=== PATIENT | male | born 1940 | race Caucasian/White ===

== ENCOUNTER 2017-11-11 13:42 | Outpatient (CLI) | payer MEDICARE ==
--- NOTE | 2017-11-11 15:25 | RAD ---
TWO VIEWS CHEST: COMPARISON: 11/20/14. HISTORY: Shortness of breath. FINDINGS: Atherosclerosis of the aorta. Enlarged cardiac silhouette. The pulmonary vessels are within normal limits. Costophrenic angles are clear. Chronic change in the lung bases. Possible focal mass versu s calcified granulomas are in the left suprahilar region measuring 0.7 cm. No pneumothorax or osseou s abnormalities. IMPRESSION: Calcified granuloma versus focal left suprahilar mass. Better interrogation with chest CT. CODE T POS: ERASMO
== END 2017-11-11 13:43 | disposition home or self-care (01) ==
LOC: RAD-FRANK 13:42
PROVIDERS: ATTEND Nurse Practitioner Family
DX: R06.02 Shortness of breath (principal)
CPT/HCPCS: 71046

== ENCOUNTER 2017-11-12 14:30 | Inpatient (IN) | payer MEDICARE ==
--- NOTE | 2017-11-12 15:28 | RAD ---
PORTABLE CHEST 1 VIEW: Date: 11/12/17 Time: 1515 hours HISTORY: Dyspnea. FINDINGS/IMPRESSION: Comparison made with exam of previous day. The heart size is normal. There are bilateral interstitial infiltrates. No lobar consolidation, pneum othoraces, or pleural effusions are seen. Degenerative changes are present in the spine. POS: CHRIS
[2017-11-12 15:52] LABS: #Basophils 0.2 thou/uL (0.0-0.2); #Lymphocytes 0.3 thou/uL (1.20-3.40); #Monocytes 0.1 thou/uL (0.11-0.59); #Neutrophils 10.4 thou/uL (1.40-6.50); %Basophils 1.6 % (0.0-1.0); %Eosinophils 0.2 % (0.0-10.0); %Lymphocytes 2.3 % (21.0-51.0); %Monocytes 0.6 % (0.0-10.0); %Neutrophils 95.3 % (42.0-75.0); Hemoglobin 16.4 g/dL (14.0-18.0); Mean Corpuscular HGB CONC 33.7 g/dL (32.0-36.0); Mean Corpuscular Volume 95.2 fl (80.0-94.0); Mean Platelet Volume 7.8 fL (7.4-10.4); Platelet Count 261 thou/uL (130-400); Red Blood Cell (RBC) Count 5.12 mill/uL (4.70-6.10); White Blood Cell (WBC) Count 10.9 thou/uL (4.8-10.8)
[2017-11-12 16:20] LABS: ALT (SGPT) 35 U/L (8-55); AST (SGOT) 21 U/L (5-34); Albumin 3.9 g/dL (3.4-4.8); Alkaline Phosphatase 127 U/L (40-150); Anion Gap 19 mmol/L (10-20); BUN (Urea Nitrogen) 15 mg/dL (8.4-25.7); Bilirubin, Total 1.2 mg/dL (0.2-1.2); CK (CPK) 115 U/L (30-200); Calc. Creatinine Clearance 0 mL/min (70-130); Calcium 9.5 mg/dL (7.8-10.44); Carbon Dioxide 23 mmol/L (23-31); Chloride 99 mmol/L (98-107); Estimated GFR-MDRD 61; Globulin 3.4 g/dL (2.4-3.5); Glucose 362 mg/dL (83-110); Potassium 4.4 mmol/L (3.5-5.1); Protein, Total 7.3 g/dL (5.8-8.1); Sodium 137 mmol/L (136-145)
[2017-11-12 16:24] LABS: CKMB 4.2 ng/mL (0-6.6); Troponin I 0.067 ng/mL (< 0.028)
[2017-11-12] MEDS ORDERED: Nitroglycerin 0.4 MG TAB (25 Tab Bottle) ONE (17:26)
[2017-11-12] MEDS ORDERED: Furosemide 20 MG/2 ML VIAL ONE (19:45)
[2017-11-12] MEDS ORDERED: Norepinephrine 4 MG/4 ML VIAL ONE (20:22)
[2017-11-12] MEDS ORDERED: Acetaminophen 325 MG TAB PO PRN ×2 (22:26→22:34)
[2017-11-12] MEDS ORDERED: Ondansetron HCl/PF 4 MG/2 ML Vial IVP PRN (22:34)
[2017-11-12] MEDS ORDERED: traMADol HCl 50 MG TAB PO PRN (22:34)
[2017-11-12] MEDS ORDERED: cloNIDine 0.1 MG TAB PO PRN (22:34)
[2017-11-12] MEDS ORDERED: hydrALAZINE 20 MG/ML VIAL SLOW IVP PRN (22:34)
[2017-11-12] MEDS ORDERED: Nitroglycerin 0.4 MG TAB (25 Tab Bottle) SL PRN (22:34)
[2017-11-12] MEDS ORDERED: Loratadine 10 MG TAB PO PRN (22:34)
[2017-11-12] MEDS ORDERED: Calcium Carbonate 500 MG ChewTAB PO PRN (22:34)
[2017-11-12] MEDS ORDERED: Guaifenesin DM 100-10/5 ML UDCUP PO PRN (22:34)
[2017-11-12] MEDS ORDERED: Benzonatate 100 MG CAP PO PRN (22:34)
[2017-11-12] MEDS ORDERED: Dextrose 50% Abboject 50 ML SYRINGE SLOW IVP PRN (22:34)
[2017-11-12] MEDS ORDERED: Bisacodyl 5 MG TAB PO PRN ×2 (22:34)
[2017-11-12] MEDS ORDERED: Dextrose 5% in Water 1,000 ML IV PRN (22:34)
[2017-11-12] MEDS ORDERED: Mag-Al 1200 mg/1200 mg/30 ML UDCUP PO PRN (22:34)
[2017-11-12] MEDS ORDERED: Senokot 8.6 MG TAB PO PRN ×2 (22:34)
[2017-11-12] MEDS ORDERED: HumaLOG 300 UNITS/3 ML VIAL SC PRN (22:34)
[2017-11-12 22:46] VITALS: BMI 28.3
--- NOTE | 2017-11-13 04:37 | HP ---
PRIMARY CARE PHYSICIAN: ADIA Das DATE OF ADMISSION: 11/12/2017 Please note that the patient was seen prior to midnight. CHIEF COMPLAINT: Worsening shortness of breath. HISTORY OF PRESENT ILLNESS: Mr. Clinton is a very pleasant 77-year-old male with past medical history of diabetes mellitus who presented to the emergency room with the above-mentioned complaints. Histor y is mainly obtained by the patient himself and electronic medical records have been reviewed. The p atient reports that he has been healthy most of his life up until now. He started to have some diffi culty walking to his mailbox about 2 weeks ago. He started to experience dry hacking cough. He repo rts that his was admitted to the hospital recently and he has been in and out of the hospital an d seems like he "caught something from the hospital." Nevertheless, his breathing got worse and he p resented to the emergency room. He keeps emphasizing that he has been otherwise very healthy all of his life and never needed physician. He uses Radha Alfredo, nurse practitioner for his diabetic prescr iption, but otherwise does not necessarily have any specific medical care. Upon presentation to the emergency room, his pulse was 101 and he was quite hypertensive with blood p ressure of 191/109. He was saturating 100% on room air and was afebrile. His physical examination was consistent with bilateral pitting edema in lower extremities. He underw ent EKG, which showed left ventricular hypertrophy without any acute ST or T-wave changes. His chest x-ray was concerning for bilateral interstitial infiltrates versus edema. He received aspirin, levo floxacin, and Lasix in the emergency room. His BNP was elevated to 1500. The patient denies any history of any heart disease. He denies any chest pain recently. He denies a ny fever or chills. Except for dry hacking cough and worsening shortness of breath for the last 2 we eks, he says he has been very healthy most of his life. PAST MEDICAL HISTORY: Diabetes mellitus, type 2, non-insulin dependent. PAST SURGICAL HISTORY: Carotid artery stenting. PAST PSYCHIATRIC HISTORY: No anxiety, depression. SOCIAL HISTORY: He is and lives with his and is very independent with his ADLs and IADL s. He used to chew tobacco, but has quit several years ago. No history of drug or alcohol abuse. FAMILY HISTORY: He denies any family members ever having any heart attack or stroke. He said most o f his family members lived to rather ripe old age, very healthy. ALLERGIES: No known medication allergies. CURRENT MEDICATIONS: Cozaar 50 mg at bedtime and Tenormin 50 mg daily. REVIEW OF SYSTEMS: The following complete review of systems was negative, unless otherwise mentioned in the HPI or below: Constitutional: Weight loss or gain, ability to conduct usual activities. Sk in: Rash, itching. Eyes: Double vision, pain. ENT/Mouth: Nose bleeding, neck stiffness, pain, te nderness. Cardiovascular: Palpitations, dyspnea on exertion, orthopnea. Respiratory: Shortness of breath, wheezing, cough, hemoptysis, fever or night sweats. Gastrointestinal: Poor appetite, abdom inal pain, heartburn, nausea, vomiting, constipation, or diarrhea. Genitourinary: Urgency, frequenc y, dysuria, nocturia. Musculoskeletal: Pain, swelling. Neurologic/Psychiatric: Anxiety, depressio n. Allergy/Immunologic: Skin rash, bleeding tendency. LABORATORY AND DIAGNOSTIC DATA: His CBC shows WBCs at 10.9 with 95% neutrophils. Serum chemistries show blood sugar of 362, troponin 0.067, and BNP 1594, otherwise unremarkable. His influenza rapid s wab is negative. His 12-lead EKG shows left ventricular hypertrophy by my review and normal sinus rh ythm, otherwise unremarkable. Chest x-ray by my review shows bilateral pulmonary vascular congestion and interstitial edema, but infiltrates can also not be ruled out. PHYSICAL EXAMINATION: VITAL SIGNS: His most recent vital signs include temperature 98.4, pulse of 95, respirations 20, sat urating 97% on room air, blood pressure 133/84. GENERAL: No acute distress, awake, alert, oriented x3. HEENT: Mucous membrane is moist and pink. No oropharyngeal exudate or erythema. Head is normocepha lic, atraumatic. Pupils are equal, reactive to light and accommodation. Extraocular movements are i ntact. NECK: Supple without any lymphadenopathy, JVD, or bruit. CHEST: Clear to auscultation, surprisingly without any wheezing, rales, or rhonchi. Equal air entry heart bilaterally. CARDIOVASCULAR: Rate and rhythm is regular without any significant murmur. ABDOMEN: Obese, soft, nontender, nondistended with positive bowel sounds. EXTREMITIES: Showed pitting edema bilaterally extending from toes almost up to his knees. NEUROLOGIC: Nonfocal. PSYCHIATRIC: Normal affect. SKIN: Free of any rashes or bruises. Feels warm and dry to touch. IMPRESSION AND PLAN: 1. New diagnosis of acute onset of congestive heart failure. It is unclear what is the etiology for this. Given his history of hypertension, diabetes, and tobacco abuse, coronary artery disease is mo st likely suspected. He can also have viral myocarditis given his prodromal symptoms of flu-like ill ness with last 2 weeks. Nevertheless, he will be admitted and continued on IV diuresis and we will o btain a transthoracic echocardiogram. Continue to trend serial cardiac enzymes and provide tighter b lood pressure control. We will also request consultation with Cardiology in the morning as well as c ardiac rehabilitation in the [facility] Failure [facility]. We will monitor strict I's and O's and provide hi m with fluid restriction of 1800 mL per day. 2. Hypertensive urgency. The patient's blood pressure is under better control. At this time, he wi ll be restarted on his home medication and we will add p.r.n. antihypertensives. 3. History of hypertension. Resume his losartan and Tenormin at this point. 4. Elevated cardiac enzymes, most likely due to hypertensive urgency and acute congestive heart fail ure. We will put him on aspirin and check lipid panel as well. Continue beta esther. 5. Diabetes mellitus, type 2. I am not sure what kind of medications the patient takes at home. We will put him on insulin sliding scale and do frequent Accu-Cheks. 6. Perform a respiratory viral panel to rule out influenza. 7. Deep venous thrombosis and gastrointestinal prophylaxis. CODE STATUS: FULL CODE. DISPOSITION: Mr. Clinton is currently being admitted to the hospital for acute new onset congestive he art failure and hypertensive urgency. Estimated length of stay is at least 2-3 midnight. Further management will depend upon his clinical course.
[2017-11-13] MEDS: Furosemide 40 MG/4 ML VIAL SLOW IVP SCH ×2 (05:24→14:27)
[2017-11-13 06:14] LABS: #Eosinphils 0.1 thou/uL (0.0-0.7); #Lymphocytes 0.8 thou/uL (1.20-3.40); #Monocytes 0.8 thou/uL (0.11-0.59); #Neutrophils 7.9 thou/uL (1.40-6.50); %Basophils 0.1 % (0.0-1.0); %Eosinophils 0.8 % (0.0-10.0); %Lymphocytes 8.5 % (21.0-51.0); %Monocytes 8.6 % (0.0-10.0); %Neutrophils 82.1 % (42.0-75.0); Hemoglobin 14.6 g/dL (14.0-18.0); Mean Corpuscular HGB CONC 33.5 g/dL (32.0-36.0); Mean Corpuscular Hemoglobin 31.9 pg (27.0-31.0); Mean Corpuscular Volume 95.2 fl (80.0-94.0); Mean Platelet Volume 7.6 fL (7.4-10.4); Platelet Count 248 thou/uL (130-400); RBC Distribution Width 12.9 % (11.5-14.5); Red Blood Cell (RBC) Count 4.56 mill/uL (4.70-6.10); White Blood Cell (WBC) Count 9.7 thou/uL (4.8-10.8)
[2017-11-13 06:34] LABS: Anion Gap 12 mmol/L (10-20); BUN (Urea Nitrogen) 18 mg/dL (8.4-25.7); Calc. Creatinine Clearance 69 mL/min (70-130); Calcium 9.3 mg/dL (7.8-10.44); Carbon Dioxide 26 mmol/L (23-31); Chloride 102 mmol/L (98-107); Estimated GFR-MDRD 71; Glucose 230 mg/dL (83-110); Potassium 3.8 mmol/L (3.5-5.1); Sodium 136 mmol/L (136-145)
[2017-11-13 06:36] LABS: Troponin I 0.081 ng/mL (< 0.028)
[2017-11-13] MEDS ORDERED: Sodium Chloride 0.9% 10 ML ONE (07:35)
[2017-11-13] MEDS: Atenolol 50 MG TAB PO SCH (07:55)
[2017-11-13] MEDS: Aspirin 325 mg Enteric Coated Tablet PO SCH (07:56)
[2017-11-13] MEDS: Famotidine 20 MG TAB PO SCH ×2 (07:56→21:17)
[2017-11-13] MEDS: Enoxaparin Sodium 40 MG/0.4 ML SYRINGE SC SCH (07:57)
[2017-11-13] MEDS: HumaLOG 300 UNITS/3 ML VIAL SC PRN (08:06)
[2017-11-13 09:28] LABS: Troponin I 0.094 ng/mL (< 0.028)
[2017-11-13 11:50] LABS: Hemoglobin A1c 4.5 % (4.0-6.0)
--- NOTE | 2017-11-13 12:51 | PDOC.PN ---
- Subjective Encounter Start Date: 11/13/17 Encounter Start Time: 10:15 Subjective: breathing better, no chest pain - Objective MAR Reviewed: Yes Vital Signs & Weight: Vital Signs (12 hours) Temp Pulse Pulse Pulse Resp BP BP 11/13/17 12:22 69 70 138/77 11/13/17 11:08 97.6 F 68 17 11/13/17 07:55 77 173/86 H 11/13/17 07:10 98.1 F 77 17 11/13/17 03:42 98.4 F 95 20 11/13/17 02:39 BP BP Pulse Ox Pulse Ox Pulse Ox 11/13/17 12:22 138/84 98 96 11/13/17 11:08 138/83 97 11/13/17 07:55 11/13/17 07:10 173/86 H 98 11/13/17 03:42 133/84 97 11/13/17 02:39 96 Weight Weight 179 lb 8 oz I&O: 11/12/17 11/13/17 11/14/17 06:59 06:59 06:59 Intake Total 250 Output Total 600 Balance -350 Result Diagrams: 11/13/17 05:47 11/13/17 05:47 Additional Labs: Accuchecks 11/13/17 11/13/17 11:21 06:38 POC Glucose 154 H 216 H Phys Exam - Physical Examination HEENT: PERRLA, moist MMs Neck: no JVD, supple Respiratory: no wheezing, no rales Cardiovascular: RRR murmur++ Gastrointestinal: soft, non-tender, positive bowel sounds Musculoskeletal: pulses present Neurological: non-focal, moves all 4 limbs Psychiatric: A&O x 3 Dx/Plan (1) Acute exacerbation of CHF (congestive heart failure) Code(s): I50.9 - HEART FAILURE, UNSPECIFIED Status: Acute Qualifiers: Congestive heart failure type: unspecified congestive heart failure type Qualified Code(s): I50.9 - Heart failure, unspecified (2) DM type 2 (diabetes mellitus, type 2) Status: Chronic Qualifiers: Diabetes mellitus complication status: with unspecified complications Diabetes mellitus residential insulin use: without extermination supervisor use Qualified Code( s): E11.8 - Type 2 diabetes mellitus with unspecified complications (3) Carotid arterial disease Code(s): I77.9 - DISORDER OF ARTERIES AND ARTERIOLES, UNSPECIFIED Status: Chronic Qualifiers: Laterality: bilateral Qualified Code(s): I77.9 - Disorder of arteries and arterioles, unspecified Comment: prior h/o stents b/l by ? (4) HTN (hypertension) Code(s): I10 - ESSENTIAL (PRIMARY) HYPERTENSION Status: Chronic Qualifiers: Hypertension type: essential hypertension Qualified Code(s): I10 - Essential (primary) hypertension - Plan has significant murmur, await echo results -: diuresing well -: is on lasix iv q12h, atenolol and cozaar -: mobilize as tolerated * . Review of Systems - Medications/Allergies Allergies/Adverse Reactions: Allergies Allergy/AdvReac Type Severity Reaction Status Date / Time No Known Drug Allergies Allergy Verified 11/12/17 22:29 Medications: Current Medications Acetaminophen (Tylenol) 650 mg PO Q4H PRN PRN Reason: Headache/Fever or Pain Al Hydroxide/Mg Hydroxide (Maalox) 30 ml PO Q6H PRN PRN Reason: Heartburn or Indigestion Aspirin (Ecotrin) 325 mg PO DAILY [facility] Last Admin: 11/13/17 07:56 Dose: 325 mg Atenolol (Tenormin) 50 mg PO DAILY [facility] Last Admin: 11/13/17 07:55 Dose: 50 mg Benzonatate (Tessalon) 100 mg PO Q4H PRN PRN Reason: Cough Bisacodyl (Dulcolax) 10 mg PO DAILYPRN PRN PRN Reason: Constipation Bisacodyl (Dulcolax) 10 mg PO DAILYPRN PRN PRN Reason: Constipation Calcium Carbonate (Tums) 1,000 mg PO Q4H PRN PRN Reason: Heartburn or Indigestion Clonidine (Catapres) 0.1 mg PO Q4H PRN PRN Reason: Systolic BP > 160 Dextrose/Water (Dextrose 50%) 25 gm SLOW IVP PRN PRN PRN Reason: Hypoglycemia Enoxaparin Sodium (Lovenox) 40 mg SC 0900 [facility] Last Admin: 11/13/17 07:57 Dose: 40 mg Famotidine (Pepcid) 20 mg PO BID [facility] Last Admin: 11/13/17 07:56 Dose: 20 mg Furosemide (Lasix) 40 mg SLOW IVP 0600,1400 [facility] Last Admin: 11/13/17 05:24 Dose: 40 mg Glucagon (Glucagon) 1 mg IM PRN PRN PRN Reason: Hypoglycemia Guaifenesin/Dextromethorphan (Robitussin Dm) 15 ml PO Q4H PRN PRN Reason: Cough Hydralazine HCl (Apresoline) 10 mg SLOW IVP Q4H PRN PRN Reason: Systolic BP > 180 Dextrose/Water (D5w) 1,000 mls @ 0 mls/hr IV .Q0M PRN; As Directed PRN Reason: Hypoglycemia Levofloxacin 500 mg/ Device 100 mls @ 100 mls/hr IVPB Q24HR [facility] Influenza Virus Vaccine (Fluzone High-Dose Syr) 0.5 ml IM .ONCE ONE Stop: 11/13/17 21:01 Insulin Human Lispro (Humalog) 0 units SC .MODERATE SLIDING SC PRN PRN Reason: Moderate Correctional Scale Last Admin: 11/13/17 08:06 Dose: 4 unit Insulin Human Lispro (Humalog) 0 units SC .BEDTIME SLIDING SC PRN PRN Reason: Bedtime Correctional Scale Loratadine (Claritin) 10 mg PO DAILYPRN PRN PRN Reason: Sinus Symptoms Losartan Potassium (Cozaar) 50 mg PO HS [facility] Nitroglycerin (Nitrostat) 0.4 mg SL Q5MIN PRN PRN Reason: Chest Pain Ondansetron HCl (Zofran) 4 mg IVP Q6H PRN PRN Reason: Nausea/Vomiting Pneumococcal 13-Valent Conj Vacc (Prevnar) 0.5 ml IM .ONCE ONE Stop: 11/13/17 21:01 Senna (Senokot) 2 tab PO HSPRN PRN PRN Reason: Constipation Senna (Senokot) 2 tab PO HSPRN PRN PRN Reason: Constipation Tramadol HCl (Ultram) 50 mg PO Q4H PRN PRN Reason: Moderate Pain (4-6)
--- NOTE | 2017-11-13 13:50 | CON ---
DATE OF CONSULTATION: 11/13/2017 CARDIOLOGY CONSULTATION REASON FOR CONSULTATION: Heart failure. PRIMARY BLINDSTITCH LINING FELLER: Alexandru Patterson M.D. HISTORY OF PRESENT ILLNESS: Mr. Clinton is a very pleasant 77-year-old white gentleman who comes to [facility] for shortness of breath. He has been noticing increasingly worsening shortness of breath for the last 2 weeks to the point where he could not lay flat without coughing. He came in for this and was found to be in pulmonary edema with elevated BNP. He was started on IV diuresis yesterday an d is doing much better today. He states he already feels better. He has a significant history of co ronary artery disease. In 2007, he had an acute WI and ended up having a stent to the LAD as well as the RCA. He followed up with Dr. Patterson for a few months after that. He had an echo done in 2007 at which point his EF was about 45%-50% and he had an aortic valve sclerosis, but no stenosis. He never really followed up after the end of 2007 and he is not aware of having had any issues with h is heart since then. Currently, he denies any chest pain, tightness or pressure. Only his shortness of breath. PAST MEDICAL HISTORY: 1. Type 2 diabetes. 2. Coronary artery disease as above. PAST SURGICAL HISTORY: He gives a history of carotid stenting; however, he states Dr. Patterson put in these stents. I do not believe that Dr. Patterson puts carotid stents and he is most likely talki ng about the coronary stents that he received during his episode of an WI in 2007. SOCIAL HISTORY: Chews tobacco, but quit several years ago. No drug or alcohol use. FAMILY HISTORY: Noncontributory. ALLERGIES: No known drug allergies. OUTPATIENT MEDICATIONS: Include, 1. Cozaar 50 mg at bedtime. 2. Tenormin 50 mg a day. REVIEW OF SYSTEMS: A 12-point review of systems was done and is all negative unless stated in the hi story of present illness. PHYSICAL EXAMINATION: VITAL SIGNS: Temperature 97.6, pulse 68, respiration rate 17, satting 97% on room air, blood pressur e 138/83. GENERAL: Awake, alert, oriented x3, in no distress. HEENT: Normocephalic, atraumatic. NECK: Supple. LUNGS: Mild crackles at the bases. CARDIOVASCULAR: S1, S2. There is a grade 3/6 systolic murmur in the right upper sternal border, mid to late peaking. It radiates to the rest of the precordium. ABDOMEN: Soft, positive bowel sounds. EXTREMITIES: 1+ edema. SKIN: Warm and dry. LABORATORY WORK: Reviewed. White count of 10, hemoglobin of 16, platelet count of 261. Chemistry w as unremarkable except for a glucose of 230. His GFR is 71. His troponins were 0.06, 0.08, 0.09. H is BNP was 2047. Albumin of 3.9. EKG was reviewed. Chest x-ray was reviewed, bilateral interstitial infiltrates, most likely edema. ASSESSMENT AND PLAN: 1. Ischemic cardiomyopathy, most likely: He has not had an evaluation of his LV function for many y ears. 2. Coronary artery disease, status post percutaneous coronary intervention of the LAD and left circu mflex about 10 years ago with no followup. 3. Noncompliance with followup. 4. Most likely new onset cardiomyopathy. 5. Acute most likely systolic heart failure. PLAN: 1. Continue IV diuresis. 2. Echocardiogram to be done to assess LV function and valvular structures. 3. I suspect aortic valve stenosis as well. He had aortic valve sclerosis 10 years ago, but this mo st likely has progressed since. Thank you for letting us participate in the care of your patient. We will continue to follow.
[2017-11-13] MEDS ORDERED: Prevnar 13-Val Conj/PF 0.5 ML SYRINGE IM ONE (21:00)
[2017-11-13] MEDS ORDERED: Losartan 25 MG TAB PO SCH (21:00)
[2017-11-13] MEDS ORDERED: FLU VACC TS2017-18 (>65YR) 0.5 ML SYRINGE IM ONE (21:00)
[2017-11-14] MEDS: Furosemide 40 MG/4 ML VIAL SLOW IVP SCH ×2 (05:54→14:09)
[2017-11-14] MEDS ORDERED: Sodium Chloride 0.9% 10 ML ONE (07:12)
[2017-11-14] MEDS: Aspirin 325 mg Enteric Coated Tablet PO SCH (09:05)
[2017-11-14] MEDS: Enoxaparin Sodium 40 MG/0.4 ML SYRINGE SC SCH (09:06)
[2017-11-14] MEDS: Atenolol 50 MG TAB PO SCH (09:06)
[2017-11-14] MEDS: Famotidine 20 MG TAB PO SCH ×2 (09:07→20:25)
--- NOTE | 2017-11-14 11:15 | PDOC.PN ---
- Subjective Encounter Start Date: 11/14/17 Encounter Start Time: 10:15 Subjective: breathing better -: no chest pain or palp - Objective MAR Reviewed: Yes Vital Signs & Weight: Vital Signs (12 hours) Temp Pulse Resp BP BP Pulse Ox 11/14/17 09:06 64 174/81 H 11/14/17 07:58 97.7 F 64 18 98 11/14/17 07:55 97.7 F 64 18 174/81 H 98 11/14/17 03:58 97.9 F 62 16 176/89 H 98 Weight Weight 178 lb 1.6 oz I&O: 11/13/17 11/14/17 11/15/17 06:59 06:59 06:59 Intake Total 1510 Output Total 2650 Balance -1140 Result Diagrams: 11/13/17 05:47 11/13/17 05:47 Additional Labs: Accuchecks 11/14/17 11/13/17 11/13/17 05:40 21:35 17:19 POC Glucose 166 H 260 H 235 H 11/13/17 11:21 POC Glucose 154 H Phys Exam - Physical Examination HEENT: PERRLA, moist MMs Neck: no JVD, supple Respiratory: no wheezing, no rales Cardiovascular: RRR murmur++ Gastrointestinal: soft, no distention, positive bowel sounds Musculoskeletal: no edema, pulses present Neurological: non-focal, moves all 4 limbs Psychiatric: A&O x 3 Dx/Plan (1) Acute exacerbation of CHF (congestive heart failure) Code(s): I50.9 - HEART FAILURE, UNSPECIFIED Status: Acute Qualifiers: Congestive heart failure type: systolic Qualified Code(s): I50.23 - Acute on chronic systolic (congestive) heart failure Comment: ef of 20% (2) DM type 2 (diabetes mellitus, type 2) Status: Chronic Qualifiers: Diabetes mellitus complication status: with unspecified complications Diabetes mellitus penitentiary insulin use: without terminal superintendent use Qualified Code( s): E11.8 - Type 2 diabetes mellitus with unspecified complications (3) Carotid arterial disease Code(s): I77.9 - DISORDER OF ARTERIES AND ARTERIOLES, UNSPECIFIED Status: Chronic Qualifiers: Laterality: bilateral Qualified Code(s): I77.9 - Disorder of arteries and arterioles, unspecified Comment: prior h/o stents b/l? (4) HTN (hypertension) Code(s): I10 - ESSENTIAL (PRIMARY) HYPERTENSION Status: Chronic Qualifiers: Hypertension type: essential hypertension Qualified Code(s): I10 - Essential (primary) hypertension (5) Aortic stenosis, severe Code(s): I35.0 - NONRHEUMATIC AORTIC (VALVE) STENOSIS Status: Acute - Plan ef of 15-20%, aortic valve area of 0.5cm square -: gentle diuresis -: will need cath? likely, possible tavr as outpt -: on asp, atenolol, cozaar, iv lasix -: viral pcr is -ve, levaquin for 3 days, no fever after admission * . Review of Systems - Medications/Allergies Allergies/Adverse Reactions: Allergies Allergy/AdvReac Type Severity Reaction Status Date / Time No Known Drug Allergies Allergy Verified 11/12/17 22:29 Medications: Current Medications Acetaminophen (Tylenol) 650 mg PO Q4H PRN PRN Reason: Headache/Fever or Pain Al Hydroxide/Mg Hydroxide (Maalox) 30 ml PO Q6H PRN PRN Reason: Heartburn or Indigestion Aspirin (Ecotrin) 325 mg PO DAILY [facility] Last Admin: 11/14/17 09:05 Dose: 325 mg Atenolol (Tenormin) 50 mg PO DAILY [facility] Last Admin: 11/14/17 09:06 Dose: 50 mg Benzonatate (Tessalon) 100 mg PO Q4H PRN PRN Reason: Cough Bisacodyl (Dulcolax) 10 mg PO DAILYPRN PRN PRN Reason: Constipation Bisacodyl (Dulcolax) 10 mg PO DAILYPRN PRN PRN Reason: Constipation Calcium Carbonate (Tums) 1,000 mg PO Q4H PRN PRN Reason: Heartburn or Indigestion Clonidine (Catapres) 0.1 mg PO Q4H PRN PRN Reason: Systolic BP > 160 Dextrose/Water (Dextrose 50%) 25 gm SLOW IVP PRN PRN PRN Reason: Hypoglycemia Enoxaparin Sodium (Lovenox) 40 mg SC 0900 [facility] Last Admin: 11/14/17 09:06 Dose: 40 mg Famotidine (Pepcid) 20 mg PO BID [facility] Last Admin: 11/14/17 09:07 Dose: 20 mg Furosemide (Lasix) 40 mg SLOW IVP 0600,1400 [facility] Last Admin: 11/14/17 05:54 Dose: 40 mg Glucagon (Glucagon) 1 mg IM PRN PRN PRN Reason: Hypoglycemia Guaifenesin/Dextromethorphan (Robitussin Dm) 15 ml PO Q4H PRN PRN Reason: Cough Hydralazine HCl (Apresoline) 10 mg SLOW IVP Q4H PRN PRN Reason: Systolic BP > 180 Dextrose/Water (D5w) 1,000 mls @ 0 mls/hr IV .Q0M PRN; As Directed PRN Reason: Hypoglycemia Levofloxacin 500 mg/ Device 100 mls @ 100 mls/hr IVPB Q24HR [facility] Last Admin: 11/13/17 21:17 Dose: 100 mls Insulin Human Lispro (Humalog) 0 units SC .MODERATE SLIDING SC PRN PRN Reason: Moderate Correctional Scale Last Admin: 11/13/17 08:06 Dose: 4 unit Insulin Human Lispro (Humalog) 0 units SC .BEDTIME SLIDING SC PRN PRN Reason: Bedtime Correctional Scale Loratadine (Claritin) 10 mg PO DAILYPRN PRN PRN Reason: Sinus Symptoms Losartan Potassium (Cozaar) 50 mg PO HS [facility] Last Admin: 11/13/17 21:17 Dose: 50 mg Nitroglycerin (Nitrostat) 0.4 mg SL Q5MIN PRN PRN Reason: Chest Pain Ondansetron HCl (Zofran) 4 mg IVP Q6H PRN PRN Reason: Nausea/Vomiting Senna (Senokot) 2 tab PO HSPRN PRN PRN Reason: Constipation Senna (Senokot) 2 tab PO HSPRN PRN PRN Reason: Constipation Tramadol HCl (Ultram) 50 mg PO Q4H PRN PRN Reason: Moderate Pain (4-6)
[2017-11-14] MEDS: HumaLOG 300 UNITS/3 ML VIAL SC PRN (11:41)
--- NOTE | 2017-11-14 16:35 | PDOC.CTH ---
Cardiology Progress Note - Subjective he is doing well. he has diuresed and his breathing is much better. on room air now. - Objective Vital Signs Temp Pulse Pulse Pulse Resp BP BP 11/14/17 16:05 98.1 F 60 18 11/14/17 12:38 79 78 170/81 H 11/14/17 11:40 98.2 F 58 L 18 11/14/17 09:06 64 174/81 H 11/14/17 07:58 97.7 F 64 18 11/14/17 07:55 97.7 F 64 18 BP BP Pulse Ox Pulse Ox Pulse Ox 11/14/17 16:05 147/78 H 96 11/14/17 12:38 157/82 H 99 95 11/14/17 11:40 154/72 H 98 11/14/17 09:06 11/14/17 07:58 98 11/14/17 07:55 174/81 H 98 Weight 178 lb 1.6 oz 11/13/17 11/14/17 11/15/17 06:59 06:59 06:59 Intake Total 1510 Output Total 2650 Balance -1140 - Physical Examination General/Neuro: alert & oriented x3, NAD Neck: no JVD present Lungs: unlabored respirations Heart: RRR Abdomen: NT/ND Extremities: other: (no edema.) - Telemetry Telemetry Rhythm: NSR - Labs Result Diagrams: 11/13/17 05:47 11/13/17 05:47 Troponin/CKMB CK-MB (CK-2) 4.2 ng/mL (0-6.6) 11/12/17 15:41 Troponin I 0.094 ng/mL (< 0.028) H 11/13/17 08:34 - Assessment/Plan 1. Acute on chronic systolic heart failure. 2. CAD s/p stent to LAD and LCX 10 yrs ago no follow up. 3. Non compliance. 4. HTN no t well controlled. PLAN: - [facility] for risk stratification per Dr. Patterson tomorrow. - Continue other meds. - Will increase Losartan to 100 mg daily. Continue atenolol.
[2017-11-14] MEDS ORDERED: Communication Order-Pharmacy FS SCH (16:45)
[2017-11-14] MEDS ORDERED: Sodium Chloride 0.9% 1,000 ML IV SCH (16:45)
[2017-11-14] MEDS: Losartan 25 MG TAB PO SCH (20:25)
[2017-11-15 05:39] LABS: Anion Gap 10 mmol/L (10-20); BUN (Urea Nitrogen) 20 mg/dL (8.4-25.7); Calc. Creatinine Clearance 64 mL/min (70-130); Calcium 9.3 mg/dL (7.8-10.44); Carbon Dioxide 32 mmol/L (23-31); Chloride 99 mmol/L (98-107); Estimated GFR-MDRD 66; Glucose 133 mg/dL (83-110); Potassium 3.4 mmol/L (3.5-5.1); Sodium 138 mmol/L (136-145)
[2017-11-15] MEDS: Sodium Chloride 0.9% 1,000 ML IV SCH (05:43)
[2017-11-15] MEDS: Famotidine 20 MG TAB PO SCH ×2 (05:44→20:57)
[2017-11-15] MEDS: Aspirin 325 mg Enteric Coated Tablet PO SCH (05:46)
[2017-11-15] MEDS: Atenolol 50 MG TAB PO SCH (07:33)
[2017-11-15] MEDS ORDERED: Iopamidol 370 76% 100 ML VIAL ONE (11:03)
[2017-11-15] MEDS ORDERED: Lidocaine 1% (PF) 30 ML VIAL ONE (12:00)
[2017-11-15] MEDS ORDERED: Fentanyl 100 MCG/2 ML VIAL ONE (12:28)
[2017-11-15] MEDS ORDERED: Midazolam HCl 2 mg/2 ml Vial ONE (12:28)
--- NOTE | 2017-11-15 12:46 | PRG ---
DATE OF SERVICE: 11/15/2017 HISTORY OF PRESENT ILLNESS: Mr. Clinton today is doing well. No chest pain or pressure noted. I did review his echo. He appeared to have moderate to severe aortic stenosis. It was heavily calci fied. His calculated valve area was 0.5, although his LVEF was markedly diminished making the gradie nts underestimated. RECOMMENDATIONS: At this point, I would recommend a left and right heart catheterization to assess a ortic stenosis. I discussed the procedure in full detail with Mr. Clinton. The risks included, but no t limited to the following: , stroke, TX, need for emergency surgery, loss of limb, bleeding, a nd infection, as well as a reaction to the dye causing kidney failure and needing long-term dialysis. I also discussed the risks of PCI to include all of the above including coronary dissection and per foration in addition to acute stent thrombosis and restenosis. All questions about the procedure wer e answered. Given the above, the patient agreed to proceed with coronary angiography and possible PC I. I also discussed this with his son. Further recommendations will be based on the findings.
--- NOTE | 2017-11-15 12:51 | PDOC.PN ---
- Subjective Encounter Start Date: 11/15/17 Encounter Start Time: 08:00 Subjective: no sob or chest pain -: is npo for cath today - Objective MAR Reviewed: Yes Vital Signs & Weight: Vital Signs (12 hours) Temp Pulse Resp BP BP Pulse Ox 11/15/17 12:02 97.6 F 59 L 18 176/90 H 99 11/15/17 07:34 98.0 F 61 18 98 11/15/17 07:33 61 178/87 H 11/15/17 07:29 98.0 F 61 18 178/87 H 98 11/15/17 04:00 97.7 F 59 L 18 155/70 H 98 Weight Weight 178 lb I&O: 11/14/17 11/15/17 11/16/17 06:59 06:59 06:59 Intake Total 1510 900 Output Total 2650 1750 Balance -1140 -850 Result Diagrams: 11/13/17 05:47 11/15/17 04:23 Additional Labs: Accuchecks 11/15/17 11/15/17 11/14/17 11:15 05:40 20:04 POC Glucose 158 H 142 H 307 H 11/14/17 16:12 POC Glucose 200 H Phys Exam - Physical Examination HEENT: PERRLA, moist MMs Neck: no JVD, supple Respiratory: no wheezing, no rales Cardiovascular: RRR murmur++ Gastrointestinal: soft, non-tender, positive bowel sounds Musculoskeletal: no edema, pulses present Neurological: non-focal, moves all 4 limbs Psychiatric: A&O x 3 Dx/Plan (1) Acute exacerbation of CHF (congestive heart failure) Code(s): I50.9 - HEART FAILURE, UNSPECIFIED Status: Acute Qualifiers: Congestive heart failure type: systolic Qualified Code(s): I50.23 - Acute on chronic systolic (congestive) heart failure Comment: ef of 20% (2) DM type 2 (diabetes mellitus, type 2) Status: Chronic Qualifiers: Diabetes mellitus complication status: with unspecified complications Diabetes mellitus executive housekeeper insulin use: without retirement use Qualified Code( s): E11.8 - Type 2 diabetes mellitus with unspecified complications (3) Carotid arterial disease Code(s): I77.9 - DISORDER OF ARTERIES AND ARTERIOLES, UNSPECIFIED Status: Chronic Qualifiers: Laterality: bilateral Qualified Code(s): I77.9 - Disorder of arteries and arterioles, unspecified Comment: prior h/o stents b/l? (4) HTN (hypertension) Code(s): I10 - ESSENTIAL (PRIMARY) HYPERTENSION Status: Chronic Qualifiers: Hypertension type: essential hypertension Qualified Code(s): I10 - Essential (primary) hypertension (5) Aortic stenosis, severe Code(s): I35.0 - NONRHEUMATIC AORTIC (VALVE) STENOSIS Status: Acute - Plan for cath today -: off lasix for now -: is on asp, tenormin and cozaar -: will dc levaquin in am -: add glipizide (fingersticks around [phone]) * . Review of Systems - Medications/Allergies Allergies/Adverse Reactions: Allergies Allergy/AdvReac Type Severity Reaction Status Date / Time No Known Drug Allergies Allergy Verified 11/12/17 22:29 Medications: Current Medications Acetaminophen (Tylenol) 650 mg PO Q4H PRN PRN Reason: Headache/Fever or Pain Al Hydroxide/Mg Hydroxide (Maalox) 30 ml PO Q6H PRN PRN Reason: Heartburn or Indigestion Aspirin (Ecotrin) 325 mg PO DAILY [facility] Last Admin: 11/15/17 05:46 Dose: 325 mg Atenolol (Tenormin) 50 mg PO DAILY [facility] Last Admin: 11/15/17 07:33 Dose: 50 mg Benzonatate (Tessalon) 100 mg PO Q4H PRN PRN Reason: Cough Bisacodyl (Dulcolax) 10 mg PO DAILYPRN PRN PRN Reason: Constipation Bisacodyl (Dulcolax) 10 mg PO DAILYPRN PRN PRN Reason: Constipation Calcium Carbonate (Tums) 1,000 mg PO Q4H PRN PRN Reason: Heartburn or Indigestion Clonidine (Catapres) 0.1 mg PO Q4H PRN PRN Reason: Systolic BP > 160 Dextrose/Water (Dextrose 50%) 25 gm SLOW IVP PRN PRN PRN Reason: Hypoglycemia Famotidine (Pepcid) 20 mg PO BID [facility] Last Admin: 11/15/17 05:44 Dose: 20 mg Glipizide (Glucotrol) 5 mg PO DAILY-[facility] Glipizide (Glucotrol) 5 mg PO ONE [facility] Stop: 11/15/17 16:00 Glucagon (Glucagon) 1 mg IM PRN PRN PRN Reason: Hypoglycemia Guaifenesin/Dextromethorphan (Robitussin Dm) 15 ml PO Q4H PRN PRN Reason: Cough Hydralazine HCl (Apresoline) 10 mg SLOW IVP Q4H PRN PRN Reason: Systolic BP > 180 Dextrose/Water (D5w) 1,000 mls @ 0 mls/hr IV .Q0M PRN; As Directed PRN Reason: Hypoglycemia Levofloxacin 500 mg/ Device 100 mls @ 100 mls/hr IVPB Q24HR [facility] Last Admin: 11/14/17 20:24 Dose: 100 mls Sodium Chloride (Normal Saline 0.9%) 1,000 mls @ 75 mls/hr IV .[id number] [facility] Last Admin: 11/15/17 05:43 Dose: 1,000 mls Insulin Human Lispro (Humalog) 0 units SC .MODERATE SLIDING SC PRN PRN Reason: Moderate Correctional Scale Last Admin: 11/14/17 11:41 Dose: 10 unit Insulin Human Lispro (Humalog) 0 units SC .BEDTIME SLIDING SC PRN PRN Reason: Bedtime Correctional Scale Last Admin: 11/14/17 21:58 Dose: 4 unit Loratadine (Claritin) 10 mg PO DAILYPRN PRN PRN Reason: Sinus Symptoms Losartan Potassium (Cozaar) 100 mg PO HS [facility] Last Admin: 11/14/17 20:25 Dose: 100 mg Nitroglycerin (Nitrostat) 0.4 mg SL Q5MIN PRN PRN Reason: Chest Pain Ondansetron HCl (Zofran) 4 mg IVP Q6H PRN PRN Reason: Nausea/Vomiting Senna (Senokot) 2 tab PO HSPRN PRN PRN Reason: Constipation Senna (Senokot) 2 tab PO HSPRN PRN PRN Reason: Constipation Sodium Chloride (Flush - Normal Saline) 10 ml IVF Q12HR [facility] Last Admin: 11/15/17 08:01 Dose: Not Given Sodium Chloride (Flush - Normal Saline) 10 ml IVF PRN PRN PRN Reason: Saline Flush Tramadol HCl (Ultram) 50 mg PO Q4H PRN PRN Reason: Moderate Pain (4-6)
[2017-11-15] MEDS ORDERED: hydrALAZINE 20 MG/ML VIAL ONE (13:16)
[2017-11-15] MEDS ORDERED: Acetaminophen/Codeine 30-300mg Tablet PO PRN ×2 (14:56)
[2017-11-15] MEDS ORDERED: Nitroglycerin 0.4 MG TAB (25 Tab Bottle) SL PRN (14:56)
[2017-11-15] MEDS ORDERED: traMADol HCl 50 MG TAB PO PRN (14:56)
[2017-11-15] MEDS ORDERED: Sodium Chloride 0.9% 200 ML IV SCH (15:00)
[2017-11-15] MEDS ORDERED: Sodium Chloride 0.9% 1,000 ML IV SCH (15:00)
[2017-11-15] MEDS ORDERED: glipiZIDE 5 MG TAB PO SCH (15:00)
--- NOTE | 2017-11-15 18:00 | CON ---
DATE OF CONSULTATION: 11/15/2017 HISTORY OF PRESENT ILLNESS: This is a 77-year-old gentleman with poor grasp of his medical problems. In 2007, he underwent emergent stenting of a proximal LAD as well as distal circumflex. He followe d up with his local doctor in [place] and was lost to followup here with the patient stating that he did not follow up with Dr. Patterson because he was feeling fine. He has been on Tenormin and losar [place] since that time; however, in the last 2 to 3 weeks, he has become dyspneic with minimal exertion and developed lower extremity edema. He required hospitalization at this time and his cardiac echo s howed a 15% ejection fraction, mild MR and probably severe with a valve area of 0.5, although maxi mum velocity was only 2.5 meters per second and gradient was only 17, probably reflecting his poor ej ection fraction. Cardiac catheterization today showed triple vessel coronary artery disease with an occluded right. When comparing his films from 2007, the patient had distal right coronary artery dis ease with small targets. Currently, he has left to right collaterals. His distal circumflex has a s tenosis prior to the stent. His LAD is diffusely diseased distally and he has a stenosis in a diagona l and a ramus branch. Mitral annulus is heavily calcified. PAST MEDICAL HISTORY: Difficult to obtain. The patient states he thinks he has diabetes for which h araceli takes atenolol. His hemoglobin A1c is 4.5 suggesting that he does not have this diagnosis. SOCIAL HISTORY: The patient is and lives with his . 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 PAST SURGICAL HISTORY: Coronary artery stenting. MEDICATIONS: As mentioned Cozaar and Tenormin. ALLERGIES: None known. SOCIAL HISTORY: The patient has never smoked. PHYSICAL EXAMINATION: GENERAL: He is alert and cooperative gentleman, 5 feet 7 inches, 178 pounds. NECK: I do not appreciate any carotid bruits. CARDIAC: Reveals a high pitched soft systolic murmur at the right upper sternal border and a harsh 3 /6 systolic murmur at the left lower sternal border. LUNGS: Clear to auscultation anteriorly. ABDOMEN: Scaphoid with no aneurysm and nontender. No organomegaly. EXTREMITIES: He has palpable femoral and popliteal pulses as well as a weak right dorsalis pedis pul se. I feel no pedal pulses in the left foot. He has no edema at this time, although did on admissio n. ASSESSMENT AND PLAN: The patient presents with probable severe aortic valve stenosis, severe coronar y artery disease and severe impairment of his ejection fraction. He probably presents prohibitive surgical risk on this admission, but perhaps a short 2 to 3 week. A medical management perhaps with consideration for balloon valvuloplasty, he may be a better candidat e.
[2017-11-15] MEDS: Losartan 25 MG TAB PO SCH (20:57)
[2017-11-16] MEDS: Sodium Chloride 0.9% 1,000 ML IV SCH (04:10)
[2017-11-16 05:31] LABS: Anion Gap 10 mmol/L (10-20); BUN (Urea Nitrogen) 21 mg/dL (8.4-25.7); Calc. Creatinine Clearance 72 mL/min (70-130); Calcium 8.9 mg/dL (7.8-10.44); Carbon Dioxide 25 mmol/L (23-31); Chloride 103 mmol/L (98-107); Estimated GFR-MDRD 79; Glucose 188 mg/dL (83-110); Potassium 3.4 mmol/L (3.5-5.1); Sodium 135 mmol/L (136-145)
[2017-11-16] MEDS ORDERED: glipiZIDE 5 MG TAB PO SCH (07:30)
[2017-11-16] MEDS ORDERED: Carvedilol 3.125 MG TAB PO SCH (09:00)
[2017-11-16] MEDS: Famotidine 20 MG TAB PO SCH (09:05)
[2017-11-16] MEDS: Aspirin 325 mg Enteric Coated Tablet PO SCH (09:05)
--- NOTE | 2017-11-16 09:14 | PRG ---
DATE OF SERVICE: 11/16/2017 SUBJECTIVE: Mr. Cilnton is doing well, no current complaints. No chest pain or pressure. His shortne ss of breath has markedly improved. PHYSICAL EXAMINATION: GENERAL: Patient is a pleasant male who is in no acute distress. The patient appears his stated age . VITAL SIGNS: Blood pressure 175/81, pulse 69, temperature 97.8. NEUROLOGIC: The patient is alert and oriented times 3 with no focal neurologic deficits. HEENT: Sclerae without icterus. Mouth has moist mucous membranes with normal pallor. NECK: No JVD. Carotid upstroke brisk. No bruits bilaterally. LUNGS: Clear to auscultation with unlabored respirations. BACK: No scoliosis or kyphosis. CARDIAC: Regular rate and rhythm with a 2/6 systolic ejection murmur. ABDOMEN: Soft, nontender, nondistended. No peritoneal signs present. No hepatosplenomegaly. No ab normal striae. EXTREMITIES: 2+ femoral and 2+ dorsalis pedis pulses. No cyanosis, clubbing, or edema. SKIN: No gross abnormalities. PERTINENT LABORATORY DATA: Hemoglobin 14.6, creatinine 0.93. IMPRESSION: 1. Severe multivessel disease. 2. Severe cardiomyopathy. 3. Severe aortic stenosis. RECOMMENDATIONS: The options are certainly limited for Mr. Clinton. I discussed the case with Dr. Matt Crocker this morning. He feels he is prohibitive risk for an operation. I presented different option s for Mr. Clinton including valvuloplasty versus stent implantation versus TAVR and stent implantation. At this point, he would like to discuss this further as an outpatient. He would like to try and go home today. From my standpoint, it seems reasonable. He is currently on beta esther therapy in ad dition to aspirin. He is also on losartan. I have changed his atenolol to Coreg. From my standpoin t, it would be okay for discharge with close outpatient followup and discuss further options.
--- NOTE | 2017-11-16 11:06 | PDOC.PN ---
- Subjective Encounter Start Date: 11/16/17 Encounter Start Time: 09:40 Subjective: no sob or palpitations - Objective MAR Reviewed: Yes Vital Signs & Weight: Vital Signs (12 hours) Temp Pulse Resp BP Pulse Ox 11/16/17 08:15 98.9 F 59 L 18 161/72 H 100 11/16/17 04:26 175/81 H 11/16/17 03:51 97.8 F 69 15 98 Weight Weight 171 lb 6.4 oz I&O: 11/15/17 11/16/17 11/17/17 06:59 06:59 06:59 Intake Total 900 220 Output Total 1750 Balance -850 220 Result Diagrams: 11/13/17 05:47 11/16/17 04:22 Additional Labs: Accuchecks 11/16/17 11/15/17 11/15/17 05:57 19:38 15:27 POC Glucose 180 H 299 H 188 H 11/15/17 11:15 POC Glucose 158 H Phys Exam - Physical Examination HEENT: PERRLA, moist MMs Neck: no JVD, supple Respiratory: no wheezing, no rales Cardiovascular: RRR murmur++ Gastrointestinal: soft, non-tender, positive bowel sounds Musculoskeletal: no edema, pulses present Neurological: non-focal, moves all 4 limbs Psychiatric: A&O x 3 Dx/Plan (1) CAD (coronary artery disease) Code(s): I25.10 - ATHSCL HEART DISEASE OF [place] CORONARY ARTERY W/O ANG PCTRS Status: Acute Qualifiers: Coronary Disease-Associated Artery/Lesion type: [place] artery [place] vs. transplanted heart: [place] heart Associated angina: without angina Qualified Code(s): I25.10 - Atherosclerotic heart disease of [place] coronary artery without angina pectoris (2) Acute exacerbation of CHF (congestive heart failure) Code(s): I50.9 - HEART FAILURE, UNSPECIFIED Status: Acute Qualifiers: Congestive heart failure type: systolic Qualified Code(s): I50.23 - Acute on chronic systolic (congestive) heart failure Comment: ef of 20% (3) DM type 2 (diabetes mellitus, type 2) Status: Chronic Qualifiers: Diabetes mellitus complication status: with unspecified complications Diabetes mellitus senior care insulin use: without long term care pharmacist use Qualified Code( s): E11.8 - Type 2 diabetes mellitus with unspecified complications (4) Carotid arterial disease Code(s): I77.9 - DISORDER OF ARTERIES AND ARTERIOLES, UNSPECIFIED Status: Chronic Qualifiers: Laterality: bilateral Qualified Code(s): I77.9 - Disorder of arteries and arterioles, unspecified Comment: prior h/o stents b/l? (5) HTN (hypertension) Code(s): I10 - ESSENTIAL (PRIMARY) HYPERTENSION Status: Chronic Qualifiers: Hypertension type: essential hypertension Qualified Code(s): I10 - Essential (primary) hypertension (6) Aortic stenosis, severe Code(s): I35.0 - NONRHEUMATIC AORTIC (VALVE) STENOSIS Status: Acute - Plan is prohibitive risk for cabg with avr per CTS -: to f/u with as outpt and discuss options -: dc plan home per cardio advice -: tried calling his , unable to reach her * . Review of Systems - Medications/Allergies Allergies/Adverse Reactions: Allergies Allergy/AdvReac Type Severity Reaction Status Date / Time No Known Drug Allergies Allergy Verified 11/12/17 22:29 Medications: Current Medications Acetaminophen (Tylenol) 650 mg PO Q4H PRN PRN Reason: Headache/Fever or Pain Acetaminophen/Codeine Phosphate (Tylenol #3) 1 tab PO Q4H PRN PRN Reason: Mild Pain (1-3) Acetaminophen/Codeine Phosphate (Tylenol #3) 2 tab PO Q4H PRN PRN Reason: Moderate Pain (4-6) Al Hydroxide/Mg Hydroxide (Maalox) 30 ml PO Q6H PRN PRN Reason: Heartburn or Indigestion Aspirin (Ecotrin) 325 mg PO DAILY [facility] Last Admin: 11/16/17 09:05 Dose: 325 mg Benzonatate (Tessalon) 100 mg PO Q4H PRN PRN Reason: Cough Bisacodyl (Dulcolax) 10 mg PO DAILYPRN PRN PRN Reason: Constipation Bisacodyl (Dulcolax) 10 mg PO DAILYPRN PRN PRN Reason: Constipation Calcium Carbonate (Tums) 1,000 mg PO Q4H PRN PRN Reason: Heartburn or Indigestion Carvedilol (Coreg) 3.125 mg PO BID [facility] Last Admin: 11/16/17 09:05 Dose: 3.125 mg Clonidine (Catapres) 0.1 mg PO Q4H PRN PRN Reason: Systolic BP > 160 Dextrose/Water (Dextrose 50%) 25 gm SLOW IVP PRN PRN PRN Reason: Hypoglycemia Famotidine (Pepcid) 20 mg PO BID [facility] Last Admin: 11/16/17 09:05 Dose: 20 mg Glipizide (Glucotrol) 5 mg PO DAILY-[facility] Last Admin: 11/16/17 09:05 Dose: 5 mg Glucagon (Glucagon) 1 mg IM PRN PRN PRN Reason: Hypoglycemia Guaifenesin/Dextromethorphan (Robitussin Dm) 15 ml PO Q4H PRN PRN Reason: Cough Hydralazine HCl (Apresoline) 10 mg SLOW IVP Q4H PRN PRN Reason: Systolic BP > 180 Dextrose/Water (D5w) 1,000 mls @ 0 mls/hr IV .Q0M PRN; As Directed PRN Reason: Hypoglycemia Levofloxacin 500 mg/ Device 100 mls @ 100 mls/hr IVPB Q24HR [facility] Last Admin: 11/15/17 20:56 Dose: 100 mls Insulin Human Lispro (Humalog) 0 units SC .MODERATE SLIDING SC PRN PRN Reason: Moderate Correctional Scale Last Admin: 11/14/17 11:41 Dose: 10 unit Insulin Human Lispro (Humalog) 0 units SC .BEDTIME SLIDING SC PRN PRN Reason: Bedtime Correctional Scale Last Admin: 11/14/17 21:58 Dose: 4 unit Loratadine (Claritin) 10 mg PO DAILYPRN PRN PRN Reason: Sinus Symptoms Losartan Potassium (Cozaar) 100 mg PO [facility] Last Admin: 11/15/17 20:57 Dose: 100 mg Nitroglycerin (Nitrostat) 0.4 mg SL Q5MIN PRN PRN Reason: Chest Pain Nitroglycerin (Nitrostat) 0.4 mg SL Q5MIN PRN PRN Reason: Chest Pain Ondansetron HCl (Zofran) 4 mg IVP Q6H PRN PRN Reason: Nausea/Vomiting Senna (Senokot) 2 tab PO HSPRN PRN PRN Reason: Constipation Senna (Senokot) 2 tab PO HSPRN PRN PRN Reason: Constipation Sodium Chloride (Flush - Normal Saline) 10 ml IVF Q12HR [facility] Last Admin: 11/16/17 09:07 Dose: Not Given Sodium Chloride (Flush - Normal Saline) 10 ml IVF PRN PRN PRN Reason: Saline Flush Tramadol HCl (Ultram) 50 mg PO Q4H PRN PRN Reason: Moderate Pain (4-6) Tramadol HCl (Ultram) 50 mg PO Q6H PRN PRN Reason: Moderate Pain (4-6)
[2017-11-16 11:42] LABS: Cardiac Risk 5.8 (Less than 4.5)
[2017-11-16 13:54] VITALS: BP 153/76; TEMP 98.1
--- NOTE | 2017-11-16 15:53 | DIS ---
DATE OF ADMISSION: 11/12/2017 DATE OF DISCHARGE: 11/16/2017 DISCHARGE DISPOSITION: To home. PRIMARY DISCHARGE DIAGNOSES: Severe aortic stenosis, severe multiple vessel coronary artery disease requiring coronary artery bypass grafting, congestive heart failure exacerbation, new onset with ejection fraction of 20% and systolic dysfunction. SECONDARY DISCHARGE DIAGNOSES: Diabetes mellitus type 2, prior history of coronary artery disease, hypertension. PROCEDURES DONE DURING HOSPITALIZATION: Echo with 2D Doppler done showed an EF of 15%-20%. There was grade III/III diastolic dysfunction. LV was dilated, moderately dilated left atrium. Aortic valve area was 0.5 cm2 with max velocity of 2.6 meters per square and mean gradient of 17 mmHg, moderate tricuspid regurgitation as well. Cardiac catheterization done showed severe multivessel disease, severe aortic stenosis with aortic valve area of 0.78 cm2. Respiratory virus panel PCR was negative. Hemoglobin and hematocrit 14 and 44 , platelet count 248, white count of 9.7, total cholesterol 204, triglycerides 126, LDL 144, and HDL 35. BNP 1594. TSH 0.06 and CK-MB 4.2. DISCHARGE MEDICATIONS: Aspirin 325 mg p.o. daily, Coreg 3.125 mg p.o. twice daily, glipizide 5 mg p.o. daily, Cozaar 100 mg p.o. bedtime, Crestor 20 mg p.o. daily. ALLERGIES: No known drug allergies. INPATIENT CONSULTS: Dr. Patterson for Cardiology, Dr. Crocker for Cardiothoracic Surgery. BRIEF COURSE DURING HOSPITALIZATION: Patient initially came to ER with complaints of shortness of breath. He had complained of cough, it was mostly dry with viral symptoms of myalgias as well. His initial BNP was elevated along with indeterminate troponins. Patient was admitted to telemetry for acute congestive heart failure exacerbation, which is a new onset. His echo later revealed EF of 15%-20%. Cardiology consultation with Dr. Patterson was requested. Echo also revealed severe aortic stenosis. He has had cardiac catheterization done which showed multiple vessel disease and Cardiothoracic Surgery consultation with Dr. Crocker was requested. The patient was a poor candidate for surgery per Dr. Crocker. He wanted him to be medically managed for another 2-3 weeks and see if he gets better clinically. Also, Dr. Patterson is exploring other options including TAVR/valvuloplasty/CABG in a higher level center. He will discuss all these options with patient in the coming weeks. He has been cleared for discharge by Dr. Patterson today. Please see a face to face documentation for the day of discharge in [facility]. NEFTALI
== END 2017-11-16 15:17 | disposition home health service (06) | DRG 286 ==
LOC: ERS 14:30 → 2NO 20:10
PROVIDERS: ADMIT Internal Medicine; ATTEND Internal Medicine
PROC: 4A023N7 Measurement of Cardiac Sampling and Pressure, Left Heart, Percutaneous Approach (ICD-10-PCS; principal; 2017-11-15)
PROC: B2111ZZ Fluoroscopy of Multiple Coronary Arteries using Low Osmolar Contrast (ICD-10-PCS; 2017-11-15)
PROC: B2151ZZ Fluoroscopy of Left Heart using Low Osmolar Contrast (ICD-10-PCS; 2017-11-15)
DX: I35.0 Nonrheumatic aortic (valve) stenosis (principal); I50.23 Acute on chronic systolic (congestive) heart failure; I42.9 Cardiomyopathy, unspecified; E11.9 Type 2 diabetes mellitus without complications; I25.5 Ischemic cardiomyopathy; I25.10 Atherosclerotic heart disease of native coronary artery without angina pectoris; Z87.891 Personal history of nicotine dependence; I16.0 Hypertensive urgency; I11.0 Hypertensive heart disease with heart failure; Z95.5 Presence of coronary angioplasty implant and graft; I25.2 Old myocardial infarction; I77.9 Disorder of arteries and arterioles, unspecified; R06.02 Shortness of breath
CPT/HCPCS: 36415; 36416; 71045; 71046; 76942; 80048; 80053; 80061; 82550; 82553; 83036; 83880; 84484; 85025; 87633; 87798; 87804; 90471; 90670; 90682; 93005; 93306; 93460; 93798; 96374; 99152; A4216; C1769; G0008; G0009; J0360; J1644; J1650; J1940; J1956; J2001; J2250; J3010; J7050; Q2036

== ENCOUNTER 2017-11-22 21:07 | Inpatient (IN) | payer MEDICARE ==
[2017-11-22 21:34] LABS: #Eosinphils 0.1 thou/uL (0.0-0.7); #Lymphocytes 0.9 thou/uL (1.20-3.40); #Monocytes 0.5 thou/uL (0.11-0.59); #Neutrophils 4.8 thou/uL (1.40-6.50); %Basophils 0.1 % (0.0-1.0); %Eosinophils 2.3 % (0.0-10.0); %Lymphocytes 13.8 % (21.0-51.0); %Monocytes 8.4 % (0.0-10.0); %Neutrophils 75.5 % (42.0-75.0); Hemoglobin 14.7 g/dL (14.0-18.0); Mean Corpuscular HGB CONC 33.9 g/dL (32.0-36.0); Mean Corpuscular Volume 94.3 fl (80.0-94.0); Platelet Count 184 thou/uL (130-400); RBC Distribution Width 12.9 % (11.5-14.5); Red Blood Cell (RBC) Count 4.58 mill/uL (4.70-6.10); White Blood Cell (WBC) Count 6.3 thou/uL (4.8-10.8)
--- NOTE | 2017-11-22 21:53 | RAD ---
PORTABLE UPRIGHT FRONTAL CHEST RADIOGRAPH: Date: 11-22-17 Comparison: 11-12-17 History: Shortness of breath. FINDINGS: Heart and mediastinal contours are unremarkable. No pneumothorax or pleural fluid. No focal consolida tion or alveolar edema. IMPRESSION: No acute findings. POS: [facility]
[2017-11-22 21:55] LABS: ALT (SGPT) 49 U/L (8-55); AST (SGOT) 34 U/L (5-34); Albumin 3.7 g/dL (3.4-4.8); Alkaline Phosphatase 111 U/L (40-150); Anion Gap 11 mmol/L (10-20); BUN (Urea Nitrogen) 19 mg/dL (8.4-25.7); Bilirubin, Total 0.6 mg/dL (0.2-1.2); Calc. Creatinine Clearance 0 mL/min (70-130); Calcium 9.3 mg/dL (7.8-10.44); Carbon Dioxide 26 mmol/L (23-31); Chloride 106 mmol/L (98-107); Estimated GFR-MDRD 76; Globulin 3.1 g/dL (2.4-3.5); Glucose 237 mg/dL (83-110); Protein, Total 6.8 g/dL (5.8-8.1); Sodium 139 mmol/L (136-145)
[2017-11-22 21:59] LABS: CKMB 4.1 ng/mL (0-6.6)
[2017-11-22 22:17] LABS: Troponin I 0.967 ng/mL (< 0.028)
[2017-11-22] MEDS ORDERED: Aspirin 325 MG TAB ONE (22:35)
[2017-11-23 01:03] LABS: CKMB 3.6 ng/mL (0-6.6)
[2017-11-23 01:08] LABS: Troponin I 1.069 ng/mL (< 0.028)
[2017-11-23] MEDS ORDERED: HYDROcodone/Acetaminophen 5/325 mg Tablet PO PRN (02:31)
[2017-11-23] MEDS ORDERED: Losartan 25 MG TAB PO SCH (02:31)
[2017-11-23] MEDS ORDERED: Dextrose 50% Abboject 50 ML SYRINGE SLOW IVP PRN (02:31)
[2017-11-23] MEDS ORDERED: Enoxaparin Sodium 60 MG/0.6 ML SYRINGE SC SCH (02:31)
[2017-11-23] MEDS ORDERED: Dextrose 5% in Water 1,000 ML IV PRN (02:31)
[2017-11-23] MEDS ORDERED: Ondansetron ODT 4 MG TAB PO PRN (02:31)
[2017-11-23] MEDS ORDERED: Labetalol HCl 100 MG/20 ML VIAL SLOW IVP PRN (02:31)
[2017-11-23] MEDS ORDERED: Enoxaparin Sodium 80 MG/0.8 ML SYRINGE SC SCH (02:45)
[2017-11-23] MEDS: Nitroglycerin 2% Ointment 1 INCH/1 GM Packet TOP SCH ×3 (02:49→19:42)
[2017-11-23 03:11] LABS: #Eosinphils 0.1 thou/uL (0.0-0.7); #Lymphocytes 1.1 thou/uL (1.20-3.40); #Monocytes 0.5 thou/uL (0.11-0.59); #Neutrophils 4.5 thou/uL (1.40-6.50); %Basophils 0.7 % (0.0-1.0); %Eosinophils 1.8 % (0.0-10.0); %Lymphocytes 17.4 % (21.0-51.0); Hemoglobin 13.6 g/dL (14.0-18.0); Mean Corpuscular HGB CONC 34.9 g/dL (32.0-36.0); Mean Corpuscular Hemoglobin 32.8 pg (27.0-31.0); Mean Platelet Volume 8.2 fL (7.4-10.4); Platelet Count 168 thou/uL (130-400); RBC Distribution Width 12.9 % (11.5-14.5); Red Blood Cell (RBC) Count 4.16 mill/uL (4.70-6.10); White Blood Cell (WBC) Count 6.3 thou/uL (4.8-10.8)
[2017-11-23 03:12] LABS: CKMB 3.6 ng/mL (0-6.6)
[2017-11-23 03:18] LABS: Troponin I 1.172 ng/mL (< 0.028)
[2017-11-23 03:19] LABS: Chloride 108 mmol/L (98-107); Potassium 3.9 mmol/L (3.5-5.1); Sodium 136 mmol/L (136-145)
[2017-11-23 03:20] LABS: Anion Gap 9 mmol/L (10-20); BUN (Urea Nitrogen) 20 mg/dL (8.4-25.7); Calc. Creatinine Clearance 82 mL/min (70-130); Calcium 8.8 mg/dL (7.8-10.44); Carbon Dioxide 23 mmol/L (23-31); Estimated GFR-MDRD Greater than 90; Glucose 214 mg/dL (83-110); Magnesium 2.1 mg/dL (1.6-2.6)
[2017-11-23 06:11] VITALS: BMI 28.8
--- NOTE | 2017-11-23 06:53 | HP ---
DATE OF ADMISSION: 11/23/2017 TIME OF SERVICE: 01:30 PRIMARY CARE PHYSICIAN: Radha Alfredo, Nurse Practitioner. CHIEF COMPLAINT: Shortness of breath. HISTORY OF PRESENT ILLNESS: Mr. Clinton is a 77-year-old white male with history of hypertension, diab etes, severe aortic stenosis and diffuse coronary artery disease. The patient was actually admitted here about a week ago. He was found to have severe multivessel disease. Dr. Crocker from Cardiothorac ic Surgery was consulted and felt the patient could benefit from BiPAP. It was not stable to do bypa ss surgery and it was not stable to undergo. He recommended tuning him up for 2-3 weeks and then ree valuating. The patient had acute onset of shortness of breath about 1800 hours on 11/22. He denied chest pain an d no lower extremity edema. Last echocardiogram in 11/13/2017 showed an EF of 15%-20%, grade III/III diastolic dysfunction, moderate to severe areas with an aortic valve area of 0.5 cm2. Workup in the emergency department revealed troponin of 0.967, BNP of 1973 and the remainder of his l abs looked fairly normal. We were subsequently called for admission. PAST MEDICAL HISTORY: 1. Hypertension. 2. Diabetes mellitus type 2. 3. Severe aortic stenosis. 4. Severe multivessel coronary artery disease. 5. Hyperlipidemia. PAST SURGICAL HISTORY: Carotid stent x2. HOME MEDICATIONS: 1. Glipizide 5 mg p.o. daily. 2. Rosuvastatin 20 mg p.o. at bedtime. 3. Cozaar 100 mg p.o. at bedtime. 4. Coreg 3.125 mg p.o. b.i.d. 5. Aspirin 325 mg daily. ALLERGIES: No known drug allergies. FAMILY HISTORY: Negative for clotting or bleeding disorder, no immune dysfunction, no premature shamika nary artery disease. SOCIAL HISTORY: Negative for habits x3. REVIEW OF SYSTEMS: A 10-point review of systems was performed and was negative for all systems excep t stated as per HPI. PHYSICAL EXAMINATION: VITAL SIGNS: Temperature 96.6, pulse 87, blood pressure 169/73, respiratory rate 20, satting 87% on room air, 97% on room air in our ER. GENERAL: He is awake. He is alert. He is oriented x3. Elderly white male, appears to be in no acu te distress. HEENT: Normocephalic, atraumatic. Pupils are equal and reactive to light bilaterally. Mucous membr anes are moist. No visible lesions, no thrush. NECK: Supple. There is no lymphadenopathy, JVD or thyromegaly. He has slightly delayed carotid ups trokes. I do not hear any bruits, but I do hear referred murmurs from his chest. LUNGS: Clear to auscultation bilaterally. He has no wheezes, no rales, no rhonchi. No prolonged ex piratory phase. CARDIOVASCULAR: Normal S1 and S2. No S3, S4. He has 4/6 systolic ejection murmur in the right uppe r sternal border radiating to the carotids and the apex. ABDOMEN: Soft, it is nontender, nondistended, it is obese. He has no rebound, rigidity or guarding. There is normoactive bowel sounds present in all 4 quadrants. EXTREMITIES: Show no cyanosis, no clubbing. I do not appreciate any edema. He has 1+ dorsalis pedi s and nonpalpable posterior tibial pulse bilaterally. SKIN: Warm, moist and well perfused. He has no other rashes or lesions. NEUROLOGIC: Cranial nerves II through XII are grossly intact. He has 5/5 strength in all 4 of his e xtremities. He has no focal deficits. He has normal speech. MUSCULOSKELETAL: His large joints are uninflamed. He has no palpable effusions. LABORATORY DATA: Sodium 139, potassium 4.0, chloride 106, bicarbonate 26, BUN 19, creatinine 0.96, g lucose of 237 and calcium of 9.3. Liver function are completely within normal limits. CBC showed a white count of 6.3, hemoglobin 14.7, hematocrit of 43.2, platelet count is 184,000. BNP was elevated 1973.8. CK-MB was 4.1, decrease of 3.6. Troponin I was 0.967, increasing to 1.069. RADIOGRAPHIC STUDIES: Chest x-ray that showed no acute cardiopulmonary disease. ASSESSMENT AND PLAN: 1. Non-ST elevation myocardial infarction: The patient's blood pressure was elevated. I suspect th at the elevation of blood pressure, known coronary artery disease, and severe aortic stenosis played a part. I placed him on Lovenox 1 mg/kg IV q.12 hours and I have consulted Dr. Patterson for his rec ommendations. 2. Essential hypertension. Blood pressure is elevated. We will place him on his nitro paste and ge t his blood pressure down to decrease afterload. 3. Diabetes mellitus type 2. Blood sugar is elevated. He is going to be n.p.o. for right now, so mikaela charles will hold his glipizide. We will place him on sliding scale insulin for correction. 4. Severe aortic stenosis: Echo just done. Repeat not ordered. 5. Hyperlipidemia, on Rosuvastatin. We will continue here.
[2017-11-23] MEDS: Aspirin 325 mg Enteric Coated Tablet PO SCH (08:53)
[2017-11-23] MEDS: Famotidine/PF 20 mg/2ml Vial SLOW IVP SCH ×2 (08:53→22:37)
[2017-11-23] MEDS: Rosuvastatin 20 MG TAB PO SCH (08:53)
[2017-11-23] MEDS: Carvedilol 3.125 MG TAB PO SCH ×2 (08:54→22:13)
[2017-11-23 10:57] LABS: CKMB 3.7 ng/mL (0-6.6)
[2017-11-23 11:13] LABS: Troponin I 1.112 ng/mL (< 0.028)
--- NOTE | 2017-11-23 12:01 | PDOC.PN ---
- Subjective Encounter Start Date: 11/23/17 Encounter Start Time: 11:59 Pt admitted after midnight, denies chest pain, but had an episode of dyspnea this evening - Objective Resuscitation Status: Resuscitation Status FULL:Full Resuscitation Vital Signs & Weight: Vital Signs (12 hours) Temp Pulse Resp BP Pulse Ox 11/23/17 08:47 98 F 90 18 169/98 H 96 11/23/17 04:00 98.5 F 81 98 H 161/87 H 98 Weight Weight 177 lb 11.2 oz I&O: 11/22/17 11/23/17 11/24/17 06:59 06:59 06:59 Intake Total 50 Output Total 200 Balance -150 Result Diagrams: 11/23/17 12:43 11/23/17 12:43 Additional Labs: Accuchecks 11/23/17 06:02 POC Glucose 187 H Phys Exam - Physical Examination Constitutional: NAD HEENT: moist MMs Neck: no nodes, no JVD Respiratory: no wheezing, no rales, no rhonchi Cardiovascular: RRR, no significant murmur Gastrointestinal: soft, non-tender Musculoskeletal: no edema Neurological: non-focal Psychiatric: normal affect Dx/Plan - Plan * . Pt is 77 yrs old male now admitted to hospital due to chest pain 1. NSTEMI 2. HTN 3. H/O HPL 4. Pain plan: continue lovenox cardio consulted. possible cath Monitor bp closely prn pain meds case d/w pt & rn
[2017-11-23 12:58] LABS: #Eosinphils 0.1 thou/uL (0.0-0.7); #Lymphocytes 0.8 thou/uL (1.20-3.40); #Monocytes 0.6 thou/uL (0.11-0.59); #Neutrophils 5.4 thou/uL (1.40-6.50); %Basophils 0.4 % (0.0-1.0); %Eosinophils 1.8 % (0.0-10.0); %Lymphocytes 11.3 % (21.0-51.0); %Monocytes 8.7 % (0.0-10.0); %Neutrophils 77.8 % (42.0-75.0); Hemoglobin 13.6 g/dL (14.0-18.0); Mean Corpuscular HGB CONC 33.7 g/dL (32.0-36.0); Mean Corpuscular Hemoglobin 31.9 pg (27.0-31.0); Mean Corpuscular Volume 94.7 fl (80.0-94.0); Platelet Count 171 thou/uL (130-400); RBC Distribution Width 12.9 % (11.5-14.5); Red Blood Cell (RBC) Count 4.26 mill/uL (4.70-6.10)
[2017-11-23] MEDS ORDERED: Sodium Chloride 0.9% 1,000 ML IV SCH (13:15)
[2017-11-23 13:25] LABS: Anion Gap 11 mmol/L (10-20); BUN (Urea Nitrogen) 17 mg/dL (8.4-25.7); Calc. Creatinine Clearance 85 mL/min (70-130); Calcium 8.7 mg/dL (7.8-10.44); Carbon Dioxide 22 mmol/L (23-31); Chloride 107 mmol/L (98-107); Estimated GFR-MDRD Greater than 90; Glucose 230 mg/dL (83-110); Sodium 136 mmol/L (136-145)
[2017-11-23] MEDS: Enoxaparin Sodium 80 MG/0.8 ML SYRINGE SC SCH ×2 (16:12→22:14)
--- NOTE | 2017-11-23 17:16 | CON ---
DATE OF CONSULTATION: 11/23/2017 REASON FOR CONSULTATION: Shortness of breath. HISTORY OF PRESENT ILLNESS: Mr. Clinton is a 77-year-old gentleman who I have seen and evaluated in th e past. He underwent coronary angiography over the last several weeks. He was found to have severe multivessel disease including a 90% of the OM branch, 70% circumflex artery, and 100% of the right co ronary artery. He also had cardiomyopathy and severe aortic stenosis. He was seen and evaluated by CV Surgery and recommend medical therapy prior to surgery. From a CV standpoint, Mr. Clinton states he had shortness of breath that developed suddenly at 4:00 p.m . He had difficulty with ambulation. He then proceeded to the emergency room with the above. No ch est pain or pressure noted. PAST MEDICAL HISTORY: Hypertension, diabetes mellitus, CAD, severe aortic stenosis, hyperlipidemia. MEDICATIONS: Crestor, Cozaar, Coreg, aspirin, glipizide. ALLERGIES: None. FAMILY HISTORY: Negative for CAD. SOCIAL HISTORY: No current tobacco or alcohol use. REVIEW OF SYSTEMS: Ten point review of systems is reviewed and as above, otherwise negative. PHYSICAL EXAMINATION: VITAL SIGNS: Blood pressure 136/74, pulse 79, temperature 98.1. GENERAL: Patient is a pleasant male/female who is in no acute distress. The patient appears his sta jax age. NEUROLOGIC: The patient is alert and oriented times 3 with no focal neurologic deficits. HEENT: Sclerae without icterus. Mouth has moist mucous membranes with normal pallor. NECK: No JVD. Carotid upstroke brisk. No bruits bilaterally. LUNGS: Clear to auscultation with unlabored respirations. BACK: No scoliosis or kyphosis. CARDIAC: 2/6 systolic ejection murmur. ABDOMEN: Soft, nontender, nondistended. No peritoneal signs present. No hepatosplenomegaly. No ab normal striae. EXTREMITIES: 2+ femoral and 2+ dorsalis pedis pulses. No cyanosis, clubbing, or edema. SKIN: No gross abnormalities. IMPRESSION: 1. Shortness of breath. 2. Elevated troponin. 3. Severe coronary artery disease. 4. Severe aortic stenosis. RECOMMENDATIONS: Mr. Clinton's symptoms likely related to severe underlying coronary artery disease in addition to severe aortic stenosis. We will leave the discretion for recommendation by Dr. Galileo smith. He has received Lasix with improvement. He states he continues to have shortness of breath wit h little ambulation. He is currently on losartan in addition to nitroglycerin.
[2017-11-23] MEDS: HumaLOG 300 UNITS/3 ML VIAL SC PRN ×2 (17:34→23:22)
[2017-11-23 20:08] LABS: CKMB 3.4 ng/mL (0-6.6)
[2017-11-23 20:10] LABS: Critical Call Chem Troponin I RESULT DECREASING; Troponin I 0.646 ng/mL (< 0.028)
[2017-11-23] MEDS: Losartan 25 MG TAB PO SCH (22:13)
[2017-11-24] MEDS: Nitroglycerin 2% Ointment 1 INCH/1 GM Packet TOP SCH ×3 (04:59→18:07)
[2017-11-24] MEDS: Acetaminophen 325 MG TAB PO PRN ×2 (05:02→20:55)
[2017-11-24 06:09] LABS: #Eosinphils 0.2 thou/uL (0.0-0.7); #Lymphocytes 1.1 thou/uL (1.20-3.40); #Monocytes 0.7 thou/uL (0.11-0.59); %Basophils 0.4 % (0.0-1.0); %Eosinophils 2.4 % (0.0-10.0); %Lymphocytes 15.5 % (21.0-51.0); %Monocytes 9.7 % (0.0-10.0); Hemoglobin 13.1 g/dL (14.0-18.0); Mean Corpuscular HGB CONC 33.1 g/dL (32.0-36.0); Mean Corpuscular Hemoglobin 31.3 pg (27.0-31.0); Mean Corpuscular Volume 94.6 fl (80.0-94.0); Platelet Count 187 thou/uL (130-400); Red Blood Cell (RBC) Count 4.17 mill/uL (4.70-6.10); White Blood Cell (WBC) Count 6.9 thou/uL (4.8-10.8)
[2017-11-24 06:17] LABS: Anion Gap 9 mmol/L (10-20); BUN (Urea Nitrogen) 17 mg/dL (8.4-25.7); Calc. Creatinine Clearance 73 mL/min (70-130); Calcium 8.7 mg/dL (7.8-10.44); Carbon Dioxide 24 mmol/L (23-31); Chloride 107 mmol/L (98-107); Estimated GFR-MDRD 78; Glucose 120 mg/dL (83-110); Potassium 3.4 mmol/L (3.5-5.1); Sodium 137 mmol/L (136-145)
[2017-11-24] MEDS ORDERED: Potassium Chloride 20 MEQ TAB PO SCH (08:30)
[2017-11-24] MEDS: Enoxaparin Sodium 80 MG/0.8 ML SYRINGE SC SCH ×2 (09:25→20:56)
[2017-11-24] MEDS: Carvedilol 3.125 MG TAB PO SCH ×2 (09:25→20:55)
[2017-11-24] MEDS: Aspirin 325 mg Enteric Coated Tablet PO SCH (09:25)
[2017-11-24] MEDS: Rosuvastatin 20 MG TAB PO SCH (09:25)
[2017-11-24] MEDS: Famotidine/PF 20 mg/2ml Vial SLOW IVP SCH (09:25)
[2017-11-24] MEDS: HumaLOG 300 UNITS/3 ML VIAL SC PRN ×3 (11:53→20:56)
--- NOTE | 2017-11-24 13:28 | PDOC.PN ---
- Subjective Encounter Start Date: 11/24/17 Encounter Start Time: 13:31 Subjective: No new complaints. he is chest pain free and SOB markedly improved. -: No acute events overnight. - Objective Resuscitation Status: Resuscitation Status FULL:Full Resuscitation MAR Reviewed: Yes Vital Signs & Weight: Vital Signs (12 hours) Temp Pulse Resp BP BP BP Pulse Ox 11/24/17 11:03 97.2 F L 88 18 169/87 H 98 11/24/17 08:00 97.8 F 80 16 99 11/24/17 07:53 97.8 F 80 16 149/83 H 99 11/24/17 04:23 98.6 F 94 16 138/74 98 11/24/17 02:57 97 Weight Weight 176 lb 11.2 oz I&O: 11/23/17 11/24/17 11/25/17 06:59 06:59 06:59 Intake Total 50 372 Output Total 200 700 Balance -150 -328 Result Diagrams: 11/24/17 05:21 11/24/17 05:21 Additional Labs: Accuchecks 11/24/17 11/24/17 11/23/17 11:36 05:27 20:20 POC Glucose 224 H 139 H 324 H 11/23/17 16:37 POC Glucose 273 H Phys Exam - Physical Examination Constitutional: NAD HEENT: PERRLA, moist MMs, sclera anicteric Neck: no JVD, supple, full ROM Respiratory: no wheezing, no rales, no rhonchi, clear to auscultation bilateral Cardiovascular: RRR, no rub + systolic murmur Gastrointestinal: soft, non-tender, no distention, positive bowel sounds Musculoskeletal: pulses present, edema present Neurological: non-focal, moves all 4 limbs Psychiatric: normal affect, A&O x 3 Skin: no rash, normal turgor Dx/Plan (1) NSTEMI (non-ST elevated myocardial infarction) Code(s): I21.4 - NON-ST ELEVATION (NSTEMI) MYOCARDIAL INFARCTION Status: Acute Comment: Stable. Chest pain free, troponin trending down. On therapeutic Lovenox and NTG. Will f/u Dr. Crocker's recs (2) CAD (coronary artery disease) Code(s): I25.10 - ATHSCL HEART DISEASE OF [place] CORONARY ARTERY W/O ANG PCTRS Status: Acute Qualifiers: Coronary Disease-Associated Artery/Lesion type: [place] artery [place] vs. transplanted heart: [place] heart Associated angina: without angina Qualified Code(s): I25.10 - Atherosclerotic heart disease of [place] coronary artery without angina pectoris (3) DM type 2 (diabetes mellitus, type 2) Status: Chronic Qualifiers: Diabetes mellitus complication status: with unspecified complications Diabetes mellitus director digital communications insulin use: without [facility] use Qualified Code( s): E11.8 - Type 2 diabetes mellitus with unspecified complications (4) Carotid arterial disease Code(s): I77.9 - DISORDER OF ARTERIES AND ARTERIOLES, UNSPECIFIED Status: Chronic Qualifiers: Laterality: bilateral Qualified Code(s): I77.9 - Disorder of arteries and arterioles, unspecified Comment: prior h/o stents. Chest pain free. See under NSTEMI for details. (5) HTN (hypertension) Code(s): I10 - ESSENTIAL (PRIMARY) HYPERTENSION Status: Chronic Qualifiers: Hypertension type: essential hypertension Qualified Code(s): I10 - Essential (primary) hypertension Comment: Fair control. Continue home meds. (6) Aortic stenosis, severe Code(s): I35.0 - NONRHEUMATIC AORTIC (VALVE) STENOSIS Status: Acute Plan: Will f/u Dr. Crocker's recs - Plan cont current plan of care, DVT proph w/lovenox * .
[2017-11-24] MEDS ORDERED: Albuterol Sulfate 2.5 mg/3 ml Neb NEB PRN (16:50)
--- NOTE | 2017-11-24 18:31 | CON ---
DATE OF SERVICE: 11/24/2017 SUBJECTIVE: Mr. Clinton states he is feeling better today. Less shortness of breath. He states he sl ept well overnight. OBJECTIVE: VITAL SIGNS: Blood pressure 151/86, pulse 78, temperature 96.6. LUNGS: Clear to auscultation. CARDIAC: Regular rate and rhythm with a 2/6 systolic ejection murmur. ABDOMEN: Soft, nontender, nondistended. EXTREMITIES: 1+ pitting edema. PERTINENT LABORATORY: Hemoglobin 13.1, creatinine 0.94. IMPRESSION: 1. Acute on chronic systolic heart failure. 2. Severe aortic stenosis. 3. Severe three-vessel coronary artery disease. RECOMMENDATIONS: Mr. Clinton continues to improve. I have discussed the case with Dr. Galileo Crocker on timing. Dr. Galileo Crocker will visit with Mr. Clinton today.
[2017-11-24] MEDS: Losartan 25 MG TAB PO SCH (20:55)
[2017-11-24] MEDS: Famotidine 20 MG TAB PO SCH (20:55)
[2017-11-25] MEDS: Nitroglycerin 2% Ointment 1 INCH/1 GM Packet TOP SCH ×3 (02:12→18:01)
[2017-11-25 05:28] LABS: #Eosinphils 0.2 thou/uL (0.0-0.7); #Monocytes 0.6 thou/uL (0.11-0.59); #Neutrophils 3.7 thou/uL (1.40-6.50); %Basophils 0.3 % (0.0-1.0); %Eosinophils 2.8 % (0.0-10.0); %Lymphocytes 17.7 % (21.0-51.0); %Monocytes 10.6 % (0.0-10.0); %Neutrophils 68.7 % (42.0-75.0); Hemoglobin 13.3 g/dL (14.0-18.0); Mean Corpuscular HGB CONC 33.6 g/dL (32.0-36.0); Mean Corpuscular Hemoglobin 31.9 pg (27.0-31.0); Mean Platelet Volume 7.5 fL (7.4-10.4); Platelet Count 182 thou/uL (130-400); RBC Distribution Width 13.2 % (11.5-14.5); Red Blood Cell (RBC) Count 4.17 mill/uL (4.70-6.10); White Blood Cell (WBC) Count 5.4 thou/uL (4.8-10.8)
[2017-11-25 05:34] LABS: Anion Gap 11 mmol/L (10-20); BUN (Urea Nitrogen) 14 mg/dL (8.4-25.7); Calc. Creatinine Clearance 80 mL/min (70-130); Calcium 8.6 mg/dL (7.8-10.44); Carbon Dioxide 24 mmol/L (23-31); Chloride 107 mmol/L (98-107); Estimated GFR-MDRD 86; Glucose 144 mg/dL (83-110); Potassium 3.5 mmol/L (3.5-5.1); Sodium 138 mmol/L (136-145)
[2017-11-25] MEDS: Famotidine 20 MG TAB PO SCH ×2 (08:08→20:58)
[2017-11-25] MEDS: Aspirin 325 mg Enteric Coated Tablet PO SCH (08:08)
[2017-11-25] MEDS: Carvedilol 3.125 MG TAB PO SCH ×2 (08:08→20:58)
[2017-11-25] MEDS: Enoxaparin Sodium 80 MG/0.8 ML SYRINGE SC SCH ×2 (08:08→20:58)
[2017-11-25] MEDS: Rosuvastatin 20 MG TAB PO SCH (08:08)
[2017-11-25] MEDS ORDERED: Furosemide 20 MG TAB PO SCH ×2 (10:35→10:45)
--- NOTE | 2017-11-25 12:25 | PDOC.PN ---
- Subjective Encounter Start Date: 11/25/17 Encounter Start Time: 12:26 Subjective: No new complaints -: No acute events overnight - Objective Resuscitation Status: Resuscitation Status FULL:Full Resuscitation MAR Reviewed: Yes Vital Signs & Weight: Vital Signs (12 hours) Temp Pulse Resp BP BP Pulse Ox 11/25/17 11:39 97.1 F L 94 14 168/82 H 98 11/25/17 08:00 98.2 F 92 16 97 11/25/17 07:55 98.2 F 92 16 160/96 H 97 11/25/17 04:00 98.0 F 84 20 154/83 H 97 Weight Weight 175 lb 12.8 oz I&O: 11/24/17 11/25/17 11/26/17 06:59 06:59 06:59 Intake Total 372 730 Output Total 700 935 Balance -328 -205 Result Diagrams: 11/25/17 05:06 11/25/17 05:06 Additional Labs: Accuchecks 11/25/17 11/24/17 11/24/17 06:10 20:30 16:49 POC Glucose 137 H 233 H 199 H Phys Exam - Physical Examination Constitutional: NAD HEENT: PERRLA, moist MMs, sclera anicteric Neck: supple, full ROM Respiratory: no wheezing, no rales, no rhonchi, clear to auscultation bilateral Cardiovascular: RRR, no rub + systolic murmur Gastrointestinal: soft, non-tender, no distention, positive bowel sounds Musculoskeletal: no edema, pulses present Neurological: non-focal, moves all 4 limbs Psychiatric: normal affect, A&O x 3 Skin: no rash, normal turgor Dx/Plan (1) NSTEMI (non-ST elevated myocardial infarction) Code(s): I21.4 - NON-ST ELEVATION (NSTEMI) MYOCARDIAL INFARCTION Status: Acute Comment: Stable. Chest pain free. On therapeutic Lovenox and NTG. (2) CAD (coronary artery disease) Code(s): I25.10 - ATHSCL HEART DISEASE OF [place] CORONARY ARTERY W/O ANG PCTRS Status: Acute Qualifiers: Coronary Disease-Associated Artery/Lesion type: [place] artery [place] vs. transplanted heart: [place] heart Associated angina: without angina Qualified Code(s): I25.10 - Atherosclerotic heart disease of [place] coronary artery without angina pectoris Plan: As above. (3) DM type 2 (diabetes mellitus, type 2) Status: Chronic Qualifiers: Diabetes mellitus complication status: with unspecified complications Diabetes mellitus long term care pharmacist insulin use: without long term care pharmacist use Qualified Code( s): E11.8 - Type 2 diabetes mellitus with unspecified complications Comment: Controlled and at hospital goal (4) Carotid arterial disease Code(s): I77.9 - DISORDER OF ARTERIES AND ARTERIOLES, UNSPECIFIED Status: Chronic Qualifiers: Laterality: bilateral Qualified Code(s): I77.9 - Disorder of arteries and arterioles, unspecified Comment: prior h/o stents. Chest pain free. See under NSTEMI for details. (5) HTN (hypertension) Code(s): I10 - ESSENTIAL (PRIMARY) HYPERTENSION Status: Chronic Qualifiers: Hypertension type: essential hypertension Qualified Code(s): I10 - Essential (primary) hypertension Comment: Fair control. Continue home meds. (6) Aortic stenosis, severe Code(s): I35.0 - NONRHEUMATIC AORTIC (VALVE) STENOSIS Status: Acute Comment : Symptomatically improved. Dr. Crocker on board, will follow his recs re surgery - Plan cont current plan of care * .
[2017-11-25] MEDS: HumaLOG 300 UNITS/3 ML VIAL SC PRN ×2 (12:46→18:02)
[2017-11-25] MEDS ORDERED: Lidocaine 1% w/Epinephrine 1:200K 30 ML VIAL ONE (14:57)
[2017-11-25] MEDS: Potassium Chloride 20 MEQ TAB PO SCH (16:10)
[2017-11-25] MEDS: Losartan 25 MG TAB PO SCH (20:58)
[2017-11-26] MEDS: Nitroglycerin 2% Ointment 1 INCH/1 GM Packet TOP SCH (03:08)
[2017-11-26] MEDS: Acetaminophen 325 MG TAB PO PRN (03:08)
[2017-11-26 05:17] LABS: #Eosinphils 0.2 thou/uL (0.0-0.7); #Lymphocytes 0.9 thou/uL (1.20-3.40); #Monocytes 0.6 thou/uL (0.11-0.59); #Neutrophils 4.1 thou/uL (1.40-6.50); %Basophils 0.4 % (0.0-1.0); %Eosinophils 2.9 % (0.0-10.0); %Lymphocytes 15.6 % (21.0-51.0); %Neutrophils 71.2 % (42.0-75.0); Hemoglobin 13.5 g/dL (14.0-18.0); Mean Corpuscular HGB CONC 33.9 g/dL (32.0-36.0); Mean Corpuscular Hemoglobin 32.2 pg (27.0-31.0); Mean Corpuscular Volume 94.8 fl (80.0-94.0); Mean Platelet Volume 7.5 fL (7.4-10.4); Platelet Count 199 thou/uL (130-400); RBC Distribution Width 13.3 % (11.5-14.5); Red Blood Cell (RBC) Count 4.19 mill/uL (4.70-6.10); White Blood Cell (WBC) Count 5.7 thou/uL (4.8-10.8)
[2017-11-26 05:37] LABS: Anion Gap 9 mmol/L (10-20); BUN (Urea Nitrogen) 13 mg/dL (8.4-25.7); Calc. Creatinine Clearance 75 mL/min (70-130); Calcium 8.9 mg/dL (7.8-10.44); Carbon Dioxide 25 mmol/L (23-31); Chloride 107 mmol/L (98-107); Estimated GFR-MDRD 81; Glucose 152 mg/dL (83-110); Potassium 4.1 mmol/L (3.5-5.1); Sodium 137 mmol/L (136-145)
[2017-11-26 07:29] VITALS: TEMP 98
[2017-11-26] MEDS ORDERED: glipiZIDE 5 MG TAB PO SCH (07:30)
[2017-11-26] MEDS ORDERED: Carvedilol 3.125 MG TAB PO SCH (07:30)
[2017-11-26] MEDS ORDERED: Spironolactone 25 MG TAB PO SCH (08:00)
[2017-11-26] MEDS: Enoxaparin Sodium 80 MG/0.8 ML SYRINGE SC SCH (08:01)
[2017-11-26] MEDS: Aspirin 325 mg Enteric Coated Tablet PO SCH (08:01)
[2017-11-26] MEDS: Rosuvastatin 20 MG TAB PO SCH (08:02)
[2017-11-26] MEDS: Potassium Chloride 20 MEQ TAB PO SCH (08:02)
[2017-11-26] MEDS: Famotidine 20 MG TAB PO SCH (08:02)
[2017-11-26] MEDS ORDERED: Furosemide 20 MG TAB PO SCH (09:00)
[2017-11-26] MEDS ORDERED: Carvedilol 6.25 MG TAB PO SCH (09:00)
[2017-11-26 10:36] VITALS: BP 151/71
--- NOTE | 2017-11-26 14:22 | PRG ---
DATE OF SERVICE: 11/26/2017 SUBJECTIVE: Mr. Clinton is doing well. He is back to his baseline. OBJECTIVE: VITAL SIGNS: Blood pressure 151/71, pulse 84, temperature 98. LUNGS: Clear to auscultation. CARDIAC: Regular rate and rhythm with a 2/6 systolic ejection murmur. ABDOMEN: Soft, nontender, nondistended. EXTREMITIES: No edema. IMPRESSION: 1. Severe three-vessel disease. 2. Ischemic cardiomyopathy. 3. Severe aortic stenosis. RECOMMENDATIONS: Mr. Clinton states he has been turned down for surgery. I have reached out to Dr. Jann smith on multiple occasions. He has been tied up in a surgery. Mr. Clinton would like to go home. I di d discuss TAVR and stent placement with Mr. Clinton. He is agreeable. At this point, we would recomme nd outpatient workup for the above. It would be okay from my standpoint to discharge home.
--- NOTE | 2017-11-26 14:51 | DIS ---
DATE OF ADMISSION: 11/22/2017 DATE OF DISCHARGE: 11/26/2017 DISCHARGE DIAGNOSES: [id number] myocardial infarction, essential hypertension, severe aortic s tenosis, type 2 diabetes mellitus, coronary artery disease, status post stent. HISTORY OF PRESENT ILLNESS/HOSPITAL COURSE: Mr. Francisco Clinton is a 77-year-old male with a hi story of hypertension, diabetes, severe aortic stenosis, and diffuse CAD. He was admitted to the [facility] about 1 week previously where he was found to have severe multivessel disease. Dr. Crocker from Cardiothoracic Surgery was consulted and felt the patient could benefit from BiPAP. He was not able to do bypass surgery and it was recommended for him to return in 2-3 weeks and then evaluate him. He has sudden onset shortness of breath at about 6:00 p.m. on 11/22/2017. He denied chest pain, lower extremity edema. Last echocardiogram on 11/23/2017 showed an EF of 15%-20%, grade 3-4 diastolic dysf unction with yiaimyky-yw-adwfdo areas with an aortic valve area of 0.5 cm2. Workup in the emergency department revealed troponin 0.967. BNP of 1973 and the remainder of his labs looked fairly normal. He was admitted for an NSTEMI and started on therapeutic Lovenox. Cardiovascular surgery and Cardiology were consulted. He improved while on admission and troponin tr ended downwards. Cardiology reviewed him and he was started on p.o. furosemide and spironolactone. He was reviewed by Cardiovascular Surgery and we will see the patient as an outpatient for possible s urgical intervention. He was stable at discharge. PHYSICAL EXAMINATION: VITAL SIGNS: Temperature 98 degree Fahrenheit, pulse 84, respirations 14, oxygen saturation 97% on r oom air, blood pressure 151/71. GENERAL: Not in acute distress, sitting comfortably in bed. HEENT: PERRLA, EOMI. Moist mucous membranes. Sclerae are anicteric, not pale. NECK: Supple, with full range of movement. CARDIOVASCULAR: Regular rate and rhythm. No rubs or gallops. Plus systolic murmur. GASTROINTESTINAL: Soft, nontender, nondistended with positive bowel sounds. MUSCULOSKELETAL: Trace pedal edema bilaterally. Pulses present. NEUROLOGIC: Alert and oriented to time, place, and person. No focal deficits. Moves all limbs spon taneously. PSYCHIATRIC: Normal mood and affect. SKIN: Warm and well perfused. No rashes or lesions. LABORATORY DATA: WBC 5.7, hemoglobin 13.5, platelets 199. PROCEDURES: Sodium 137, potassium 4.1, chloride 107, carbon dioxide 25, anion gap 9, BUN 13, creatin ine 0.91, glucose 137, calcium 8.9. IMAGING: Chest x-ray done on 11/22/2017 showed no acute findings. CONSULTATIONS: Cardiology, Cardiovascular Surgery. PROCEDURES: None. DIET: Heart healthy, diabetic with low sodium. MEDICATIONS: At discharge, carvedilol 6.25 mg b.i.d., furosemide 20 mg daily, spironolactone 12.5 mg daily, aspirin 325 mg daily, glipizide 5 mg daily before food, losartan 100 mg at bedtime, lovastati n 20 mg daily. CONDITION ON DISCHARGE: Stable and improved. ACTIVITIES: Resume as tolerated. Follow up with Cardiovascular Surgery after discharge for possible surgical intervention. He is to also follow up with his primary care physician within 1 week of dis charge. Health care goals as above. Discharge time 65 minutes including chart review and documentation.
== END 2017-11-26 11:09 | disposition home or self-care (01) | DRG 280 ==
LOC: ERS 21:07 → 2NO 22:39
PROVIDERS: ADMIT Internal Medicine Infectious Disease; ATTEND Internal Medicine Infectious Disease
DX: I21.4 Non-ST elevation (NSTEMI) myocardial infarction (principal); I50.23 Acute on chronic systolic (congestive) heart failure; E11.9 Type 2 diabetes mellitus without complications; I35.0 Nonrheumatic aortic (valve) stenosis; I11.0 Hypertensive heart disease with heart failure; E78.5 Hyperlipidemia, unspecified; I25.10 Atherosclerotic heart disease of native coronary artery without angina pectoris; I25.5 Ischemic cardiomyopathy; Z79.84 Long term (current) use of oral hypoglycemic drugs; Z79.82 Long term (current) use of aspirin; Z79.899 Other long term (current) drug therapy
CPT/HCPCS: 36415; 36416; 71045; 80048; 80053; 82553; 83735; 83880; 84484; 85025; 93005; 93798; 94640; A4216; J1650; J7611; S0028

== ENCOUNTER 2017-12-25 00:24 | Inpatient (IN) | payer MEDICARE ==
[2017-12-25 01:20] LABS: #Eosinphils 0.1 thou/uL (0.0-0.7); #Lymphocytes 0.7 thou/uL (1.20-3.40); #Monocytes 0.5 thou/uL (0.11-0.59); #Neutrophils 4.7 thou/uL (1.40-6.50); %Basophils 0.3 % (0.0-1.0); %Eosinophils 1.3 % (0.0-10.0); %Lymphocytes 11.9 % (21.0-51.0); %Monocytes 8.8 % (0.0-10.0); %Neutrophils 77.6 % (42.0-75.0); Hemoglobin 13.8 g/dL (14.0-18.0); Mean Corpuscular HGB CONC 33.3 g/dL (32.0-36.0); Mean Corpuscular Hemoglobin 31.7 pg (27.0-31.0); Mean Corpuscular Volume 95.2 fl (80.0-94.0); Mean Platelet Volume 7.5 fL (7.4-10.4); Platelet Count 180 thou/uL (130-400); RBC Distribution Width 13.8 % (11.5-14.5); Red Blood Cell (RBC) Count 4.35 mill/uL (4.70-6.10); White Blood Cell (WBC) Count 6.1 thou/uL (4.8-10.8)
[2017-12-25] MEDS ORDERED: Furosemide 40 MG/4 ML VIAL ONE (01:21)
[2017-12-25 01:26] LABS: INR-International Normal Ratio 1.3; Prothrombin Time 15.9 SEC (12.0-14.7)
[2017-12-25 01:27] LABS: PTT 33.3 SEC (22.9-36.1)
[2017-12-25 01:44] LABS: ALT (SGPT) 56 U/L (8-55); AST (SGOT) 31 U/L (5-34); Albumin 3.9 g/dL (3.4-4.8); Alkaline Phosphatase 122 U/L (40-150); Anion Gap 12 mmol/L (10-20); BUN (Urea Nitrogen) 17 mg/dL (8.4-25.7); Bilirubin, Total 0.7 mg/dL (0.2-1.2); Calc. Creatinine Clearance 0 mL/min (70-130); Calcium 9.2 mg/dL (7.8-10.44); Carbon Dioxide 23 mmol/L (23-31); Chloride 103 mmol/L (98-107); Estimated GFR-MDRD 68; Globulin 2.5 g/dL (2.4-3.5); Glucose 292 mg/dL (83-110); Potassium 3.9 mmol/L (3.5-5.1); Protein, Total 6.4 g/dL (5.8-8.1); Sodium 134 mmol/L (136-145)
[2017-12-25 01:45] LABS: CKMB 2.5 ng/mL (0-6.6); Troponin I 0.024 ng/mL (< 0.028)
[2017-12-25 02:14] LABS: Bilirubin Negative (Negative); Blood, Urine Trace (Negative); Clarity CLEAR (Clear); Glucose, Urine (Dipstick) 500 mg/dL (Negative); Leukocyte Negative (Negative); Nitrite Negative (Negative); Protein, Urine (Dipstick) 300 mg/dL (Neg-Trace); Specific Gravity, Urine 1.018 (1.002-1.036)
[2017-12-25 02:16] LABS: Bacteria/HPF None Seen HPF (None Seen); Hyaline Casts/LPF 0-3 HYALINE CAST LPF (0-3 Hyaline); Pathc Cast-AUWi Flag 0.29 (0-2.49); RBC/HPF 0-3 HPF (0-3); Squamous Epithelial 0-3 HPF (0-3); WBC/HPF 0-3 HPF (0-3)
[2017-12-25 02:17] LABS: CK (CPK) 81 U/L (30-200); Lipase 51 U/L (8-78)
[2017-12-25 04:32] LABS: Troponin I 0.027 ng/mL (< 0.028)
[2017-12-25] MEDS ORDERED: Ondansetron HCl/PF 4 MG/2 ML Vial IVP PRN ×2 (05:08→07:39)
[2017-12-25] MEDS ORDERED: Ondansetron ODT 4 MG TAB SL PRN (05:08)
[2017-12-25 05:31] VITALS: BMI 29.3
[2017-12-25] MEDS: Furosemide 40 MG/4 ML VIAL SLOW IVP SCH ×6 (05:36→14:54)
[2017-12-25 07:22] LABS: Troponin I 0.028 ng/mL (< 0.028)
[2017-12-25] MEDS ORDERED: Senokot 8.6 MG TAB PO PRN (07:39)
[2017-12-25] MEDS ORDERED: Mag-Al 1200 mg/1200 mg/30 ML UDCUP PO PRN (07:39)
[2017-12-25] MEDS ORDERED: Calcium Carbonate 500 MG ChewTAB PO PRN (07:39)
[2017-12-25] MEDS ORDERED: traMADol HCl 50 MG TAB PO PRN (07:39)
[2017-12-25] MEDS ORDERED: hydrALAZINE 20 MG/ML VIAL SLOW IVP PRN (07:39)
[2017-12-25] MEDS ORDERED: Dextrose 5% in Water 1,000 ML IV PRN (07:39)
[2017-12-25] MEDS ORDERED: HumaLOG 300 UNITS/3 ML VIAL SC PRN (07:39)
[2017-12-25] MEDS ORDERED: cloNIDine 0.1 MG TAB PO PRN (07:39)
[2017-12-25] MEDS ORDERED: Bisacodyl 5 MG TAB PO PRN (07:39)
[2017-12-25] MEDS ORDERED: Dextrose 50% Abboject 50 ML SYRINGE SLOW IVP PRN (07:39)
[2017-12-25] MEDS ORDERED: Loratadine 10 MG TAB PO PRN (07:39)
[2017-12-25] MEDS ORDERED: Diabetic Tussin 200 MG/10 ML UDCUP PO PRN (07:39)
[2017-12-25] MEDS ORDERED: Nitroglycerin 0.4 MG TAB (25 Tab Bottle) SL PRN (07:39)
[2017-12-25] MEDS ORDERED: Acetaminophen 325 MG TAB PO PRN (07:39)
[2017-12-25] MEDS ORDERED: Benzonatate 100 MG CAP PO PRN (07:39)
[2017-12-25] MEDS ORDERED: Metolazone 5 MG TAB PO SCH (08:30)
[2017-12-25] MEDS ORDERED: Aspirin 325 mg Enteric Coated Tablet PO SCH (09:00)
[2017-12-25] MEDS: Rosuvastatin 20 MG TAB PO SCH (09:24)
[2017-12-25] MEDS: Aspirin 325 mg Enteric Coated Tablet PO SCH (09:24)
[2017-12-25] MEDS: Famotidine 20 MG TAB PO SCH ×2 (09:24→20:16)
[2017-12-25] MEDS: Spironolactone 25 MG TAB PO SCH (09:24)
[2017-12-25] MEDS: Enoxaparin Sodium 40 MG/0.4 ML SYRINGE SC SCH (09:24)
[2017-12-25] MEDS: Carvedilol 6.25 MG TAB PO SCH ×2 (09:25→20:16)
--- NOTE | 2017-12-25 09:43 | RAD ---
PORTABLE CHEST: Date: 12/25/17 PROVIDED CLINICAL HISTORY: Dyspnea. FINDINGS: Comparison with 11/22/17. Cardiac and mediastinal silhouette is within normal limits. Lungs appear clear. No pleural fluid or p neumothorax apparent. IMPRESSION: No evidence for an acute cardiopulmonary process. POS: [facility]
--- NOTE | 2017-12-25 10:28 | CON ---
DATE OF SERVICE: 12/25/2017 PRIMARY CLINICAL ALLERGIST: Dr. Alexandru Patterson. REASON FOR CONSULTATION: Heart failure. HISTORY OF PRESENT ILLNESS: Mr. Clinton is a pleasant 77-year-old white gentleman who comes to the [facility] for increased shortness of breath. He has had a very tough time recently. His passed lizbet y this past week and he has been under a lot of stress. He has been getting progressively more short of breath for the last week and so he could not take the breathing anymore yesterday, so he came in and was admitted for acute systolic heart failure. He has a history of ischemic cardiomyopathy. Dr. Patterson did heart catheterization on him last month and he was found to have multivessel disease r equiring bypass surgery. His EF is about 15%. He also was found to have severe aortic stenosis on e cho. Dr. Crocker has already evaluated him for consideration of AVR and bypass surgery. However, we w ere waiting on him being a little more stable and hopefully getting his LV function slightly better o n medications to optimize things before surgery as much as possible. He has received IV Lasix and al ready feeling better. PAST MEDICAL HISTORY: Include, 1. Hypertension. 2. Type 2 diabetes. 3. Severe aortic stenosis. 4. Severe multivessel disease. 5. Ischemic cardiomyopathy, EF at 15%-20%. 6. Severe diastolic dysfunction grade 3/3. 7. Hyperlipidemia. PAST SURGICAL HISTORY: Stenting x2 in the past. Not carotid stent, but cardiac stents. OUTPATIENT MEDICATIONS: 1. Aldactone 25 mg q.a.m. 2. Crestor 10 mg at bedtime. 3. Losartan 100 mg at bedtime. 4. Lasix 20 mg a day. 5. Coreg 6.25 b.i.d. 6. Aspirin 325 a day. ALLERGIES: No known drug allergies. SOCIAL HISTORY: No alcohol, tobacco, or drugs. FAMILY HISTORY: Noncontributory. REVIEW OF SYSTEMS: A 12-point review of systems was done and is all negative unless stated in the h istory of present illness. PHYSICAL EXAMINATION: VITAL SIGNS: Temperature 97.7, pulse 75, respiration rate 16, satting 95% on room air, blood pressur e 162/86. GENERAL: Awake, alert, oriented x3, in no distress. HEENT: Normocephalic and atraumatic. NECK: Supple. LUNGS: Clear to auscultation. CARDIOVASCULAR: There is a grade 3/3 late peaking systolic ejection murmur at right sternal border, radiated to the rest of the precordium. ABDOMEN: Soft. EXTREMITIES: 3+ edema. SKIN: Warm and dry. LABORATORY WORK: Reviewed. White count of 6.1, hemoglobin 13, hematocrit 41, platelet count of 180. Coags were negative. Chemistries were unremarkable except for sodium 134. Troponin is negative x3 . BNP was 2707. UA with 300 protein, 500 glucose, and trace blood, otherwise unremarkable. Chest x-ray was reviewed, no acute cardiopulmonary issues. EKG was reviewed and a nonspecific intraventricular delay. ASSESSMENT AND PLAN: 1. Acute on chronic systolic heart failure. 2. 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 3. Volume overload from congestive heart failure. 4. Severe aortic stenosis. 5. Severe LV dysfunction, last EF at 15% to 20%. PLAN: 1. Agree with continued IV Lasix. We would continue 40 mg IV b.i.d. that he is currently receiving, most of his fluid is on the right side, abdomen and legs. Also, agree with metolazone and to increa se Lasix. 2. We will decide on timing of surgery once he is more euvolemic. He is on the fence about doing th e surgery or not. Thank you for letting us participate in the care of your patient. We will continue to follow.
--- NOTE | 2017-12-25 12:15 | HP ---
DATE OF ADMISSION: 12/25/2017 PRIMARY CARE PHYSICIAN: ADIA Das CHIEF COMPLAINT: Worsening shortness of breath. HISTORY OF PRESENTING ILLNESS: Mr. Clinton is a very pleasant 77-year-old male with known history of i schemic cardiomyopathy with EF of 15%-20% as well as severe multivessel coronary artery disease and s evere aortic stenosis along with diabetes, hypertension, and dyslipidemia who presented to the emerge ncy room with the above-mentioned complaint. History is mainly obtained by the patient himself and e lectronic medical records have been reviewed. The patient was last admitted from 11/22/2017-11/26/19 18. At that time, he was having non-ST elevation ME. He was found to have severe ischemic cardiomyo kaleb with low EF grade III/III diastolic dysfunction and severe aortic stenosis with valve area of 0 .5 cm2 at that time. At that time, he was also treated for acute congestive heart failure exacerbati on. Cardiology and Cardiothoracic Surgery saw him that admission and decided that he needs to underg o CABG and aortic valve replacement, but somehow it was decided that it would be done as an outpatien t. Since then, the patient has been lost to follow up. [place] about 1 week ago. He has his children living close by, but it is hard for him to t ravel back and forth. He returned to the emergency room last night with complaints of worsening shortness of breath for the last 2-3 days. He was found to be in mild fluid overload with BNP of 2707 and negative cardiac enzy mes. His chest x-ray did not have any significant of fluid or pulmonary edema. He is now being admi tted with presumptive diagnosis of acute on chronic systolic heart failure. In the emergency room, he has received Lasix along with aspirin with improvement in his symptoms. PAST MEDICAL HISTORY: 1. Ischemic cardiomyopathy with EF of 15%-20% as of 11/2017. 2. Hypertension. 3. Diabetes mellitus type 2. 4. Severe aortic stenosis. 5. Severe multivessel coronary artery disease. 6. Severe diastolic dysfunction grade III/III. 7. Dyslipidemia. PAST SURGICAL HISTORY: Carotid stenting. ALLERGIES: No known medication allergies. FAMILY HISTORY: No family history of premature coronary artery disease or stroke. SOCIAL HISTORY: The patient just lost his . He is otherwise independent with his ADLs and IADLs . No history of drug, tobacco or alcohol abuse. HOME MEDICATIONS: Are as follows, Aldactone 25 mg daily, Crestor 20 mg daily, Cozaar 100 mg daily, L asix 20 mg daily, Coreg 6.25 mg p.o. b.i.d., aspirin 325 mg p.o. daily. REVIEW OF SYSTEMS: The following complete review of systems was negative, unless otherwise mentioned in the HPI or below: Constitutional: Weight loss or gain, ability to conduct usual activities. Skin: Rash, itching. Eyes: Double vision, pain. ENT/Mouth: Nose bleeding, neck stiffness, pain, tenderness. Cardiovascular: Palpitations, dyspnea on exertion, orthopnea. Respiratory: Shortness of breath, wheezing, cough, hemoptysis, fever or night sweats. Gastrointestinal: Poor appetite, abdominal pain, heartburn, nausea, vomiting, constipation, or diarr hea. Genitourinary: Urgency, frequency, dysuria, nocturia. Musculoskeletal: Pain, swelling. Neurologic/Psychiatric: Anxiety, depression. Allergy/Immunologic: Skin rash, bleeding tendency. It is negative except for those mentioned in the history and physical. LABORATORY DATA AND IMAGING DATA: CBC is rather unremarkable. His PT, PTT and INR are within normal limit. His serum chemistries show sodium of 134, blood sugar 292, ALT 56, BNP 2707. Cardiac enzyme s negative x3. Normal CK-MB. Normal lipase. Normal creatinine kinase. Urinalysis showed some prot einuria and glucosuria, otherwise unremarkable. Chest x-ray by my review has no evidence to suggest significant pulmonary edema, effusion or infiltrate. EKG shows normal sinus rhythm without any acute ST or T-wave changes by my review. PHYSICAL EXAMINATION: VITAL SIGNS: Most recent vital signs, temperature 97.3, pulse of 82, respirations 16, saturating 96% on room air, blood pressure 166/88. GENERAL: No acute distress, sitting up in bed and eating lunch. Awake, alert and oriented x3. HEENT: Mucous membrane is moist and pink. No oropharyngeal exudate or erythema. Head is normocepha lic, atraumatic. Pupils are equal and reactive to light and accommodation. Extraocular movement int act. NECK: Supple without any lymphadenopathy, JVD or bruit. CHEST: Clear to auscultation without any wheezing, rales or rhonchi. Rate and rhythm is regular. H e has grade III/III systolic murmur at the right sternal border. ABDOMEN: Soft, nontender and nondistended. EXTREMITIES: Show +3 pitting edema bilaterally. SKIN: Free of any rashes. Feels warm and dry to touch. PSYCHIATRIC: He is tearful and crying throughout the interview mourning his . NEUROLOGIC: Examination is nonfocal. IMPRESSION AND PLAN: 1. Acute on chronic congestive heart failure, systolic and diastolic. At this time, we will continu e with him on IV Lasix and add Zaroxolyn 1 time dose for better diuresis. Monitor strict I's and O's and limit fluid intake. We will consult Cardiology given his history of severe aortic stenosis, isc hemic cardiomyopathy and need for coronary artery bypass graft. If possible, he would need procedure s done during this hospitalization. Please note that the current status of this patient is observati on. However, if he needs cardiac surgeries, he should be changed to inpatient status. If he does no t undergo cardiac surgeries at this time, he is a high risk for readmission and risk of due to severe aortic stenosis and severe reduction in his left ventricular function. Continue his home medi cation of aspirin, beta esther, and ARB along with statin at this time. 2. Diabetes mellitus. It is unclear if the patient is taking any medications at home. He is hyperg lycemic. We will treat him with insulin sliding scale and monitor his blood sugars on a daily basis. He will be started on low dose oral hypoglycemics upon discharge. 3. Severe aortic stenosis. He needs aortic valve surgery. We will request Cardiology consult and [facility] Cardiothoracic Surgery consult depending upon his clinical course. 4. Severe ischemic cardiomyopathy. Continue with treatment as per #1. 5. History of hypertension. We will restart his Cozaar, which was increased during his last hospita lization and continue with his Coreg as well. 6. History of coronary artery disease. Continue aspirin, beta esther, ARB, and statin. 7. Code status: FULL CODE. 8. Deep venous thrombosis and gastrointestinal prophylaxis. DISPOSITION: The patient is currently being admitted for acute on chronic combined congestive heart failure. Further management will depend upon his clinical course. Estimated length of stay at this time will depend upon the need for cardiac surgeries. He is getting admitted under observation statu s for now.
[2017-12-25] MEDS: glipiZIDE 5 MG TAB PO SCH (16:17)
[2017-12-25] MEDS: HumaLOG 300 UNITS/3 ML VIAL SC PRN (16:18)
[2017-12-25] MEDS: Losartan 25 MG TAB PO SCH (20:16)
[2017-12-26 04:51] LABS: #Eosinphils 0.1 thou/uL (0.0-0.7); #Lymphocytes 0.7 thou/uL (1.20-3.40); #Monocytes 0.7 thou/uL (0.11-0.59); %Basophils 0.4 % (0.0-1.0); %Eosinophils 2.3 % (0.0-10.0); %Lymphocytes 13.4 % (21.0-51.0); %Monocytes 11.9 % (0.0-10.0); Mean Corpuscular HGB CONC 33.8 g/dL (32.0-36.0); Mean Corpuscular Hemoglobin 32.2 pg (27.0-31.0); Mean Corpuscular Volume 95.1 fl (80.0-94.0); Mean Platelet Volume 7.3 fL (7.4-10.4); Platelet Count 169 thou/uL (130-400); RBC Distribution Width 13.5 % (11.5-14.5); Red Blood Cell (RBC) Count 4.04 mill/uL (4.70-6.10); White Blood Cell (WBC) Count 5.5 thou/uL (4.8-10.8)
[2017-12-26 05:04] LABS: Anion Gap 13 mmol/L (10-20); BUN (Urea Nitrogen) 16 mg/dL (8.4-25.7); Calc. Creatinine Clearance 71 mL/min (70-130); Calcium 9.6 mg/dL (7.8-10.44); Carbon Dioxide 30 mmol/L (23-31); Chloride 98 mmol/L (98-107); Estimated GFR-MDRD 73; Glucose 135 mg/dL (83-110); Potassium 3.5 mmol/L (3.5-5.1); Sodium 137 mmol/L (136-145)
[2017-12-26] MEDS: Furosemide 40 MG/4 ML VIAL SLOW IVP SCH ×2 (06:16→14:13)
[2017-12-26] MEDS: Rosuvastatin 20 MG TAB PO SCH (08:09)
[2017-12-26] MEDS: glipiZIDE 5 MG TAB PO SCH ×2 (08:09→15:30)
[2017-12-26] MEDS: Famotidine 20 MG TAB PO SCH ×2 (08:10→21:02)
[2017-12-26] MEDS: Aspirin 325 mg Enteric Coated Tablet PO SCH (08:10)
[2017-12-26] MEDS: Spironolactone 25 MG TAB PO SCH (08:10)
[2017-12-26] MEDS: Carvedilol 6.25 MG TAB PO SCH ×2 (08:10→21:02)
[2017-12-26] MEDS ORDERED: Spironolactone 25 MG TAB PO SCH (08:32)
[2017-12-26] MEDS: Enoxaparin Sodium 40 MG/0.4 ML SYRINGE SC SCH (09:39)
--- NOTE | 2017-12-26 14:15 | PDOC.PN ---
- Subjective Encounter Start Date: 12/26/17 Encounter Start Time: 14:13 Subjective: feels much better. breathing easier.off of O2 -: tearful as last week -: walked all around w rehab - Objective MAR Reviewed: Yes Vital Signs & Weight: Vital Signs (12 hours) Temp Pulse Pulse Resp BP BP Pulse Ox 12/26/17 11:00 64 126/69 12/26/17 10:53 97.4 F L 66 16 139/69 96 Pulse Ox 12/26/17 11:00 95 12/26/17 10:53 I&O: 12/25/17 12/26/17 12/27/17 06:59 06:59 06:59 Output Total 1000 Balance -1000 Result Diagrams: 12/26/17 04:28 12/26/17 04:28 Additional Labs: Accuchecks 12/26/17 10:58 POC Glucose 289 H Laboratory Tests 12/25/17 12/25/17 12/25/17 01:09 01:09 04:03 Troponin I 0.024 0.027 B-Natriuretic Peptide 2707.9 H 12/25/17 06:46 Troponin I 0.028 B-Natriuretic Peptide Phys Exam - Physical Examination Constitutional: NAD HEENT: PERRLA, moist MMs, sclera anicteric, oral pharynx no lesions Neck: no nodes, no JVD, supple, full ROM Respiratory: no wheezing, no rales, no rhonchi, clear to auscultation bilateral Cardiovascular: RRR, no significant murmur Gastrointestinal: soft, non-tender, no distention, positive bowel sounds Musculoskeletal: no edema, pulses present Neurological: non-focal, normal sensation, moves all 4 limbs Psychiatric: normal affect, A&O x 3 Skin: no rash Dx/Plan (1) Acute exacerbation of CHF (congestive heart failure) Code(s): I50.9 - HEART FAILURE, UNSPECIFIED Status: Acute Qualifiers: Comment: ef of 20% (2) Ischemic cardiomyopathy Code(s): I25.5 - ISCHEMIC CARDIOMYOPATHY Status: Acute Comment: EF 15-20% (3) Aortic stenosis, severe Code(s): I35.0 - NONRHEUMATIC AORTIC (VALVE) STENOSIS Status: Acute (4) CAD (coronary artery disease) Code(s): I25.10 - ATHSCL HEART DISEASE OF [place] CORONARY ARTERY W/O ANG PCTRS Status: Acute Qualifiers: (5) NSTEMI (non-ST elevated myocardial infarction) Code(s): I21.4 - NON-ST ELEVATION (NSTEMI) MYOCARDIAL INFARCTION Status: Acute Comment: (6) Carotid arterial disease Code(s): I77.9 - DISORDER OF ARTERIES AND ARTERIOLES, UNSPECIFIED Status: Chronic Qualifiers: Comment: prior h/o stents. (7) DM type 2 (diabetes mellitus, type 2) Status: Chronic Qualifiers: Comment: Controlled and at hospital goal (8) HTN (hypertension) Code(s): I10 - ESSENTIAL (PRIMARY) HYPERTENSION Status: Chronic Qualifiers: Comment: Fair control. Continue home meds. - Plan PT/OT, out of bed/ambulate, DVT proph w/SCDs cont diuresis.cont ASA,BB,ARB,statin.Increase aldactone dose -: cardiology following.needs AVR,AICD,jeff cath/CABG -: not safe for DC as will need,at the least,Lifevest -: will discuss w cardiology.will jeff get Sx this hospitalization -: [place] has [place] * .Will change to inpatient * am labs. * strict I/Os Review of Systems - Review of Systems Constitutional: negative: fever, chills, sweats, weakness, malaise, other Respiratory: negative: Cough, Dry, Shortness of Breath, Hemoptysis, SOB with Excertion, Pleuritic Pain, Sputum, Wheezing Cardiovascular: negative: chest pain, palpitations, orthopnea, paroxysmal nocturnal dyspnea, edema, light headedness, other Gastrointestinal: negative: Nausea, Vomiting, Abdominal Pain, Diarrhea, Constipation, Melena, Hematochezia, Other Genitourinary: negative: Dysuria, Frequency, Incontinence, Hematuria, Retention , Other Musculoskeletal: negative: Neck Pain, Shoulder Pain, Arm Pain, Back Pain, Hand Pain, Leg Pain, Foot Pain, Other Skin: negative: Rash, Lesions, Last, Bruising, Other Neurological: negative: Weakness, Numbness, Incoordination, Change in Speech, Confusion, Seizures, Other - Medications/Allergies Allergies/Adverse Reactions: Allergies Allergy/AdvReac Type Severity Reaction Status Date / Time No Known Drug Allergies Allergy Verified 12/25/17 04:37 Medications: Current Medications Acetaminophen (Tylenol) 650 mg PO Q4H PRN PRN Reason: Headache/Fever or Pain Al Hydroxide/Mg Hydroxide (Maalox) 30 ml PO Q6H PRN PRN Reason: Heartburn or Indigestion Aspirin (Ecotrin) 325 mg PO DAILY [facility] Last Admin: 12/26/17 08:10 Dose: 325 mg Benzonatate (Tessalon) 100 mg PO Q4H PRN PRN Reason: Cough Bisacodyl (Dulcolax) 10 mg PO DAILYPRN PRN PRN Reason: Constipation Calcium Carbonate (Tums) 1,000 mg PO Q4H PRN PRN Reason: Heartburn or Indigestion Carvedilol (Coreg) 6.25 mg PO BID [facility] Last Admin: 12/26/17 08:10 Dose: 6.25 mg Clonidine (Catapres) 0.1 mg PO Q4H PRN PRN Reason: Systolic BP > 160 Dextrose/Water (Dextrose 50%) 25 gm SLOW IVP PRN PRN PRN Reason: Hypoglycemia Enoxaparin Sodium (Lovenox) 40 mg SC 0900 [facility] Last Admin: 12/26/17 09:39 Dose: 40 mg Famotidine (Pepcid) 20 mg PO BID [facility] Last Admin: 12/26/17 08:10 Dose: 20 mg Furosemide (Lasix) 40 mg SLOW IVP 0600,1400 [facility] Last Admin: 12/26/17 14:13 Dose: 40 mg Glipizide (Glucotrol) 5 mg PO BID-AC [facility] Last Admin: 12/26/17 08:09 Dose: 5 mg Glucagon (Glucagon) 1 mg IM PRN PRN PRN Reason: Hypoglycemia Guaifenesin (Robitussin Sf) 200 mg PO Q4H PRN PRN Reason: Cough Hydralazine HCl (Apresoline) 10 mg SLOW IVP Q4H PRN PRN Reason: Systolic BP > 170 Dextrose/Water (D5w) 1,000 mls @ 0 mls/hr IV .Q0M PRN; As Directed PRN Reason: Hypoglycemia Insulin Human Lispro (Humalog) 0 units SC .MODERATE SLIDING SC PRN PRN Reason: Moderate Correctional Scale Last Admin: 12/25/17 16:18 Dose: 6 unit Insulin Human Lispro (Humalog) 0 units SC .BEDTIME SLIDING SC PRN PRN Reason: Bedtime Correctional Scale Loratadine (Claritin) 10 mg PO DAILYPRN PRN PRN Reason: Sinus Symptoms Losartan Potassium (Cozaar) 100 mg PO HS [facility] Last Admin: 12/25/17 20:16 Dose: 100 mg Nitroglycerin (Nitrostat) 0.4 mg SL Q5MIN PRN PRN Reason: Chest Pain Ondansetron HCl (Zofran) 4 mg IVP Q6H PRN PRN Reason: Nausea/Vomiting Rosuvastatin Calcium (Crestor) 20 mg PO DAILY [facility] Last Admin: 12/26/17 08:09 Dose: 20 mg Senna (Senokot) 2 tab PO HSPRN PRN PRN Reason: Constipation Sodium Chloride (Flush - Normal Saline) 10 ml IVF Q12HR [facility] Last Admin: 12/26/17 08:10 Dose: 10 ml Sodium Chloride (Flush - Normal Saline) 10 ml IVF PRN PRN PRN Reason: Saline Flush Last Admin: 12/26/17 06:16 Dose: 10 ml Spironolactone (Aldactone) 25 mg PO QAM-[facility] Tramadol HCl (Ultram) 50 mg PO Q4H PRN PRN Reason: Moderate Pain (4-6)
[2017-12-26] MEDS: HumaLOG 300 UNITS/3 ML VIAL SC PRN (15:27)
--- NOTE | 2017-12-26 18:21 | PDOC.CTH ---
Cardiology Progress Note - Subjective His breathing is better. His edema has improved. - Objective Vital Signs Temp Pulse Pulse Resp BP BP Pulse Ox 12/26/17 15:33 97.2 F L 63 16 124/67 92 L 12/26/17 11:00 64 126/69 12/26/17 10:53 97.4 F L 66 16 139/69 96 Pulse Ox 12/26/17 15:33 12/26/17 11:00 95 12/26/17 10:53 12/25/17 12/26/17 12/27/17 06:59 06:59 06:59 Output Total 1900 Balance -1900 - Physical Examination General/Neuro: alert & oriented x3, NAD Neck: no JVD present Lungs: unlabored respirations Heart: RRR Abdomen: NT/ND Extremities: + edema B (1+) - Telemetry Telemetry Rhythm: NSR - Labs Result Diagrams: 12/26/17 04:28 12/26/17 04:28 Troponin/CKMB CK-MB (CK-2) 2.5 ng/mL (0-6.6) 12/25/17 01:09 Troponin I 0.028 ng/mL (< 0.028) 12/25/17 06:46 - Assessment/Plan 1. Acute on chronic systolic heart failure. 2. Severe ischemic CM EF at 15-20% 3. Severe . PLAN: - Continue IV diuresis. - Dr. Patterson to resume care tomorrow.
[2017-12-26] MEDS: Losartan 25 MG TAB PO SCH (21:02)
[2017-12-27] MEDS: Furosemide 40 MG/4 ML VIAL SLOW IVP SCH ×2 (05:13→12:56)
[2017-12-27 06:03] LABS: Anion Gap 15 mmol/L (10-20); BUN (Urea Nitrogen) 21 mg/dL (8.4-25.7); Calc. Creatinine Clearance 58 mL/min (70-130); Calcium 10.1 mg/dL (7.8-10.44); Carbon Dioxide 30 mmol/L (23-31); Chloride 91 mmol/L (98-107); Estimated GFR-MDRD 64; Glucose 169 mg/dL (83-110); Potassium 3.4 mmol/L (3.5-5.1); Sodium 133 mmol/L (136-145)
[2017-12-27] MEDS ORDERED: Spironolactone 25 MG TAB PO SCH (08:00)
[2017-12-27] MEDS: Rosuvastatin 20 MG TAB PO SCH (09:06)
[2017-12-27] MEDS: Famotidine 20 MG TAB PO SCH (09:06)
[2017-12-27] MEDS: Carvedilol 6.25 MG TAB PO SCH (09:06)
[2017-12-27] MEDS: glipiZIDE 5 MG TAB PO SCH ×2 (09:06→16:47)
[2017-12-27] MEDS: Enoxaparin Sodium 40 MG/0.4 ML SYRINGE SC SCH (09:06)
[2017-12-27] MEDS: Aspirin 325 mg Enteric Coated Tablet PO SCH (09:06)
[2017-12-27] MEDS ORDERED: Potassium Chloride 20 MEQ TAB PO SCH (09:30)
[2017-12-27] MEDS: HumaLOG 300 UNITS/3 ML VIAL SC PRN (12:54)
--- NOTE | 2017-12-27 14:19 | PDOC.PN ---
- Subjective Encounter Start Date: 12/27/17 Encounter Start Time: 14:17 Subjective: feels well. no new complaints -: no SOB/CP - Objective MAR Reviewed: Yes Vital Signs & Weight: Vital Signs (12 hours) Temp Pulse Pulse Resp BP BP Pulse Ox 12/27/17 08:57 80 155/67 H 12/27/17 07:57 97.4 F L 70 14 12/27/17 07:40 98.1 F 57 L 16 143/65 H 92 L 12/27/17 05:36 98 12/27/17 04:20 97.4 F L 70 14 121/68 98 Weight Weight 165 lb 11.2 oz I&O: 12/26/17 12/27/17 12/28/17 06:59 06:59 06:59 Intake Total 924 720 Output Total 3150 1100 Balance -7046 -095 Result Diagrams: 12/26/17 04:28 12/27/17 04:49 Additional Labs: Accuchecks 12/27/17 12/26/17 12/26/17 11:07 20:19 18:46 POC Glucose 306 H 150 H 193 H 12/26/17 14:52 POC Glucose 321 H Phys Exam - Physical Examination Constitutional: NAD HEENT: PERRLA, moist MMs, sclera anicteric, oral pharynx no lesions Neck: no nodes, no JVD, supple, full ROM Respiratory: no wheezing, no rales, no rhonchi, clear to auscultation bilateral Cardiovascular: RRR, no significant murmur Gastrointestinal: soft, non-tender, no distention, positive bowel sounds Musculoskeletal: no edema, pulses present Neurological: non-focal, normal sensation, moves all 4 limbs Psychiatric: normal affect, A&O x 3 Skin: no rash Dx/Plan (1) Acute exacerbation of CHF (congestive heart failure) Code(s): I50.9 - HEART FAILURE, UNSPECIFIED Status: Acute Qualifiers: Comment: ef of 20% .No AICD in place so far. on Lasix IV BID (2) Ischemic cardiomyopathy Code(s): I25.5 - ISCHEMIC CARDIOMYOPATHY Status: Chronic Comment: EF 15-20% (3) Aortic stenosis, severe Code(s): I35.0 - NONRHEUMATIC AORTIC (VALVE) STENOSIS Status: Chronic (4) CAD (coronary artery disease) Code(s): I25.10 - ATHSCL HEART DISEASE OF [place] CORONARY ARTERY W/O ANG PCTRS Status: Chronic Qualifiers: (5) Carotid arterial disease Code(s): I77.9 - DISORDER OF ARTERIES AND ARTERIOLES, UNSPECIFIED Status: Chronic Qualifiers: Comment: prior h/o stents. (6) DM type 2 (diabetes mellitus, type 2) Status: Chronic Qualifiers: Comment: Controlled and at hospital goal (7) HTN (hypertension) Code(s): I10 - ESSENTIAL (PRIMARY) HYPERTENSION Status: Chronic Qualifiers: Comment: Fair control. Continue home meds. - Plan PT/OT, social worker health services, incentive spirometry, out of bed/ambulate, DVT proph w/ SCDs Cont lasix.ASA,statin,BB,ARB,aldactone. -: repalce and recheck Potassium w startin daily dosing -: awaiting final cardiology recs regarding CABG/AVR/AICD -: if no Sx this time,will need LifeVest -: pt high risk of readmission as he does not have easy access to medical care * .AM labs Review of Systems - Review of Systems Constitutional: negative: fever, chills, sweats, weakness, malaise, other ENT: negative: Ear Pain, Ear Discharge, Nose Pain, Nose Discharge, Nose Congestion, Mouth Pain, Mouth Swelling, Throat Pain, Throat Swelling, Other Respiratory: negative: Cough, Dry, Shortness of Breath, Hemoptysis, SOB with Excertion, Pleuritic Pain, Sputum, Wheezing Cardiovascular: negative: chest pain, palpitations, orthopnea, paroxysmal nocturnal dyspnea, edema, light headedness, other Genitourinary: negative: Dysuria, Frequency, Incontinence, Hematuria, Retention , Other Musculoskeletal: negative: Neck Pain, Shoulder Pain, Arm Pain, Back Pain, Hand Pain, Leg Pain, Foot Pain, Other Skin: negative: Rash, Lesions, Last, Bruising, Other Neurological: negative: Weakness, Numbness, Incoordination, Change in Speech, Confusion, Seizures, Other - Medications/Allergies Allergies/Adverse Reactions: Allergies Allergy/AdvReac Type Severity Reaction Status Date / Time No Known Drug Allergies Allergy Verified 12/25/17 04:37 Medications: Current Medications Acetaminophen (Tylenol) 650 mg PO Q4H PRN PRN Reason: Headache/Fever or Pain Al Hydroxide/Mg Hydroxide (Maalox) 30 ml PO Q6H PRN PRN Reason: Heartburn or Indigestion Aspirin (Ecotrin) 325 mg PO DAILY [facility] Last Admin: 12/27/17 09:06 Dose: 325 mg Benzonatate (Tessalon) 100 mg PO Q4H PRN PRN Reason: Cough Bisacodyl (Dulcolax) 10 mg PO DAILYPRN PRN PRN Reason: Constipation Calcium Carbonate (Tums) 1,000 mg PO Q4H PRN PRN Reason: Heartburn or Indigestion Carvedilol (Coreg) 6.25 mg PO BID [facility] Last Admin: 12/27/17 09:06 Dose: 6.25 mg Clonidine (Catapres) 0.1 mg PO Q4H PRN PRN Reason: Systolic BP > 160 Dextrose/Water (Dextrose 50%) 25 gm SLOW IVP PRN PRN PRN Reason: Hypoglycemia Enoxaparin Sodium (Lovenox) 40 mg SC 0900 [facility] Last Admin: 12/27/17 09:06 Dose: 40 mg Famotidine (Pepcid) 20 mg PO BID [facility] Last Admin: 12/27/17 09:06 Dose: 20 mg Furosemide (Lasix) 40 mg SLOW IVP 0600,1400 [facility] Last Admin: 12/27/17 12:56 Dose: 40 mg Glipizide (Glucotrol) 5 mg PO BID-AC [facility] Last Admin: 12/27/17 09:06 Dose: 5 mg Glucagon (Glucagon) 1 mg IM PRN PRN PRN Reason: Hypoglycemia Guaifenesin (Robitussin Sf) 200 mg PO Q4H PRN PRN Reason: Cough Hydralazine HCl (Apresoline) 10 mg SLOW IVP Q4H PRN PRN Reason: Systolic BP > 170 Dextrose/Water (D5w) 1,000 mls @ 0 mls/hr IV .Q0M PRN; As Directed PRN Reason: Hypoglycemia Insulin Human Lispro (Humalog) 0 units SC .MODERATE SLIDING SC PRN PRN Reason: Moderate Correctional Scale Last Admin: 12/27/17 12:54 Dose: 8 unit Insulin Human Lispro (Humalog) 0 units SC .BEDTIME SLIDING SC PRN PRN Reason: Bedtime Correctional Scale Loratadine (Claritin) 10 mg PO DAILYPRN PRN PRN Reason: Sinus Symptoms Losartan Potassium (Cozaar) 100 mg PO HS [facility] Last Admin: 12/26/17 21:02 Dose: 100 mg Nitroglycerin (Nitrostat) 0.4 mg SL Q5MIN PRN PRN Reason: Chest Pain Ondansetron HCl (Zofran) 4 mg IVP Q6H PRN PRN Reason: Nausea/Vomiting Potassium Chloride (K-Dur) 20 meq PO QAM-[facility] Rosuvastatin Calcium (Crestor) 20 mg PO DAILY [facility] Last Admin: 12/27/17 09:06 Dose: 20 mg Senna (Senokot) 2 tab PO HSPRN PRN PRN Reason: Constipation Sodium Chloride (Flush - Normal Saline) 10 ml IVF Q12HR [facility] Last Admin: 12/27/17 09:07 Dose: 10 ml Sodium Chloride (Flush - Normal Saline) 10 ml IVF PRN PRN PRN Reason: Saline Flush Last Admin: 12/27/17 05:13 Dose: 10 ml Spironolactone (Aldactone) 25 mg PO QAM-[facility] Last Admin: 12/27/17 09:06 Dose: 25 mg Tramadol HCl (Ultram) 50 mg PO Q4H PRN PRN Reason: Moderate Pain (4-6)
--- NOTE | 2017-12-27 14:52 | PRG ---
DATE OF SERVICE: 12/27/2017 SUBJECTIVE: Mr. Clinton recently was admitted for recurrent heart failure. He has a history of severe multivessel disease, cardiomyopathy and severe aortic stenosis. He states he is back to his baselin e. He states he was ambulating up and down the starr. OBJECTIVE: CURRENT VITAL SIGNS: Blood pressure 155/67, pulse 70 and temperature 97.4. LUNGS: Clear to auscultation. HEART: Regular rate and rhythm with 2/6 systolic ejection murmur. ABDOMEN: Soft, nontender and nondistended. EXTREMITIES: No edema. IMPRESSION: 1. Severe 3-vessel disease. 2. Severe aortic stenosis. 3. Severe cardiomyopathy. RECOMMENDATIONS: Mr. Clinton has been turned down for surgery in our institution. We will refer to [facility] in [place]. I have asked that he take his CD of his echo and cath for his office visit. At this point, he appears euvolemic and will be okay from my standpoint to discharge home. Unfortunate ly, there is a high risk of recurrent admission due to the above issues unless corrected.
[2017-12-27 19:46] VITALS: BP 113/64; TEMP 97.8
[2017-12-28] MEDS ORDERED: Potassium Chloride 20 MEQ TAB PO SCH (08:00)
--- NOTE | 2017-12-28 08:29 | PRG ---
DATE OF SERVICE: 12/27/2017 SUBJECTIVE: Mr. Clinton would like to go home. From a CV standpoint, he is stable. I discussed LifeV est with Mr. Clinton. I discussed the risks and benefits of LifeVest. He would be better served by wa iting for LifeVest until tomorrow. The patient would like to go home. At this point, he appears to be cardiovascularly stable. The [facility] request has been placed. I also reached out to Dr. Sosa in [place]. He will have an appointment to discuss treatment options with Dr. Sosa on Wednesday.
--- NOTE | 2017-12-28 09:22 | DIS ---
DATE OF ADMISSION: 12/26/2017 DATE OF DISCHARGE: 12/27/2017 CONDITION AT THE TIME OF DISCHARGE: Stable and improved. DISCHARGE DISPOSITION: Home. DISCHARGE DIAGNOSES: 1. Acute on chronic congestive heart failure, systolic in nature. 2. Severe ischemic cardiomyopathy with ejection fraction of 10%-15%. 3. Severe 3-vessel coronary artery disease. 4. Severe aortic stenosis. 5. Hypertension. 6. Diabetes mellitus type 2. 7. History of carotid arterial disease, status post stenting in the past. DISCHARGE MEDICATIONS: Are as follows; Aldactone 25 mg daily, Crestor 20 mg daily, Cozaar 100 mg daniel ly, Lasix 20 mg daily, Coreg 6.25 mg p.o. b.i.d., and aspirin 325 mg daily. PROCEDURE DONE IN THE HOSPITAL: Chest x-ray. CONSULTATIONS: Cardiology, Dr. Hernandez and Dr. Patterson. HISTORY OF PRESENTING ILLNESS: Mr. Clinton is a very pleasant 77-year-old male with known history of s evere aortic stenosis, ischemic cardiomyopathy and severe coronary artery disease who needs to underg o CABG as well as aortic valve replacement and possible AICD placement, came to the emergency [facility] complains of worsening shortness of breath. He was hypoxic on presentation and was found to be in acute CHF with a BNP of 2700 and negative cardiac enzymes. He was admitted for diuresis and Cardiol bradly was consulted. Please see admission history and physical for further details. HOSPITAL COURSE: The patient had excellent diuresis and returned back to his baseline pretty quickly . Cardiology saw the patient and the decision was discussed whether he should stay in the hospital a nd transferred to [place] to get his surgery done, but because the patient was so eager to go home an d he was feeling good, Cardiology cleared him for discharge. I discussed his LifeVest with Dr. Patterson who feels comfortable letting him go home at this time as he is stable. LifeVest fitting versus AICD placement will be discussed between the patient and his industrial spray painter, Dr. Sosa in [place] this coming Wednesday according to Dr. Patterson. I tried to discuss this with Mr. Clinton but at this time, he would really like to go home and would not want to wait anymore to get the LifeVest fitted in the hospital. He declined the offer. He recently lost hi s 1 week ago and would rather be home. He does remain a FULL CODE as of now. He was seen and examined prior to discharge. He is back to his baseline while ambulating in the starr ways and on room air. Please see hospitalist progress note from the date of discharge for further de tail including [id number] interaction. Medications were reconciled and he was discharged back home . Total time spent 32 minutes.
--- NOTE | 2018-02-04 14:41 | EKG ---
Test Reason : Blood Pressure : / mmHG Vent. Rate : 072 BPM Atrial Rate : 072 BPM P-R Int : 190 ms QRS Dur : 128 ms QT Int : 428 ms P-R-T Axes : 075 003 183 degrees QTc Int : 468 ms Normal sinus rhythm Non-specific intra-ventricular conduction block T wave abnormality, consider inferolateral ischemia Abnormal ECG When compared with ECG of NOV 2017 No changes Confirmed by LOYDA SEARS, HECTOR ([id number]), editor producer JADEN FINE ([id number]) on 02/04/2018 2:41:22 PM Referred By: Confirmed By:HECTOR SCALES MD
== END 2017-12-27 18:36 | disposition home or self-care (01) | DRG 293 ==
LOC: ERS 00:24 → 2SW 02:41 → OBSVTOIN 12-26 08:45
PROVIDERS: ADMIT Internal Medicine; ATTEND Internal Medicine
DX: I11.0 Hypertensive heart disease with heart failure (principal); I35.0 Nonrheumatic aortic (valve) stenosis; E11.9 Type 2 diabetes mellitus without complications; I25.5 Ischemic cardiomyopathy; I25.10 Atherosclerotic heart disease of native coronary artery without angina pectoris; I50.23 Acute on chronic systolic (congestive) heart failure; E78.5 Hyperlipidemia, unspecified; I25.2 Old myocardial infarction; Z79.82 Long term (current) use of aspirin; R09.02 Hypoxemia
CPT/HCPCS: 36415; 36416; 71045; 80048; 80053; 81003; 81015; 82553; 83690; 83880; 84484; 85025; 85610; 85730; 93005; 96374; A4216; G8978-GP-CI; G8979-GP-CI; G8980-GP-CI; G8987-GO-CI; G8988-GO-CI; G8989-GO-CI; J1650; J1940

== ENCOUNTER 2018-01-31 19:49 | Inpatient (IN) | payer MEDICARE ==
[~2018-01-31 19:49] MED LIST: ISOVUE-370 76%-LOCM 1 ML ONE
[2018-01-31 20:17] LABS: #Eosinphils 0.2 thou/uL (0.0-0.7); #Lymphocytes 0.8 thou/uL (1.20-3.40); #Monocytes 0.7 thou/uL (0.11-0.59); #Neutrophils 5.6 thou/uL (1.40-6.50); %Basophils 0.1 % (0.0-1.0); %Eosinophils 2.2 % (0.0-10.0); %Lymphocytes 10.9 % (21.0-51.0); %Monocytes 9.3 % (0.0-10.0); %Neutrophils 77.5 % (42.0-75.0); Hemoglobin 13.2 g/dL (14.0-18.0); Mean Corpuscular HGB CONC 36.1 g/dL (32.0-36.0); Mean Corpuscular Volume 91.5 fl (80.0-94.0); Mean Platelet Volume 7.1 fL (7.4-10.4); Platelet Count 194 thou/uL (130-400); RBC Distribution Width 14.7 % (11.5-14.5); Red Blood Cell (RBC) Count 3.99 mill/uL (4.70-6.10); White Blood Cell (WBC) Count 7.3 thou/uL (4.8-10.8)
[2018-01-31 20:24] LABS: INR-International Normal Ratio 1.2; PTT 30.4 SEC (22.9-36.1); Prothrombin Time 15.1 SEC (12.0-14.7)
[2018-01-31 20:30] LABS: Anion Gap 15 mmol/L (10-20); BUN (Urea Nitrogen) 26 mg/dL (8.4-25.7); Calc. Creatinine Clearance 0 mL/min (70-130); Calcium 9.7 mg/dL (7.8-10.44); Carbon Dioxide 23 mmol/L (23-31); Chloride 100 mmol/L (98-107); Estimated GFR-MDRD 43; Glucose 215 mg/dL (83-110); Potassium 4.5 mmol/L (3.5-5.1); Sodium 133 mmol/L (136-145)
[2018-01-31 20:37] LABS: CKMB 2.6 ng/mL (0-6.6); Troponin I 0.151 ng/mL (< 0.028)
[2018-01-31] MEDS ORDERED: Aspirin 325 MG TAB ONE (20:48)
--- NOTE | 2018-01-31 21:53 | RAD ---
PORTABLE UPRIGHT FRONTAL CHEST RADIOGRAPH: 01/31/2018 HISTORY: Pain. COMPARISON: 12/25/2017 FINDINGS: Coronary arterial calcification and/or stent material noted on the left. No pneumothorax, pleural fl uid, focal consolidation, or alveolar edema. heart and mediastinal contours are stable. IMPRESSION: No acute findings. POS: CHRIS
[2018-01-31] MEDS ORDERED: Enoxaparin Sodium 80 MG/0.8 ML SYRINGE ONE (22:48)
--- NOTE | 2018-01-31 22:49 | CT ---
CT ANGIOGRAM CHEST AND ABDOMEN: 01/31/2018 HISTORY: Chest pain and back pain. COMPARISON: None. TECHNIQUE: Serial axial CT imaging obtained at 2.5 mm intervals, from the thoracic inlet through the aortic bifu rcation, with IV contrast, using a CT angiogram protocol. Coronal and sagittal 3D reformatted imagin g obtained. FINDINGS: Opacification of the aorta in the chest is suboptimal, secondary to timing of the contrast bolus. Th e pulmonary arteries are much better opacified than the aorta, particularly in the chest. There is no axillary, mediastinal, or hilar lymphadenopathy. There is scattered atherosclerotic calcification of the aortic arch, mild. There is coronary arteria l calcification and stent material noted. There is no evidence for pulmonary arterial embolism. The re is no evidence for aneurysm or dissection within the thoracic aorta, limited secondary to suboptim al opacification. No pneumothorax is seen on either side. The lung parenchyma demonstrates no acute finding on either side. There is a pleural-based nodule an teriorly, within the right middle lobe, on image 67, measuring 5 mm. The osseous structures of the c hest demonstrate mild multilevel thoracic spine disk space narrowing and osteophyte formation. There is degenerative change involving the bilateral glenohumeral joints. No acute osseous abnormality is seen. There is no evidence for aneurysm or dissection involving the abdominal aorta. There is atherosclero tic calcification scattered throughout the abdominal aorta and in the region of the origin or the lito iac axis, superior mesenteric artery, and bilateral renal arteries. There is a mild degree of stenos is involving the proximal SMA, on the basis of partially calcified plaque. There is mild stenosis at the origin of the right renal artery, and there is moderate stenosis at the origin of the left renal artery. The liver, spleen, gallbladder, pancreas, adrenal glands, and kidneys demonstrate no acute findings. The osseous structures of the abdomen demonstrate multilevel lower lumbar spine facet hypertrophic ch pavan. No worrisome lytic or blastic bone lesion. IMPRESSION: Atherosclerotic disease with no evidence for aneurysm or dissection of the aorta. Please see above d iscussion. POS: ERASMO
[2018-01-31 23:54] LABS: Troponin I 0.158 ng/mL (< 0.028)
[2018-02-01] MEDS ORDERED: hydrALAZINE 20 MG/ML VIAL SLOW IVP PRN (01:47)
[2018-02-01] MEDS ORDERED: Bisacodyl 5 MG TAB PO PRN ×2 (01:47)
[2018-02-01] MEDS ORDERED: Acetaminophen 325 MG TAB PO PRN (01:47)
[2018-02-01] MEDS ORDERED: HYDROcodone/Acetaminophen 5/325 mg Tablet PO PRN (01:47)
[2018-02-01] MEDS ORDERED: Nitroglycerin 0.4 MG TAB (25 Tab Bottle) SL PRN (01:47)
[2018-02-01] MEDS ORDERED: Mag-Al 1200 mg/1200 mg/30 ML UDCUP PO PRN (01:47)
[2018-02-01] MEDS ORDERED: cloNIDine 0.1 MG TAB PO PRN (01:47)
[2018-02-01] MEDS ORDERED: traMADol HCl 50 MG TAB PO PRN (01:47)
[2018-02-01] MEDS ORDERED: Senokot 8.6 MG TAB PO PRN ×2 (01:47)
[2018-02-01] MEDS ORDERED: Ondansetron PF 4 MG/2 ML Vial IVP PRN ×2 (01:47)
[2018-02-01] MEDS ORDERED: Calcium Carbonate 500 MG ChewTAB PO PRN (01:47)
[2018-02-01] MEDS ORDERED: Diabetic Tussin 200 MG/10 ML UDCUP PO PRN (01:47)
[2018-02-01] MEDS ORDERED: Loratadine 10 MG TAB PO PRN (01:47)
[2018-02-01] MEDS ORDERED: Benzonatate 100 MG CAP PO PRN (01:47)
--- NOTE | 2018-02-01 02:35 | HP ---
DATE OF ADMISSION: 01/31/2018 CHIEF COMPLAINT: Pain in the upper back. PRIMARY CARE PHYSICIAN: Paz Grady. PRIMARY BOILER TESTER: Dr. Patterson. HISTORY OF PRESENT ILLNESS: Mr. Clinton is a very pleasant 77-year-old male with known history of smita re coronary artery disease, severe aortic stenosis as well as ischemic cardiomyopathy who presented t o the emergency room with the above-mentioned complaint. History is mainly obtained by the patient h imself and with extensive record reviewed. The patient was last admitted to our facility about 1 month ago with acute on chronic systolic conges tive heart failure. He has known history of severe ischemic cardiomyopathy with EF of 10%-15% as wel l as severe 3-vessel coronary artery disease and aortic stenosis. At that time, he was seen by [facility] lisa and actually was fitted with LifeVest as an outpatient after discharge. Since then, he has bee n referred to [place] for aortic valve replacement with Dr. Vasquez. Since then he has been seen by Dr Linwood Vasquez in [place] earlier this month and actually has undergone 2 cardiac stent placements. He is s cheduled to get an aortic valve replacement on 02/03/2018. He has been started on Plavix as well as Viagra for pulmonary hypertension. Since the discharge from [facility], he has not been wearin g his LifeVest as he was not sure if he is supposed to put it back on or not. He still has it at [facility], however. Today, he was brought in by concerned family members. Apparently, he has been having this upper back pain between his shoulder blades for the last 3 days, but he only alerted his family about it today. He has no other signs and symptoms associated with this pain. He denies any chest pain, shortness of breath, palpitation, lower extremity swelling, nausea, vomiting, diaphoresis or abdominal discomfo rt. He denies any other recent illnesses. Upon presentation to the emergency room, he is hemodynamically stable. His initial workup included c ardiac enzymes with troponin of 0.151 and a BNP of 807. His BNP has improved from his last hospitali zation when he had a BNP of over 2500. Cardiac enzymes are elevated, but it is unclear if these hui use of his recent heart catheterization or not. Nevertheless, he received one dose of therapeutic Lo venox in the emergency room as the ER physician was concerned about him having a non-ST elevation MT. He is now being admitted for further workup and evaluation. He would really like to keep his appointment for the aortic valve replacement on the 02/03 that is 2 days from now. If necessary, he is requesting a hospital to hospital transfer, so that he is able to keep his appointment. PAST MEDICAL HISTORY: 1. Ischemic cardiomyopathy with EF 15%-20%. 2. Hypertension. 3. Diabetes mellitus type 2. 4. Severe aortic stenosis. 5. Severe multivessel coronary artery disease, status post cardiac catheterization earlier this alison h. It is unclear which blood vessels were stented. 6. Severe diastolic dysfunction grade 3/3. 7. Dyslipidemia. PAST SURGICAL HISTORY: Carotid arterial stenting and then most recently coronary arterial stenting. ALLERGIES: No known medication allergies. FAMILY HISTORY: No significant family history of premature coronary artery disease or stroke. SOCIAL HISTORY: He denies any drug, tobacco or alcohol abuse[place] CURRENT MEDICATIONS: They need to be reconciled at this time. He was discharged on the different me dications from the hospital during his last stay, but since then he has been started on different set of medications from the [facility]. Among others, he is now on Plavix as well as Viagra for p ulmonary hypertension. These further need to be reconciled. REVIEW OF SYSTEMS: The following complete review of systems was negative, unless otherwise mentioned in the HPI or below: Constitutional: Weight loss or gain, ability to conduct usual activities. Sk in: Rash, itching. Eyes: Double vision, pain. ENT/Mouth: Nose bleeding, neck stiffness, pain, te nderness. Cardiovascular: Palpitations, dyspnea on exertion, orthopnea. Respiratory: Shortness of breath, wheezing, cough, hemoptysis, fever or night sweats. Gastrointestinal: Poor appetite, abdom inal pain, heartburn, nausea, vomiting, constipation, or diarrhea. Genitourinary: Urgency, frequenc y, dysuria, nocturia. Musculoskeletal: Pain, swelling. Neurologic/Psychiatric: Anxiety, depressio n. Allergy/Immunologic: Skin rash, bleeding tendency. It is negative except for those mentioned in the history and physical. LABORATORY DATA: His CBC shows hemoglobin 13.2, otherwise unremarkable. His coagulation studies are within normal limits. Serum chemistries show creatinine of 1.56, which is elevated for his baseline , which is normal. Troponin initial 0.151 with repeat troponin of 0.158. BNP of 807. Chest x-ray b y my review has no significant evidence of pulmonary vascular congestion or infiltrate. He actually underwent a CT angio of the thorax and abdomen to rule out aortic dissection and it is negative for t he same. PHYSICAL EXAMINATION: VITAL SIGNS: Most recently temperature 98.9, heart rate 70, respirations 15, saturating 100% on room air, and blood pressure 157/87. GENERAL: No acute distress. He is awake, alert, oriented x3. HEENT: Mucous membrane is moist and pink. No oropharyngeal exudate or erythema. Head is normocepha lic, atraumatic. Pupils are equal, reactive to light and accommodation. Extraocular movement intact . NECK: Supple without any lymphadenopathy, JVD or bruit. CHEST: Clear to auscultation without any wheezing, rales or rhonchi. He is tender to palpation and the central upper thoracic and lower cervical spinal area as well as some point tenderness to his rig ht shoulder over the scapular spine. CARDIOVASCULAR: Rate and rhythm is regular. He has a loud systolic murmur heard at the second hoff al border. ABDOMEN: Soft, nontender, and nondistended with positive bowel sounds. EXTREMITIES: Free of any cyanosis, clubbing, or edema. NEUROLOGIC: Nonfocal. SKIN: Free of any rashes or bruises. Feels warm and dry to touch. PSYCHIATRIC: Normal affect. IMPRESSION AND PLAN: 1. Upper back pain. I am not sure if this is a cardiac pain. It might be a musculoskeletal pain at this time, but the patient has risk factors in the form of recent cardiac stenting and elevated trop onins. He has been treated with 1 dose of therapeutic Lovenox in the emergency room at this time. W e will continue him on a daily dose of aspirin and restart his home medications. We will continue to trend serial cardiac enzymes. Cardiac enzyme elevation can also be secondary to his recent cardiac catheterization. I do not have his lab values available from his recent hospitalization in the [facility] area. At this time, we will request consultations with his stock handler, Dr. Patterson for furthe r evaluation. If stent closure or collapse is suspected; he may need a repeat angiogram. 2. Severe aortic stenosis. The patient is scheduled for aortic valve replacement in 2 days from now . If he is still admitted to this facility; we will try to transfer him hospital to hospital, so keesha t he does not miss his appointment. 3. Severe coronary artery disease, status post stenting a few days ago. Restart his medications onc e confirmed. He will be continued on aspirin, beta-esther, diuretics and NAYELI inhibitor. These medi cations further need to be confirmed. 4. Acute renal insufficiency. This is most likely secondary to recent cardiac invasive procedures. We will continue to monitor and avoid further nephrotoxic medications. We will avoid IV fluid resus citation given his poor cardiac function. 5. History of ischemic cardiomyopathy with systolic and diastolic congestive heart failure. At this time, we will continue to monitor him on telemetry unit. His echocardiogram done at [facility] was reviewed by myself and suggested EF of 35%-39%. At this time, I have advised him to continue t o wear the LifeVest until told otherwise by the stock handler in [place]. Resume home medications as above. 6. Code status: FULL CODE. 7. Deep venous thrombosis and gastrointestinal prophylaxis. DISPOSITION: Mr. Clinton is currently being admitted for pain in his shoulders and rule out non-ST sapna vation myocardial infarction/ACS. Further management will depend upon his clinical course and Cardio logy recommendations. Estimated length of stay at this time is at least 2-3 midnights.
[2018-02-01 02:38] LABS: Troponin I 0.216 ng/mL (< 0.028)
[2018-02-01 03:41] LABS: #Eosinphils 0.2 thou/uL (0.0-0.7); #Lymphocytes 0.9 thou/uL (1.20-3.40); #Monocytes 0.7 thou/uL (0.11-0.59); #Neutrophils 3.6 thou/uL (1.40-6.50); %Basophils 0.1 % (0.0-1.0); %Eosinophils 3.3 % (0.0-10.0); %Lymphocytes 17.1 % (21.0-51.0); %Monocytes 12.5 % (0.0-10.0); Hemoglobin 12.3 g/dL (14.0-18.0); Mean Corpuscular HGB CONC 35.2 g/dL (32.0-36.0); Mean Corpuscular Hemoglobin 32.2 pg (27.0-31.0); Mean Corpuscular Volume 91.5 fl (80.0-94.0); Mean Platelet Volume 7.3 fL (7.4-10.4); Platelet Count 159 thou/uL (130-400); RBC Distribution Width 14.7 % (11.5-14.5); Red Blood Cell (RBC) Count 3.83 mill/uL (4.70-6.10); White Blood Cell (WBC) Count 5.3 thou/uL (4.8-10.8)
[2018-02-01 04:03] LABS: Anion Gap 14 mmol/L (10-20); BUN (Urea Nitrogen) 27 mg/dL (8.4-25.7); Calc. Creatinine Clearance 0 mL/min (70-130); Calcium 9.1 mg/dL (7.8-10.44); Carbon Dioxide 21 mmol/L (23-31); Chloride 104 mmol/L (98-107); Estimated GFR-MDRD 63; Glucose 116 mg/dL (83-110); Potassium 3.8 mmol/L (3.5-5.1); Sodium 135 mmol/L (136-145)
[2018-02-01] MEDS ORDERED: Aspirin 325 mg Enteric Coated Tablet PO SCH (09:00)
[2018-02-01] MEDS ORDERED: Enoxaparin Sodium 40 MG/0.4 ML SYRINGE SC SCH (09:00)
[2018-02-01 09:11] VITALS: BMI 25.9
[2018-02-01] MEDS: Famotidine 20 MG TAB PO SCH (09:26)
[2018-02-01] MEDS: Furosemide 20 MG TAB PO SCH (09:26)
[2018-02-01] MEDS: Rosuvastatin 20 MG TAB PO SCH (09:27)
[2018-02-01] MEDS: Clopidogrel Bisulfate 75 MG TAB PO SCH (09:27)
[2018-02-01] MEDS ORDERED: Enoxaparin Sodium 80 MG/0.8 ML SYRINGE SC SCH ×2 (11:45→21:00)
[2018-02-01 14:03] LABS: Hemoglobin 13.8 g/dL (14.0-18.0); Platelet Count 186 thou/uL (130-400)
--- NOTE | 2018-02-01 18:01 | PDOC.PN ---
- Subjective Encounter Start Date: 02/01/18 Encounter Start Time: 17:45 Subjective: f/u for back pain and elevated troponin after recent heart cath with stents -: x 2. Overall feels ok. No back pain, ambulated 180' today. No SOB, -: cough or fever. - Objective MAR Reviewed: Yes Vital Signs & Weight: Vital Signs (12 hours) Temp Pulse Resp BP Pulse Ox 02/01/18 16:30 98.5 F 81 16 137/83 100 02/01/18 12:20 97.6 F 73 18 105/55 L 100 02/01/18 09:08 97.9 F 70 18 137/61 100 02/01/18 09:05 97.9 F 70 18 100 Weight Weight 161 lb 1.6 oz Result Diagrams: 02/01/18 13:46 02/01/18 01:48 Additional Labs: Laboratory Tests 12/25/17 01/31/18 01/31/18 01:09 20:02 20:02 Hgb 13.2 L Creatinine Troponin I 0.151 H B-Natriuretic Peptide 2707.9 H 01/31/18 01/31/18 01/31/18 20:02 20:02 23:21 Hgb Creatinine 1.56 H Troponin I 0.158 H B-Natriuretic Peptide 807.6 H 02/01/18 02/01/18 01:48 01:50 Hgb 12.3 L Creatinine Troponin I 0.216 H B-Natriuretic Peptide Radiology Reviewed by me: Yes (CT chest dissection protocol - negative) EKG Reviewed by me: Yes (Tele - SR) Phys Exam - Physical Examination Constitutional: NAD HEENT: PERRLA, moist MMs, sclera anicteric, oral pharynx no lesions Neck: no nodes, no JVD, supple Respiratory: no wheezing, no rales, no rhonchi, clear to auscultation bilateral II/ CHAD RUSB S1, S2 Cardiovascular: RRR, no rub, gallop Gastrointestinal: soft, non-tender, no distention, positive bowel sounds Musculoskeletal: no edema, pulses present Neurological: non-focal, normal sensation, moves all 4 limbs Psychiatric: normal affect, A&O x 3 Skin: no rash, normal turgor, cap refill <2 seconds Dx/Plan (1) Back pain Code(s): M54.9 - DORSALGIA, UNSPECIFIED Status: Acute Qualifiers: Back pain location: thoracic back pain Comment: Musculoskeletal in origin, supportive care (2) Aortic stenosis, severe Code(s): I35.0 - NONRHEUMATIC AORTIC (VALVE) STENOSIS Status: Chronic Comment: Plan for AVR in [place], 02/03/18 (3) CAD (coronary artery disease) Code(s): I25.10 - ATHSCL HEART DISEASE OF [place] CORONARY ARTERY W/O ANG PCTRS Status: Chronic Qualifiers: Comment: S/P cardiac stent placement x 2, continue ASA/Plavix, Coreg and Crestor (4) DM type 2 (diabetes mellitus, type 2) Status: Chronic Qualifiers: Comment: Continue Glyburide 5mg BID, ISS, serial accuchecks (5) Ischemic cardiomyopathy Code(s): I25.5 - ISCHEMIC CARDIOMYOPATHY Status: Chronic Comment: EF 15-20% , medical mgmt, LifeVest for home - Plan 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
[2018-02-01] MEDS ORDERED: Dextrose 50% Abboject 50 ML SYRINGE SLOW IVP PRN (18:06)
[2018-02-01] MEDS ORDERED: Dextrose 5% in Water 1,000 ML IV PRN (18:06)
[2018-02-01] MEDS ORDERED: HumaLOG 300 UNITS/3 ML VIAL SC PRN ×2 (18:06)
--- NOTE | 2018-02-01 19:04 | CON ---
DATE OF CONSULTATION: 02/01/2018 HISTORY OF PRESENT ILLNESS: The patient is a 77-year-old gentleman who presented with back discomfort. The patient has a long history of coronary artery disease and severe ischemic cardiomyopathy. The patient previously underwent a cardiac catheterization revealed him to have a severe decrease in left systolic function with estimated ejection fraction 10%-15%. He was found to have severe coronary artery disease. He was felt to be a poor candidate for coronary bypass graft surgery. He subsequently was referred and also found to have a severe aortic stenosis, referred for possible TAVR. Prior to this procedure, the patient apparently has had several stents placed. He is scheduled to undergo a TAVR procedure this week. The patient presented with back discomfort. He states for 2 days prior to admission, he had persistent back discomfort. He states depending on the position, that his back discomfort would ease or worsen. The patient denies having any present back discomfort. The patient denies having any chest discomfort. PAST MEDICAL HISTORY: 1. Coronary artery disease. 2. Ischemic cardiomyopathy. 3. Hypertension. 4. Aortic stenosis. PAST SURGICAL HISTORY: Carotid artery stenting. SOCIAL HISTORY: Nonsmoker. FAMILY HISTORY: No strong family history of heart disease. ALLERGIES: No known drug allergies. MEDICATIONS: See nursing list. REVIEW OF SYSTEMS: Ten points is unremarkable except for the back discomfort. He denies having any chest pain, palpitations or dyspnea. PHYSICAL EXAMINATION: GENERAL: This is an elderly gentleman in no acute distress. VITAL SIGNS: Blood pressure 105/55. NECK: Showed no jugular venous distention. LUNGS: Clear to auscultation. HEART: Regular rate and rhythm with a normal S1, S2 with a 3/6 systolic murmur. ABDOMEN: Nondistended. EXTREMITIES: No edema. SKIN: Warm and dry. NEUROLOGIC: Nonfocal. VASCULAR: Radial pulses 2+. LABORATORY DATA: Sodium 135, potassium 3.8, chloride 104, bicarbonate 21, BUN 27, creatinine 1.12. Troponin is 0.216. BNP is 807. White blood cell count was 5.3, hemoglobin 12.3, hematocrit 35.1 and platelets are 159. INR was 1.2. His EKG revealed normal sinus rhythm with left ventricular hypertrophy, ST-T wave abnormality suggestive of ischemia. IMPRESSION: 1. Back discomfort. 2. History of percutaneous transluminal coronary angioplasty and stent placement. 3. History of multivessel coronary artery disease. 4. History of severe aortic stenosis. 5. Severe cardiomyopathy. 6. Hypertension. This gentleman presents with persistent back discomfort. His cardiac enzymes are unremarkable. It is unlikely this discomfort is an anginal equivalent. We will follow this patient with you through his hospitalization . NEFTALI
[2018-02-01] MEDS: glyBURIDE 5 MG TAB PO SCH (20:51)
[2018-02-01] MEDS: Carvedilol 6.25 MG TAB PO SCH (20:51)
[2018-02-02 03:20] VITALS: TEMP 98.7
[2018-02-02 08:02] LABS: CKMB 2.6 ng/mL (0-6.6)
[2018-02-02] MEDS ORDERED: Aspirin 81 mg Enteric Coated Tablet PO SCH (09:00)
[2018-02-02] MEDS ORDERED: Citalopram 20 MG TAB PO SCH (09:00)
[2018-02-02] MEDS ORDERED: Enoxaparin Sodium 80 MG/0.8 ML SYRINGE SC SCH (09:00)
[2018-02-02] MEDS ORDERED: Enoxaparin Sodium 40 MG/0.4 ML SYRINGE SC SCH (09:00)
[2018-02-02] MEDS ORDERED: Hydrochlorothiazide 25 MG TAB PO SCH (09:00)
--- NOTE | 2018-02-02 09:05 | PRG ---
DATE OF SERVICE: 02/02/2018 HISTORY: Mr. Clinton is doing well, no current complaints of back pain, chest pain, shortness of breat h or other associated symptoms. He was recently admitted for troponin of 0.2. His CK-MB was normal. He recently underwent PCI at [facility] in [place]. PHYSICAL EXAMINATION: VITAL SIGNS: Blood pressure 130/62, pulse 81, temperature 98.7. LUNGS: Clear to auscultation. CARDIAC: Regular rate and rhythm. ABDOMEN: Soft, nontender, nondistended. EXTREMITIES: No edema. IMPRESSION: 1. Back pain. 2. Elevated troponin. 3. Severe coronary artery disease, status post stent placement. 4. Severe aortic stenosis. RECOMMENDATIONS: Mr. Clinton appears to be doing well. He has no current complaints. He is scheduled for TAVR tomorrow and would like to keep his appointment. I did speak with Dr. Maciel Banks, his roll wrapper in [place]. From my standpoint, he is okay to discharge home.
[2018-02-02] MEDS: glyBURIDE 5 MG TAB PO SCH (09:27)
[2018-02-02] MEDS: Furosemide 20 MG TAB PO SCH (09:27)
[2018-02-02] MEDS: Carvedilol 6.25 MG TAB PO SCH (09:27)
[2018-02-02] MEDS: Clopidogrel Bisulfate 75 MG TAB PO SCH (09:27)
[2018-02-02] MEDS: Rosuvastatin 20 MG TAB PO SCH (09:27)
[2018-02-02] MEDS: Famotidine 20 MG TAB PO SCH (09:27)
[2018-02-02 10:44] VITALS: BP 135/69
--- NOTE | 2018-02-02 13:10 | DIS ---
DATE OF ADMISSION: 01/31/2018 DATE OF DISCHARGE: 02/02/2018 DISCHARGE DIAGNOSES: 1. Back pain, musculoskeletal in origin. 2. Severe aortic stenosis. 3. Severe coronary artery disease, status post cardiac stent placement x2. 4. Diabetes mellitus type 2, chronic. 5. Ischemic cardiomyopathy with ejection fraction of 15%-20%. CONSULTATION: Dr. Patterson with Cardiology Service. PERTINENT LABORATORY DATA AND X-RAY FINDINGS: Creatinine 1.12 with estimated GFR of 63, calcium 9.1, troponin I ranged between 0.151-0.216, BNP 808, previously 2708 on 12/25/2017. CBC showed hemoglobi n ranging between 12.3-13.8. CT of the chest with aortic dissection protocol showed no evidence of a neurysm or dissection. Portable chest x-ray dated 01/31/2018 showed no acute cardiopulmonary process . HOSPITAL COURSE: The patient was admitted to the telemetry unit after presented with upper back pain in the context of severe coronary artery disease, severe aortic stenosis and concern for potential a nginal equivalent. The patient was noted today with mild troponin elevation; however, no specific ev idence to suggest an acute coronary artery syndrome. The patient is status post cardiac stent placem ent x2 prior to admission and evaluated by the Cardiology Service during the hospital stay. The fercho ent remained clinically stable throughout the hospital course without evidence of acute coronary synd jose daniel with and/or acute arrhythmia or dysrhythmia. The patient with reproducible pain in the thoracic region and musculoskeletal region and ruled out for aortic dissection as stated previously. Current recommendations are to continue scheduled followup with his participant administrator in [place], [place] to procee d with TAVR on 02/03/2018. Overall, patient did remain clinically stable during the hospital course, tolerating regular oral intake, voiding appropriately and ambulating without assistance or difficult y. I have examined the patient at the time of discharge and discussed discharge planning, dispositio n as well as reviewed pertinent Radiology and laboratory studies. The patient and daughter verbalize d understanding and agreement and agreed for discharge on 02/02/2018. DISCHARGE MEDICATIONS: 1. Enteric coated aspirin 81 mg 1 tab p.o. daily. 2. Coreg 6.25 mg p.o. b.i.d. 3. Citalopram 20 mg p.o. daily. 4. Plavix 75 mg p.o. daily. 5. Glyburide 5 mg p.o. b.i.d. 6. Hydrochlorothiazide 25 mg p.o. daily. 7. Crestor 20 mg p.o. daily. FOLLOWUP: Patient will follow up with Radha Rivera within 7 days of discharge. The patient may f ollow up with Dr. Alexandru Patterson with [facility] Cardiology Service. The patient will follow u p with Dr. Maciel Banks in [place], [place] on 02/03/2018 for TAVR. CONDITION ON DISCHARGE: Fair. ACTIVITY: Ad augie. DIET: Heart healthy and ADA. CODE STATUS: FULL. DISPOSITION: Home 02/02/2018.
--- NOTE | 2018-03-19 15:30 | EKG ---
Test Reason : Blood Pressure : / mmHG Vent. Rate : 080 BPM Atrial Rate : 080 BPM P-R Int : 192 ms QRS Dur : 126 ms QT Int : 398 ms P-R-T Axes : 040 035 242 degrees QTc Int : 459 ms Normal sinus rhythm Left ventricular hypertrophy with QRS widening and repolarization abnormality Abnormal ECG Similar to 25-DEC-2017 Confirmed by LIZ HERNANDEZ ([id number]), supervising editor trailer JADEN FINE ([id number]) on 03/19/2018 3:30:39 PM Referred By: Confirmed By:LIZ HERNANDEZ
== END 2018-02-02 11:16 | disposition home or self-care (01) | DRG 552 ==
LOC: ERS 19:49 → ERHOLD 23:00 → 2NO 02-01 08:39
PROVIDERS: ADMIT Internal Medicine; ATTEND Internal Medicine
DX: M54.6 Pain in thoracic spine (principal); I35.0 Nonrheumatic aortic (valve) stenosis; I25.5 Ischemic cardiomyopathy; E11.9 Type 2 diabetes mellitus without complications; I25.10 Atherosclerotic heart disease of native coronary artery without angina pectoris; Z95.5 Presence of coronary angioplasty implant and graft; E78.5 Hyperlipidemia, unspecified
CPT/HCPCS: 36415; 36416; 71045; 71275; 80048; 82553; 83880; 84484; 85025; 85610; 85730; 93005; 96360; 96372; J1650

== ENCOUNTER 2018-03-16 16:11 | Emergency (ER) | payer MEDICARE ==
--- NOTE | 2018-03-16 17:15 | RAD ---
AP PELVIS: 03/16/18 HISTORY: Fall with injury to pelvis. Pelvis appears intact. Both hips appear intact. Mild degenerative changes are seen at both hips. IMPRESSION: No acute fracture identified. POS: CHRIS
--- NOTE | 2018-03-16 17:16 | RAD ---
LEFT HIP: 03/16/18 Two views. HISTORY: Fall with injury to hip. FINDINGS/IMPRESSION: Mild degenerative changes are noted. No evidence of acute fracture identified. POS: ERASMO
== END 2018-03-16 17:30 | disposition home or self-care (01) ==
LOC: ERS 16:11
DX: S70.02XA Contusion of left hip, initial encounter (principal); F41.9 Anxiety disorder, unspecified; F17.210 Nicotine dependence, cigarettes, uncomplicated; I11.0 Hypertensive heart disease with heart failure; I50.9 Heart failure, unspecified; E11.39 Type 2 diabetes mellitus with other diabetic ophthalmic complication; H40.9 Unspecified glaucoma; W18.30XA Fall on same level, unspecified, initial encounter
CPT/HCPCS: 72170

== ENCOUNTER 2018-04-14 11:45 | Emergency (ER) | payer MEDICARE | END 2018-04-14 13:11 | disposition home or self-care (01) | LOC: ERS 11:45 | DX: S05.31XA Ocular laceration without prolapse or loss of intraocular tissue, right eye, initial encounter (principal); E11.9 Type 2 diabetes mellitus without complications; I50.9 Heart failure, unspecified; I11.0 Hypertensive heart disease with heart failure; F41.9 Anxiety disorder, unspecified; F17.220 Nicotine dependence, chewing tobacco, uncomplicated; Z79.82 Long term (current) use of aspirin; Z79.899 Other long term (current) drug therapy; X58.XXXA Exposure to other specified factors, initial encounter | CPT/HCPCS: 99282 ==

== ENCOUNTER 2019-03-05 12:54 | Inpatient (IN) | payer MEDICARE ==
[2019-03-05 13:26] LABS: Hemoglobin 16.1 g/dL (14.0-18.0); Mean Corpuscular HGB CONC 35.6 g/dL (32.0-36.0); Mean Corpuscular Hemoglobin 33.6 pg (27.0-31.0); Mean Corpuscular Volume 94.4 fL (78.0-98.0); Mean Platelet Volume 7.7 fL (7.4-10.4); Platelet Count 152 thou/uL (130-400); RBC Distribution Width 12.9 % (11.5-14.5); Red Blood Cell (RBC) Count 4.78 mill/uL (4.70-6.10); White Blood Cell (WBC) Count 8.8 thou/uL (4.8-10.8)
--- NOTE | 2019-03-05 13:36 | RAD ---
Exam: Chest one view HISTORY:Cough. Comparison: 01/31/2018 FINDINGS: Cardiac silhouette:Cardiomegaly. Coronary artery calcification, unchanged. Pulmonary vessels: Normal Costophrenic angles: Clear LUNGS: No masses or consolidation. Pneumothorax: None Osseous abnormalities: None IMPRESSION: No acute cardiopulmonary process.
[2019-03-05 13:42] LABS: ALT (SGPT) 19 U/L (8-55); AST (SGOT) 51 U/L (5-34); Albumin 4.1 g/dL (3.4-4.8); Alkaline Phosphatase 55 U/L (40-150); Anion Gap 15 mmol/L (10-20); BUN (Urea Nitrogen) 26 mg/dL (8.4-25.7); Bilirubin, Total 1.6 mg/dL (0.2-1.2); Calc. Creatinine Clearance 0 mL/min (70-130); Calcium 9.3 mg/dL (7.8-10.44); Carbon Dioxide 21 mmol/L (23-31); Chloride 102 mmol/L (98-107); Estimated GFR-MDRD 38; Globulin 2.7 g/dL (2.4-3.5); Glucose 350 mg/dL (83-110); Potassium 4.1 mmol/L (3.5-5.1); Protein, Total 6.8 g/dL (5.8-8.1); Sodium 134 mmol/L (136-145)
[2019-03-05 13:48] LABS: Band 16 % (5-11); Lymphocytes 2 % (21-51); MDiff Complete? YES; Metamyelocyte 1 % (0-0); Monocytes 1 % (0-10); Neutrophil 78 % (42-75); Platelet Morphology Comment Appears Adequate; RBC Morphology Normal; Reactive Lymphocytes 2 % (0-10)
[2019-03-05 13:54] LABS: CK (CPK) 1414 U/L (30-200); Lipase 17 U/L (8-78)
[2019-03-05] MEDS ORDERED: Metoclopramide HCl 10 MG TAB ONE (14:20)
[2019-03-05] MEDS ORDERED: Insulin Regular 300 UNITS/3 ML VIAL ONE (14:21)
[2019-03-05 14:27] LABS: CKMB 19.7 ng/mL (0-6.6)
[2019-03-05 14:33] LABS: Phosphorus 3.5 mg/dL (2.3-4.7)
[2019-03-05] MEDS ORDERED: Aspirin Chewable 81 MG TAB ONE (14:39)
[2019-03-05] MEDS ORDERED: Enoxaparin Sodium 80 MG/0.8 ML SYRINGE ONE (14:39)
[2019-03-05] MEDS ORDERED: Nitroglycerin 2% Ointment 1 INCH/1 GM Packet ONE (14:39)
[2019-03-05 15:19] LABS: Base Excess-Venous 0.4 mmol/L (-2.0 to 3.0); Bicarbonate (HCO3v) 26.6 mmol/L (22.0-28.0); CO2 Tension (PvCO2) 47.3 mmHg (40.0-50.0); Chloride 102 mmol/L (98-107); O2 Tension (PvO2) 23.7 mmHg (35.0-45.0); Potassium 4.1 mmol/L (3.5-5.1); Sodium 137 mmol/L (138-145); pH (Venous) 7.358 (7.320-7.430); vO2 Saturation-calc 38.7 % (60.0-85.0)
[2019-03-05] MEDS ORDERED: HYDROcodone/Acetaminophen 5/325 mg Tablet PO PRN (15:22)
[2019-03-05] MEDS ORDERED: Guaifenesin DM 100-10/5 ML UDCUP PO PRN (15:22)
[2019-03-05] MEDS ORDERED: Ondansetron PF 4 MG/2 ML Vial IVP PRN (15:22)
[2019-03-05] MEDS ORDERED: Acetaminophen 325 MG TAB PO PRN (15:22)
[2019-03-05] MEDS ORDERED: Zolpidem Tartrate 5 MG TAB PO PRN (15:22)
[2019-03-05] MEDS ORDERED: HumaLOG 300 UNITS/3 ML VIAL SC PRN (15:28)
[2019-03-05] MEDS ORDERED: Dextrose 50% Abboject 50 ML SYRINGE SLOW IVP PRN (15:28)
[2019-03-05] MEDS ORDERED: Dextrose 5% in Water 1,000 ML IV PRN (15:28)
[2019-03-05] MEDS ORDERED: Morphine 4 MG/ML VIAL SLOW IVP PRN (15:32)
--- NOTE | 2019-03-05 15:33 | PDOC.EVN ---
Event Note - Event Note Event Note: H&P SUMMARY #[id number]
--- NOTE | 2019-03-05 15:54 | HP ---
CHIEF COMPLAINT: Syncopal falls. HISTORY OF PRESENT ILLNESS: This is a 78-year-old male, admitted to the hospital, brought in by his son, recurrent falls, very weak, as well as syncope. The patient states that otherwise he feels no complaints or issues. Denies any alleviating or aggravating factors. No other associated symptoms or complaints. The patient's past medical history, pertinent positive for a valve replacement, which occurred last year at [facility] in [facility] as well as coronary artery disease and significant uncontrolled diabetes mellitus. The patient otherwise has no other issues or complaints. Seen and examined in the ER. Son at bedside. All questions answered. REVIEW OF SYSTEMS: All systems reviewed, pertinent positive in HPI, otherwise negative. ALLERGIES: NO KNOWN DRUG ALLERGIES. PAST MEDICAL HISTORY: Positive for hypertension, hyperlipidemia, diabetes mellitus type 2, coronary artery disease, heart disease, and aortic valve replacement. FAMILY HISTORY: Positive for hypertension, hyperlipidemia, and diabetes. SOCIAL HISTORY: Nondrinker and nonsmoker. PHYSICAL EXAMINATION: VITAL SIGNS: Blood pressure 128/73, pulse of 80, O2 saturation 96% on room air, temperature 97.9, and respiratory rate of 14. GENERAL: The patient is lying in bed. No acute discomfort. HEENT: Pupils equal, round, and reactive to light and accommodation. Extraocular muscles intact. Oral cavity moist and pink. NECK: Supple, mobile, nontender. Thyroid appreciated. PULMONARY: Clear to auscultation bilaterally. No rales, rhonchi, or wheezing appreciated. CARDIOVASCULAR: Regular rate and rhythm. S1 and S2. No murmurs, rubs, or gallops appreciated. ABDOMEN: Positive bowel sounds. Soft, nontender, nondistended. EXTREMITIES: 2+ peripheral pulses. Trace pitting edema in bilateral lower extremities. NEUROLOGIC: Cranial nerves 2 through 12 intact. Alert and oriented x3. LABORATORY DATA: Reviewed. IMAGING STUDIES: Reviewed. ASSESSMENT AND PLAN: 1. Fpd-VQ-jolivyxuy myocardial infarction. 2. Acute kidney injury on chronic kidney disease. 3. Hypertension. 4. Diabetes mellitus type 2. 5. Hyperlipidemia. 6. Syncope. PLAN: At this point in time, we will admit the patient to Internal Medicine Team to the ICU. Consult Cardiology. We will give insulin drip for diabetes mellitus type 2. The patient takes aspirin and Plavix at home. We will continue that. The patient has received full-dose Lovenox in the ER. We will continue Lovenox 80 mg subcu b.i.d. for now. Beta-esther to be continued as well. Morphine for pain, p.r.n. oxygen. Echocardiogram, troponin trends. We will keep the patient n.p.o. past midnight in case the patient has to go to cardiac cath. Otherwise, we will give a cardiac diet prior to midnight. Labs in the morning. Case and plan discussed with the patient and son at length. They understand and agree with this plan. Job ID: [id number]
[2019-03-05 16:43] LABS: Troponin I 5.594 ng/mL (< 0.028)
[2019-03-05 17:07] VITALS: BMI 28.3
--- NOTE | 2019-03-05 19:03 | CON ---
DATE OF CONSULTATION: HISTORY OF PRESENT ILLNESS: The patient is a very pleasant 78-year-old gentleman, who presented after having several falls and was noted to have an elevated troponin level. The patient has a long history of coronary artery disease. He has previously underwent a cardiac catheterization in November 2017,during which he was found to have a 90% mid LAD lesion, 90% diagonal lesion, 70% circumflex lesion and an obtuse marginal branch had an 80% lesion. The right coronary artery had a 100% occlusion. The patient also had severe aortic stenosis. He subsequently underwent a TAVR. He has been treated medically. He denies having any stent placement. The patient was in usual state of health when a few days ago, he started having several falls. He did not lose consciousness. The patient presented to the emergency room and he was noted to have an elevated troponin level. The patient denied having any chest discomfort. The patient denies having any dyspnea. PAST MEDICAL HISTORY: 1. Coronary artery disease. 2. History of aortic stenosis. 3. Hypertension. 4. Dyslipidemia. 5. Diabetes mellitus. PAST SURGICAL HISTORY: None SOCIAL HISTORY: He is a nonsmoker. MEDICATIONS: See nursing list. FAMILY HISTORY: No strong family history of heart disease. PHYSICAL EXAMINATION: GENERAL: This is an obese gentleman, in no acute distress. VITAL SIGNS: Blood pressure of 141/79, heart rate was 82. NECK: Showed no jugular venous distention. LUNGS: Have scattered wheezes. HEART: Regular rate and rhythm. Normal S1 and S2. No murmurs. ABDOMEN: Distended. EXTREMITIES: Show trace edema. VASCULAR: Radial pulses are 2+. LABORATORY RESULTS: Revealed him to have a white blood cell count 8.8, hemoglobin 16.1, hematocrit 45.2, and platelets 152. Sodium is 134, potassium 4.1, chloride 102, bicarbonate 21, BUN 26, and creatinine 1.74. Troponin was 4.9. IMAGING DATA: EKG revealed him to have normal sinus rhythm with voltage criteria for left ventricular hypertrophy and ST-T wave abnormality suggestive of ischemia. IMPRESSION: 1. Non-Q-wave myocardial infarction. 2. History of transcatheter aortic valve replacement. 3. History of severe diffuse coronary artery disease. 4. History of ischemic cardiomyopathy. 5. Renal insufficiency. 6. Diabetes mellitus. PLAN: This gentleman presents after having several falls. The patient should be on once daily Lovenox. The patient was asymptomatic. We will check the patient's echocardiogram. Further recommendations to follow. Critical care note, 40 minutes. Job ID: [id number] MTDD
[2019-03-05 20:12] LABS: Critical Call Chem Troponin I RESULT DECREASING; Troponin I 4.946 ng/mL (< 0.028)
[2019-03-05] MEDS: Carvedilol 6.25 MG TAB PO SCH (20:57)
[2019-03-05] MEDS: Rosuvastatin 20 MG TAB PO SCH (20:57)
[2019-03-05] MEDS ORDERED: Enoxaparin Sodium 80 MG/0.8 ML SYRINGE SC SCH (21:00)
[2019-03-05] MEDS: Insulin Glargine 10 UNITS in Pre-Filled Syringe SC SCH (21:24)
[2019-03-06 05:37] LABS: Anion Gap 14 mmol/L (10-20); BUN (Urea Nitrogen) 33 mg/dL (8.4-25.7); Calc. Creatinine Clearance 50 mL/min (70-130); Calcium 8.9 mg/dL (7.8-10.44); Carbon Dioxide 23 mmol/L (23-31); Chloride 103 mmol/L (98-107); Estimated GFR-MDRD 51; Glucose 135 mg/dL (83-110); Potassium 3.7 mmol/L (3.5-5.1); Sodium 136 mmol/L (136-145)
[2019-03-06 05:39] LABS: #Lymphocytes 0.6 thou/uL (1.20-3.40); #Monocytes 0.9 thou/uL (0.11-0.59); #Neutrophils 5.5 thou/uL (1.40-6.50); %Basophils 0.1 % (0.0-1.0); %Eosinophils 0.1 % (0.0-10.0); %Lymphocytes 8.7 % (21.0-51.0); %Monocytes 13.4 % (0.0-10.0); %Neutrophils 77.8 % (42.0-75.0); Hemoglobin 14.7 g/dL (14.0-18.0); Mean Corpuscular Hemoglobin 32.4 pg (27.0-31.0); Mean Corpuscular Volume 95.4 fL (78.0-98.0); Mean Platelet Volume 7.9 fL (7.4-10.4); Platelet Count 161 thou/uL (130-400); RBC Distribution Width 12.9 % (11.5-14.5); Red Blood Cell (RBC) Count 4.54 mill/uL (4.70-6.10); White Blood Cell (WBC) Count 7.1 thou/uL (4.8-10.8)
[2019-03-06 05:47] LABS: Troponin I 5.084 ng/mL (< 0.028)
[2019-03-06] MEDS: Clopidogrel Bisulfate 75 MG TAB PO SCH (10:15)
[2019-03-06] MEDS: Hydrochlorothiazide 25 MG TAB PO SCH (10:15)
[2019-03-06] MEDS: Carvedilol 6.25 MG TAB PO SCH ×2 (10:15→21:59)
[2019-03-06] MEDS: Aspirin 81 mg Enteric Coated Tablet PO SCH (10:15)
--- NOTE | 2019-03-06 11:12 | PDOC.PN ---
- Subjective Encounter Start Date: 03/06/19 Encounter Start Time: 10:00 -: old records requested/rev Patient seen and examined. No new complaints. No overnight events - Objective MAR Reviewed: Yes Vital Signs & Weight: Vital Signs (12 hours) Temp BP 03/06/19 10:15 126/62 03/06/19 07:00 98.3 F 03/06/19 04:00 98.1 F 03/06/19 00:00 98.2 F Weight Weight 175 lb 14.862 oz Most Recent Monitor Data Heart Rate from ECG 76 NIBP 142/70 NIBP BP-Mean 94 Respiration from ECG 27 SpO2 100 I&O: 03/05/19 03/06/19 03/07/19 06:59 06:59 06:59 Intake Total 425 0 Output Total 500 0 Balance -75 0 Result Diagrams: 03/06/19 04:19 03/06/19 04:19 Additional Labs: Accuchecks 03/06/19 03/05/19 03/05/19 06:29 21:28 17:55 POC Glucose 133 H 163 H 129 H Radiology Reviewed by me: Yes (echo reviewed ) EKG Reviewed by me: Yes (nsr) Phys Exam - Physical Examination Constitutional: NAD HEENT: PERRLA, moist MMs, sclera anicteric Neck: no JVD, supple Respiratory: no wheezing, no rales, no rhonchi Cardiovascular: RRR, no rub SM+ Gastrointestinal: soft, non-tender, no distention, positive bowel sounds Musculoskeletal: no edema, pulses present Neurological: non-focal, normal sensation, moves all 4 limbs Lymphatic: no nodes Psychiatric: normal affect, A&O x 3 Skin: no rash, normal turgor Dx/Plan (1) NSTEMI (non-ST elevated myocardial infarction) Code(s): I21.4 - NON-ST ELEVATION (NSTEMI) MYOCARDIAL INFARCTION Status: Acute Comment: (2) Acute kidney injury Code(s): N17.9 - ACUTE KIDNEY FAILURE, UNSPECIFIED Status: Acute (3) Aortic stenosis, severe Code(s): I35.0 - NONRHEUMATIC AORTIC (VALVE) STENOSIS Status: Chronic Comment: S/P Recent transcatheter aortic valve replacement (4) CAD (coronary artery disease) Code(s): I25.10 - ATHSCL HEART DISEASE OF [place] CORONARY ARTERY W/O ANG PCTRS Status: Chronic Qualifiers: Comment: (5) Carotid arterial disease Code(s): I77.9 - DISORDER OF ARTERIES AND ARTERIOLES, UNSPECIFIED Status: Chronic Comment: prior h/o stents. (6) DM type 2 (diabetes mellitus, type 2) Status: Chronic Qualifiers: Comment: (7) HTN (hypertension) Code(s): I10 - ESSENTIAL (PRIMARY) HYPERTENSION Status: Chronic Qualifiers: Comment: (8) Ischemic cardiomyopathy Code(s): I25.5 - ISCHEMIC CARDIOMYOPATHY Status: Chronic Comment: EF 15-20% - Plan cont current plan of care, plan discussed w/ family * cardiology following * pt is on medical therapy * pt is stable and asymptomatic * further care will defer to cardiology * medication reviewed as below * symptomatic treatment. * I spoke with son and updated plan Review of Systems - Review of Systems ENT: negative: Ear Pain, Ear Discharge, Nose Pain, Nose Discharge, Nose Congestion, Mouth Pain, Mouth Swelling, Throat Pain, Throat Swelling, Other Respiratory: negative: Cough, Dry, Shortness of Breath, Hemoptysis, SOB with Excertion, Pleuritic Pain, Sputum, Wheezing Cardiovascular: negative: chest pain, palpitations, orthopnea, paroxysmal nocturnal dyspnea, edema, light headedness, other Gastrointestinal: negative: Nausea, Vomiting, Abdominal Pain, Diarrhea, Constipation, Melena, Hematochezia, Other Genitourinary: negative: Dysuria, Frequency, Incontinence, Hematuria, Retention , Other Musculoskeletal: negative: Neck Pain, Shoulder Pain, Arm Pain, Back Pain, Hand Pain, Leg Pain, Foot Pain, Other - Medications/Allergies Allergies/Adverse Reactions: Allergies Allergy/AdvReac Type Severity Reaction Status Date / Time No Known Drug Allergies Allergy Verified 12/25/17 04:37 Medications: Current Medications Acetaminophen (Tylenol) 650 mg PO Q4H PRN PRN Reason: Headache/Fever/Mild Pain (1-3) Hydrocodone Bitart/Acetaminophen ([place] 5/325) 1 tab PO Q4H PRN PRN Reason: Moderate Pain (4-6) Aspirin (Ecotrin) 81 mg PO DAILY [facility] Last Admin: 03/06/19 10:15 Dose: 81 mg Carvedilol (Coreg) 6.25 mg PO BID [facility] Last Admin: 03/06/19 10:15 Dose: 6.25 mg Clopidogrel Bisulfate (Plavix) 75 mg PO DAILY [facility] Last Admin: 03/06/19 10:15 Dose: 75 mg Dextrose/Water (Dextrose 50%) 25 gm SLOW IVP PRN PRN PRN Reason: Hypoglycemia Enoxaparin Sodium (Lovenox) 80 mg SC 1500 [facility] Glucagon (Glucagon) 1 mg IM PRN PRN PRN Reason: Hypoglycemia Guaifenesin/Dextromethorphan (Robitussin Dm) 15 ml PO Q4H PRN PRN Reason: Cough Hydrochlorothiazide (Hydrochlorothiazide) 25 mg PO DAILY [facility] Last Admin: 03/06/19 10:15 Dose: 25 mg Dextrose/Water (D5w) 1,000 mls @ 0 mls/hr IV .Q0M PRN PRN Reason: Hypoglycemia Insulin Glargine 10 units/ (Miscellaneous Medication) 0.1 mls @ 0 mls/hr SC [facility] Last Admin: 03/05/19 21:24 Dose: 0.1 mls Insulin Human Lispro (Humalog) 0 units SC .MILD SLIDING SCALE PRN PRN Reason: Mild Correctional Scale Insulin Human Lispro (Humalog) 0 units SC .BEDTIME SLIDING SC PRN PRN Reason: Bedtime Correctional Scale Morphine Sulfate (Morphine) 2 mg SLOW IVP Q4H PRN PRN Reason: Pain Ondansetron HCl (Zofran) 4 mg IVP Q6H PRN PRN Reason: Nausea/Vomiting Rosuvastatin Calcium (Crestor) 40 mg PO [facility] Last Admin: 03/05/19 20:57 Dose: 40 mg Zolpidem Tartrate (Ambien) 5 mg PO HSPRN PRN PRN Reason: Insomnia
[2019-03-06] MEDS ORDERED: Loratadine 10 MG TAB PO PRN (11:56)
[2019-03-06] MEDS ORDERED: Senokot S 8.6-50 MG TAB PO PRN (11:56)
[2019-03-06] MEDS ORDERED: Ondansetron ODT 4 MG TAB PO PRN (11:56)
[2019-03-06] MEDS ORDERED: Loperamide HCl 2 MG CAP PO PRN (11:56)
[2019-03-06] MEDS ORDERED: Artificial Tears 18 DROP/0.9 ML EA EYE PRN (11:56)
[2019-03-06] MEDS ORDERED: hydrALAZINE 20 MG/ML VIAL SLOW IVP PRN (11:56)
[2019-03-06] MEDS ORDERED: Diabetic Tussin 200 MG/10 ML UDCUP PO PRN (11:56)
[2019-03-06] MEDS ORDERED: Cepastat Lozenges 1 LOZ PO PRN (11:56)
[2019-03-06] MEDS ORDERED: Sodium Chloride 0.65% Nasal 44 ML BOT EA NARE PRN (11:56)
--- NOTE | 2019-03-06 15:54 | PRG ---
DATE OF SERVICE: 03/06/2019 SUBJECTIVE: Mr. Clinton is doing well. No current complaints. No chest pain, pressure, shortness of breath, or associated symptoms. His troponin peaked at 5. After review of his previous medical records, it appeared he underwent TAVR last year. There is no documentation of a stent placement. He did have a complete occlusion of the right coronary artery, in addition 90% stenosis of diagonal branch and circumflex artery. His LVEF did improve after TAVR placement. His symptoms also markedly improved. OBJECTIVE: GENERAL: Patient is a pleasant male, who is in no acute distress. The patient appears their stated age. VITAL SIGNS: Blood pressure 134/71, pulse 69, and temperature afebrile. NEUROLOGIC: The patient is alert and oriented x3 with no focal neurologic deficits. HEENT: Sclerae without icterus. Mouth has moist mucous membranes with normal pallor. NECK: No JVD. Carotid upstroke brisk. No bruits bilaterally. LUNGS: Clear to auscultation with unlabored respirations. BACK: No scoliosis or kyphosis. CARDIAC: Regular rate and rhythm with normal S1 and S2. No S3 or S4 noted. No significant rubs, murmurs, thrills, or gallops noted throughout the precordium. PMI is not displaced. There is no parasternal heave. ABDOMEN: Soft, nontender, nondistended. No peritoneal signs present. No hepatosplenomegaly. No abnormal striae. EXTREMITIES: 2+ femoral and 2+ dorsalis pedis pulses. No cyanosis, clubbing, or edema. SKIN: No gross abnormalities. PERTINENT LABORATORY DATA: Hemoglobin 14.7 and creatinine 1.35. IMPRESSION: 1. Elevated troponin. 2. Recent fall. 3. Severe coronary artery disease. 4. Status post transcatheter aortic valve replacement. RECOMMENDATIONS: From a CV standpoint, Mr. Clinton stable. At this point, given a few options for revascularization given the above, we would continue with medical therapy. He had no current symptoms suggesting angina. He states he was weak and fell. There was no syncope or presyncope. Continue with Coreg in addition to Plavix and aspirin. Job ID: [id number]
--- NOTE | 2019-03-06 16:31 | CON ---
DATE OF CONSULTATION: HISTORY OF PRESENT ILLNESS: Mr. Clinton is a very pleasant 78-year-old gentleman, followed by Dr. Patterson. Dr. Patterson tells me that since Mr. Clinton's , he has not really had any desire to live. A year ago, he underwent PAVR at [facility] in [place]. He has a history of coronary stenting in the past. He was admitted with extreme weakness after his son brought him to the emergency room. He says he is feeling much better. He was not hypotensive on presentation. He denied having any chest pain on presentation. He has been falling according to his son at home. His son had him start walking with a walker lately. He was walking with a cane prior to that. PAST MEDICAL HISTORY: Remarkable for: 1. Diabetes. 2. Hypertension. 3. Lipid disorder. 4. Status post aortic valve replacement. FAMILY HISTORY: Positive for hypertension, lipid disorder, and diabetes. SOCIAL HISTORY: He is a nonsmoker, nondrinker, nondrug user. ALLERGIES: HE HAS NO DRUG ALLERGIES. REVIEW OF SYSTEMS: 10-point review of systems otherwise negative. PHYSICAL EXAMINATION: VITAL SIGNS: Heart rate 72, blood pressure 134/71, respiratory rate is 21, and oximetry is 100%. HEENT: Pupils are equal. Sclerae are anicteric. NECK: Supple. No lymphadenopathy. LUNGS: Clear. HEART: Regular rhythm. S1 and S2 are normal. ABDOMEN: Soft and nontender. EXTREMITIES: Without clubbing, cyanosis, or edema. LABORATORY DATA: White count 7.1, hemoglobin 14.7, and platelets 161. Sodium 136, potassium 3.7, chloride 103, bicarb 23, BUN 33, and creatinine 1.35. Troponin was 4.9 at 7 last night, 5.0 this morning. IMPRESSION: 1. [id number]-ifcdajuhb myocardial infarction. 2. History of percutaneous aortic valve replacement within the last year. 3. Obesity. 4. Deconditioning and weakness, and a history suggestive of reactive depression with loss of his . PLAN: We will await automotive dismantler's input. No cardiac catheterization is planned for today, so diet was ordered for him. We will be happy to follow the other physicians caring for him. I met with his son and answered all of his questions. TIME SPENT: This is a 50-minute consult, 50% of the time was spent on the unit coordinating care. Job ID: [id number]
[2019-03-06] MEDS: Enoxaparin Sodium 80 MG/0.8 ML SYRINGE SC SCH (17:30)
[2019-03-06] MEDS: Rosuvastatin 20 MG TAB PO SCH (22:00)
[2019-03-06] MEDS: Insulin Glargine 10 UNITS in Pre-Filled Syringe SC SCH (22:00)
[2019-03-07 06:48] LABS: Anion Gap 13 mmol/L (10-20); BUN (Urea Nitrogen) 36 mg/dL (8.4-25.7); Calc. Creatinine Clearance 62 mL/min (70-130); Calcium 8.9 mg/dL (7.8-10.44); Carbon Dioxide 23 mmol/L (23-31); Chloride 103 mmol/L (98-107); Estimated GFR-MDRD 65; Glucose 166 mg/dL (83-110); Potassium 3.6 mmol/L (3.5-5.1); Sodium 135 mmol/L (136-145)
[2019-03-07] MEDS: Hydrochlorothiazide 25 MG TAB PO SCH (08:51)
[2019-03-07] MEDS: Lisinopril 2.5 MG TAB PO SCH (08:52)
[2019-03-07] MEDS: Citalopram 20 MG TAB PO SCH (08:52)
[2019-03-07] MEDS: Aspirin 81 mg Enteric Coated Tablet PO SCH (08:53)
[2019-03-07] MEDS: Clopidogrel Bisulfate 75 MG TAB PO SCH (08:53)
[2019-03-07] MEDS: Carvedilol 6.25 MG TAB PO SCH ×2 (08:53→20:32)
--- NOTE | 2019-03-07 11:13 | PDOC.PN ---
- Subjective Encounter Start Date: 03/07/19 Encounter Start Time: 08:20 Patient seen and examined. No new complaints. No overnight events feels mild weakness but no chest pain or dyspnea - Objective MAR Reviewed: Yes Vital Signs & Weight: Vital Signs (12 hours) Temp Pulse Resp BP Pulse Ox 03/07/19 07:05 97.8 F 73 18 167/76 H 95 03/07/19 03:20 98.7 F 72 16 145/69 H 96 Weight Weight 175 lb 14.862 oz Most Recent Monitor Data Heart Rate from ECG 70 NIBP 146/88 NIBP BP-Mean 107 Respiration from ECG 22 SpO2 100 I&O: 03/06/19 03/07/19 03/08/19 06:59 06:59 06:59 Intake Total 425 345 Output Total 500 300 Balance -75 45 Result Diagrams: 03/06/19 04:19 03/07/19 06:04 Additional Labs: Accuchecks 03/07/19 03/06/19 03/06/19 05:11 20:32 17:11 POC Glucose 155 H 265 H 139 H 03/06/19 12:43 POC Glucose 130 H EKG Reviewed by me: Yes Phys Exam - Physical Examination Constitutional: NAD HEENT: PERRLA, moist MMs, sclera anicteric Neck: no JVD, supple Respiratory: no wheezing, no rales, no rhonchi Cardiovascular: RRR, no rub Gastrointestinal: soft, non-tender, no distention, positive bowel sounds Musculoskeletal: no edema, pulses present Neurological: non-focal, normal sensation, moves all 4 limbs Lymphatic: no nodes Psychiatric: normal affect, A&O x 3 Skin: no rash, normal turgor Dx/Plan (1) NSTEMI (non-ST elevated myocardial infarction) Code(s): I21.4 - NON-ST ELEVATION (NSTEMI) MYOCARDIAL INFARCTION Status: Acute Comment: (2) Acute kidney injury Code(s): N17.9 - ACUTE KIDNEY FAILURE, UNSPECIFIED Status: Acute (3) Aortic stenosis, severe Code(s): I35.0 - NONRHEUMATIC AORTIC (VALVE) STENOSIS Status: Chronic Comment: S/P Recent transcatheter aortic valve replacement (4) CAD (coronary artery disease) Code(s): I25.10 - ATHSCL HEART DISEASE OF [place] CORONARY ARTERY W/O ANG PCTRS Status: Chronic Qualifiers: Comment: (5) Carotid arterial disease Code(s): I77.9 - DISORDER OF ARTERIES AND ARTERIOLES, UNSPECIFIED Status: Chronic Comment: prior h/o stents. (6) DM type 2 (diabetes mellitus, type 2) Status: Chronic Qualifiers: Comment: (7) HTN (hypertension) Code(s): I10 - ESSENTIAL (PRIMARY) HYPERTENSION Status: Chronic Qualifiers: Comment: (8) Ischemic cardiomyopathy Code(s): I25.5 - ISCHEMIC CARDIOMYOPATHY Status: Chronic Comment: EF 15-20% - Plan cont current plan of care * add lisinopril 2.5 mg po daily * cardiology recommends medical therapy * medication reviewed as below * symptomatic treatment. * discharge soon Review of Systems - Review of Systems Constitutional: weakness. negative: fever, chills, sweats, malaise, other ENT: negative: Ear Pain, Ear Discharge, Nose Pain, Nose Discharge, Nose Congestion, Mouth Pain, Mouth Swelling, Throat Pain, Throat Swelling, Other Respiratory: negative: Cough, Dry, Shortness of Breath, Hemoptysis, SOB with Excertion, Pleuritic Pain, Sputum, Wheezing Cardiovascular: negative: chest pain, palpitations, orthopnea, paroxysmal nocturnal dyspnea, edema, light headedness, other Gastrointestinal: negative: Nausea, Vomiting, Abdominal Pain, Diarrhea, Constipation, Melena, Hematochezia, Other Genitourinary: negative: Dysuria, Frequency, Incontinence, Hematuria, Retention , Other Musculoskeletal: negative: Neck Pain, Shoulder Pain, Arm Pain, Back Pain, Hand Pain, Leg Pain, Foot Pain, Other Skin: negative: Rash, Lesions, Last, Bruising, Other - Medications/Allergies Allergies/Adverse Reactions: Allergies Allergy/AdvReac Type Severity Reaction Status Date / Time No Known Drug Allergies Allergy Verified 12/25/17 04:37 Medications: Current Medications Acetaminophen (Tylenol) 650 mg PO Q4H PRN PRN Reason: Headache/Fever/Mild Pain (1-3) Hydrocodone Bitart/Acetaminophen ([place] 5/325) 1 tab PO Q4H PRN PRN Reason: Moderate Pain (4-6) Artificial Tears (Tears [place]) 2 drop EA EYE PRN PRN PRN Reason: Dry Eyes Aspirin (Ecotrin) 81 mg PO DAILY [facility] Last Admin: 03/07/19 08:53 Dose: 81 mg Carvedilol (Coreg) 6.25 mg PO BID [facility] Last Admin: 03/07/19 08:53 Dose: 6.25 mg Citalopram Hydrobromide (Celexa) 20 mg PO DAILY [facility] Last Admin: 03/07/19 08:52 Dose: 20 mg Clopidogrel Bisulfate (Plavix) 75 mg PO DAILY [facility] Last Admin: 03/07/19 08:53 Dose: 75 mg Dextrose/Water (Dextrose 50%) 25 gm SLOW IVP PRN PRN PRN Reason: Hypoglycemia Enoxaparin Sodium (Lovenox) 80 mg SC 1500 [facility] Last Admin: 03/06/19 17:30 Dose: 80 mg Glucagon (Glucagon) 1 mg IM PRN PRN PRN Reason: Hypoglycemia Guaifenesin (Robitussin Sf) 200 mg PO Q4H PRN PRN Reason: Cough Guaifenesin/Dextromethorphan (Robitussin Dm) 15 ml PO Q4H PRN PRN Reason: Cough Hydralazine HCl (Apresoline) 10 mg SLOW IVP Q4H PRN PRN Reason: SBP > 180 and HR < 70 Hydrochlorothiazide (Hydrochlorothiazide) 25 mg PO DAILY [facility] Last Admin: 03/07/19 08:51 Dose: 25 mg Dextrose/Water (D5w) 1,000 mls @ 0 mls/hr IV .Q0M PRN PRN Reason: Hypoglycemia Insulin Glargine 10 units/ (Miscellaneous Medication) 0.1 mls @ 0 mls/hr SC [facility] Last Admin: 03/06/19 22:00 Dose: Not Given Insulin Human Lispro (Humalog) 0 units SC .MILD SLIDING SCALE PRN PRN Reason: Mild Correctional Scale Insulin Human Lispro (Humalog) 0 units SC .BEDTIME SLIDING SC PRN PRN Reason: Bedtime Correctional Scale Lisinopril (Zestril) 2.5 mg PO DAILY [facility] Last Admin: 03/07/19 08:52 Dose: 2.5 mg Loperamide HCl (Imodium) 2 mg PO PRN PRN PRN Reason: Diarrhea/Loose Stools Loratadine (Claritin) 10 mg PO DAILYPRN PRN PRN Reason: Sinus Symptoms Morphine Sulfate (Morphine) 2 mg SLOW IVP Q4H PRN PRN Reason: Pain Ondansetron HCl (Zofran) 4 mg IVP Q6H PRN PRN Reason: Nausea/Vomiting Ondansetron HCl (Zofran Odt) 4 mg PO Q6H PRN PRN Reason: Nausea/Vomiting Rosuvastatin Calcium (Crestor) 40 mg PO HS [facility] Last Admin: 03/06/19 22:00 Dose: 40 mg Senna/Docusate Sodium (Senokot S) 2 tab PO BID PRN PRN Reason: Constipation Sodium Chloride ([place] Nasal Charlo 0.65%) 0 ml EA NARE QIDPRN PRN PRN Reason: Nasal Congestion Sodium Chloride (Flush - Normal Saline) 10 ml IVF Q12HR [facility] Last Admin: 03/07/19 08:56 Dose: 10 ml Sodium Chloride (Flush - Normal Saline) 10 ml IVF PRN PRN PRN Reason: Saline Flush Throat Lozenges (Cepastat Lozenges) 1 rosa PO Q2H PRN PRN Reason: Sore Throat Zolpidem Tartrate (Ambien) 5 mg PO HSPRN PRN PRN Reason: Insomnia
[2019-03-07] MEDS: Enoxaparin Sodium 80 MG/0.8 ML SYRINGE SC SCH (14:06)
--- NOTE | 2019-03-07 17:54 | PDOC.CTH ---
Cardiology Progress Note - Subjective No complaints - Objective Vital Signs Temp Pulse Resp BP Pulse Ox 03/07/19 15:14 98.5 F 65 18 138/65 97 03/07/19 11:35 98 F 61 20 120/56 L 100 03/07/19 07:05 97.8 F 73 18 167/76 H 95 Weight 175 lb 14.862 oz 03/06/19 03/07/19 03/08/19 06:59 06:59 06:59 Intake Total 425 345 Output Total 500 300 Balance -75 45 - Physical Examination General/Neuro: alert & oriented x3, NAD Neck: carotid US brisk, no JVD present Lungs: unlabored respirations Heart: PMI normal, RRR Abdomen: NT/ND, soft Extremities: + femoral B - Telemetry Telemetry Rhythm: sr - Labs Result Diagrams: 03/06/19 04:19 03/07/19 06:04 Troponin/CKMB CK-MB (CK-2) 19.7 ng/mL (0-6.6) H* 03/05/19 13:13 Troponin I 5.084 ng/mL (< 0.028) H* 03/06/19 04:19 - Assessment/Plan Type 2 TN TAVR Inoperable CAD Recent fall No new recommendations. ON BB, ACEI and ASA, statin Pt with severe CAD diagnosed last yr without revascularization. No further recommendations. Ok for dc in am
[2019-03-07] MEDS: Rosuvastatin 20 MG TAB PO SCH (20:32)
[2019-03-07] MEDS: glyBURIDE 5 MG TAB PO SCH (20:32)
[2019-03-08] MEDS: Aspirin 81 mg Enteric Coated Tablet PO SCH (09:47)
[2019-03-08] MEDS: Hydrochlorothiazide 25 MG TAB PO SCH (09:47)
[2019-03-08] MEDS: Carvedilol 6.25 MG TAB PO SCH ×2 (09:47→20:52)
[2019-03-08] MEDS: Lisinopril 2.5 MG TAB PO SCH (09:47)
[2019-03-08] MEDS: Citalopram 20 MG TAB PO SCH (09:47)
[2019-03-08] MEDS: glyBURIDE 5 MG TAB PO SCH ×2 (09:47→20:52)
[2019-03-08] MEDS: Clopidogrel Bisulfate 75 MG TAB PO SCH (09:47)
[2019-03-08] MEDS: HumaLOG 300 UNITS/3 ML VIAL SC PRN ×2 (12:22→17:16)
--- NOTE | 2019-03-08 14:00 | PDOC.PN ---
- Subjective Encounter Start Date: 03/08/19 Encounter Start Time: 07:45 Patient seen and examined. No new complaints. No overnight events - Objective MAR Reviewed: Yes Vital Signs & Weight: Vital Signs (12 hours) Temp Pulse Pulse Resp BP BP BP 03/08/19 10:34 64 151/72 H 03/08/19 09:47 64 155/70 H 03/08/19 08:30 97.8 F 64 18 155/70 H 03/08/19 04:00 97.6 F 62 14 142/65 H Pulse Ox 03/08/19 10:34 03/08/19 09:47 03/08/19 08:30 97 03/08/19 04:00 96 Weight Weight 173 lb 12.8 oz Most Recent Monitor Data Heart Rate from ECG 70 NIBP 146/88 NIBP BP-Mean 107 Respiration from ECG 22 SpO2 100 I&O: 03/07/19 03/08/19 03/09/19 06:59 06:59 06:59 Intake Total 345 1160 Output Total 300 930 Balance 45 230 Result Diagrams: 03/06/19 04:19 03/07/19 06:04 Additional Labs: Accuchecks 03/08/19 03/08/19 03/07/19 10:53 05:12 20:33 POC Glucose 240 H 109 262 H 03/07/19 16:31 POC Glucose 257 H EKG Reviewed by me: Yes Phys Exam - Physical Examination Constitutional: NAD HEENT: PERRLA, moist MMs, sclera anicteric Neck: no JVD, supple Respiratory: no wheezing, no rales, no rhonchi Cardiovascular: RRR, no significant murmur, no rub Gastrointestinal: soft, non-tender, no distention, positive bowel sounds Musculoskeletal: no edema, pulses present Neurological: non-focal, normal sensation Lymphatic: no nodes Psychiatric: normal affect, A&O x 3 Skin: no rash, normal turgor Dx/Plan (1) NSTEMI (non-ST elevated myocardial infarction) Code(s): I21.4 - NON-ST ELEVATION (NSTEMI) MYOCARDIAL INFARCTION Status: Acute Comment: (2) Acute kidney injury Code(s): N17.9 - ACUTE KIDNEY FAILURE, UNSPECIFIED Status: Acute (3) Aortic stenosis, severe Code(s): I35.0 - NONRHEUMATIC AORTIC (VALVE) STENOSIS Status: Chronic Comment: S/P Recent transcatheter aortic valve replacement (4) CAD (coronary artery disease) Code(s): I25.10 - ATHSCL HEART DISEASE OF [place] CORONARY ARTERY W/O ANG PCTRS Status: Chronic Qualifiers: Comment: (5) Carotid arterial disease Code(s): I77.9 - DISORDER OF ARTERIES AND ARTERIOLES, UNSPECIFIED Status: Chronic Comment: prior h/o stents. 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 Review of Systems - Review of Systems Constitutional: weakness. negative: fever, chills, sweats, malaise, other ENT: negative: Ear Pain, Ear Discharge, Nose Pain, Nose Discharge, Nose Congestion, Mouth Pain, Mouth Swelling, Throat Pain, Throat Swelling, Other Respiratory: negative: Cough, Dry, Shortness of Breath, Hemoptysis, SOB with Excertion, Pleuritic Pain, Sputum, Wheezing Cardiovascular: negative: chest pain, palpitations, orthopnea, paroxysmal nocturnal dyspnea, edema, light headedness, other Gastrointestinal: negative: Nausea, Vomiting, Abdominal Pain, Diarrhea, Constipation, Melena, Hematochezia, Other Genitourinary: negative: Dysuria, Frequency, Incontinence, Hematuria, Retention , Other Musculoskeletal: negative: Neck Pain, Shoulder Pain, Arm Pain, Back Pain, Hand Pain, Leg Pain, Foot Pain, Other Skin: negative: Rash, Lesions, Last, Bruising, Other - Medications/Allergies Allergies/Adverse Reactions: Allergies Allergy/AdvReac Type Severity Reaction Status Date / Time No Known Drug Allergies Allergy Verified 12/25/17 04:37 Medications: Current Medications Acetaminophen (Tylenol) 650 mg PO Q4H PRN PRN Reason: Headache/Fever/Mild Pain (1-3) Hydrocodone Bitart/Acetaminophen ([place] 5/325) 1 tab PO Q4H PRN PRN Reason: Moderate Pain (4-6) Artificial Tears (Tears Naturale) 2 drop EA EYE PRN PRN PRN Reason: Dry Eyes Aspirin (Ecotrin) 81 mg PO DAILY [facility] Last Admin: 03/08/19 09:47 Dose: 81 mg Carvedilol (Coreg) 6.25 mg PO BID [facility] Last Admin: 03/08/19 09:47 Dose: 6.25 mg Citalopram Hydrobromide (Celexa) 20 mg PO DAILY [facility] Last Admin: 03/08/19 09:47 Dose: 20 mg Clopidogrel Bisulfate (Plavix) 75 mg PO DAILY [facility] Last Admin: 03/08/19 09:47 Dose: 75 mg Dextrose/Water (Dextrose 50%) 25 gm SLOW IVP PRN PRN PRN Reason: Hypoglycemia Enoxaparin Sodium (Lovenox) 80 mg SC 1500 [facility] Last Admin: 03/07/19 14:06 Dose: 80 mg Glucagon (Glucagon) 1 mg IM PRN PRN PRN Reason: Hypoglycemia Glyburide (Diabeta) 5 mg PO BID [facility] Last Admin: 03/08/19 09:47 Dose: 5 mg Guaifenesin (Robitussin Sf) 200 mg PO Q4H PRN PRN Reason: Cough Guaifenesin/Dextromethorphan (Robitussin Dm) 15 ml PO Q4H PRN PRN Reason: Cough Hydralazine HCl (Apresoline) 10 mg SLOW IVP Q4H PRN PRN Reason: SBP > 180 and HR < 70 Hydrochlorothiazide (Hydrochlorothiazide) 25 mg PO DAILY [facility] Last Admin: 03/08/19 09:47 Dose: 25 mg Dextrose/Water (D5w) 1,000 mls @ 0 mls/hr IV .Q0M PRN PRN Reason: Hypoglycemia Insulin Human Lispro (Humalog) 0 units SC .MILD SLIDING SCALE PRN PRN Reason: Mild Correctional Scale Last Admin: 03/08/19 12:22 Dose: 3 unit Insulin Human Lispro (Humalog) 0 units SC .BEDTIME SLIDING SC PRN PRN Reason: Bedtime Correctional Scale Lisinopril (Zestril) 2.5 mg PO DAILY [facility] Last Admin: 03/08/19 09:47 Dose: 2.5 mg Loperamide HCl (Imodium) 2 mg PO PRN PRN PRN Reason: Diarrhea/Loose Stools Loratadine (Claritin) 10 mg PO DAILYPRN PRN PRN Reason: Sinus Symptoms Morphine Sulfate (Morphine) 2 mg SLOW IVP Q4H PRN PRN Reason: Pain Ondansetron HCl (Zofran) 4 mg IVP Q6H PRN PRN Reason: Nausea/Vomiting Ondansetron HCl (Zofran Odt) 4 mg PO Q6H PRN PRN Reason: Nausea/Vomiting Rosuvastatin Calcium (Crestor) 40 mg PO HS [facility] Last Admin: 03/07/19 20:32 Dose: 40 mg Senna/Docusate Sodium (Senokot S) 2 tab PO BID PRN PRN Reason: Constipation Sodium Chloride ([place] Nasal [place] 0.65%) 0 ml EA NARE QIDPRN PRN PRN Reason: Nasal Congestion Sodium Chloride (Flush - Normal Saline) 10 ml IVF Q12HR [facility] Last Admin: 03/08/19 09:47 Dose: 10 ml Sodium Chloride (Flush - Normal Saline) 10 ml IVF PRN PRN PRN Reason: Saline Flush Throat Lozenges (Cepastat Lozenges) 1 rosa PO Q2H PRN PRN Reason: Sore Throat Zolpidem Tartrate (Ambien) 5 mg PO HSPRN PRN PRN Reason: Insomnia
[2019-03-08] MEDS: Enoxaparin Sodium 80 MG/0.8 ML SYRINGE SC SCH (15:38)
[2019-03-08] MEDS: Rosuvastatin 20 MG TAB PO SCH (20:52)
[2019-03-09] MEDS: Carvedilol 6.25 MG TAB PO SCH ×2 (09:12→21:04)
[2019-03-09] MEDS: Aspirin 81 mg Enteric Coated Tablet PO SCH (09:12)
[2019-03-09] MEDS: glyBURIDE 5 MG TAB PO SCH ×2 (09:13→21:04)
[2019-03-09] MEDS: Citalopram 20 MG TAB PO SCH (09:13)
[2019-03-09] MEDS: Clopidogrel Bisulfate 75 MG TAB PO SCH (09:13)
[2019-03-09] MEDS: Lisinopril 2.5 MG TAB PO SCH (09:13)
[2019-03-09] MEDS: Hydrochlorothiazide 25 MG TAB PO SCH (09:14)
--- NOTE | 2019-03-09 11:48 | PDOC.PN ---
- Subjective Encounter Start Date: 03/09/19 Encounter Start Time: 08:45 Patient seen and examined. No new complaints. No overnight events pt has dry cough, no dyspnea, no chest pain - Objective MAR Reviewed: Yes Vital Signs & Weight: Vital Signs (12 hours) Temp Pulse Resp BP BP Pulse Ox 03/09/19 09:13 64 03/09/19 09:12 163/74 H 03/09/19 07:20 98.4 F 64 16 163/74 H 95 03/09/19 03:05 98.6 F 59 L 16 160/70 H 97 03/09/19 00:00 18 Weight Weight 173 lb 8 oz Most Recent Monitor Data Heart Rate from ECG 70 NIBP 146/88 NIBP BP-Mean 107 Respiration from ECG 22 SpO2 100 I&O: 03/08/19 03/09/19 03/10/19 06:59 06:59 06:59 Intake Total 1160 120 Output Total 930 525 Balance 230 -405 Result Diagrams: 03/06/19 04:19 03/07/19 06:04 Additional Labs: Accuchecks 03/09/19 03/09/19 03/08/19 10:58 05:40 20:17 POC Glucose 226 H 202 H 232 H 03/08/19 16:51 POC Glucose 251 H EKG Reviewed by me: Yes Phys Exam - Physical Examination Constitutional: NAD HEENT: PERRLA, moist MMs, sclera anicteric Neck: no JVD, supple Respiratory: no wheezing, no rhonchi coarse sound Cardiovascular: RRR, no significant murmur, no rub Gastrointestinal: soft, non-tender, no distention, positive bowel sounds Musculoskeletal: no edema, pulses present Neurological: non-focal, normal sensation, moves all 4 limbs Lymphatic: no nodes Psychiatric: normal affect, A&O x 3 Skin: no rash, normal turgor Dx/Plan (1) Acute kidney injury Code(s): N17.9 - ACUTE KIDNEY FAILURE, UNSPECIFIED Status: Acute (2) Aortic stenosis, severe Code(s): I35.0 - NONRHEUMATIC AORTIC (VALVE) STENOSIS Status: Chronic Comment: S/P Recent transcatheter aortic valve replacement (3) CAD (coronary artery disease) Code(s): I25.10 - ATHSCL HEART DISEASE OF [place] CORONARY ARTERY W/O ANG PCTRS Status: Chronic Qualifiers: Comment: (4) Carotid arterial disease Code(s): I77.9 - DISORDER OF ARTERIES AND ARTERIOLES, UNSPECIFIED Status: Chronic Comment: prior h/o stents. (5) DM type 2 (diabetes mellitus, type 2) Status: Chronic Qualifiers: Comment: (6) HTN (hypertension) Code(s): I10 - ESSENTIAL (PRIMARY) HYPERTENSION Status: Chronic Qualifiers: Comment: (7) Ischemic cardiomyopathy Code(s): I25.5 - ISCHEMIC CARDIOMYOPATHY Status: Chronic Comment: EF 15-20% - Plan cont current plan of care, plan discussed w/ family, PT/OT, social service assistant * will add lasix 40 mg po daily * add mucinex * continue current optimum medical therapy * as per cardiology pt has Type 2 LA and agree with that * medication reviewed as below * symptomatic treatment * discussed with son bedside. Review of Systems - Review of Systems ENT: negative: Ear Pain, Ear Discharge, Nose Pain, Nose Discharge, Nose Congestion, Mouth Pain, Mouth Swelling, Throat Pain, Throat Swelling, Other Respiratory: Cough, Dry. negative: Shortness of Breath, Hemoptysis, SOB with Excertion, Pleuritic Pain, Sputum, Wheezing Cardiovascular: negative: chest pain, palpitations, orthopnea, paroxysmal nocturnal dyspnea, edema, light headedness, other Gastrointestinal: negative: Nausea, Vomiting, Abdominal Pain, Diarrhea, Constipation, Melena, Hematochezia, Other Genitourinary: negative: Dysuria, Frequency, Incontinence, Hematuria, Retention , Other Musculoskeletal: negative: Neck Pain, Shoulder Pain, Arm Pain, Back Pain, Hand Pain, Leg Pain, Foot Pain, Other - Medications/Allergies Allergies/Adverse Reactions: Allergies Allergy/AdvReac Type Severity Reaction Status Date / Time No Known Drug Allergies Allergy Verified 12/25/17 04:37 Medications: Current Medications Acetaminophen (Tylenol) 650 mg PO Q4H PRN PRN Reason: Headache/Fever/Mild Pain (1-3) Hydrocodone Bitart/Acetaminophen ([place] 5/325) 1 tab PO Q4H PRN PRN Reason: Moderate Pain (4-6) Artificial Tears (Tears Naturale) 2 drop EA EYE PRN PRN PRN Reason: Dry Eyes Aspirin (Ecotrin) 81 mg PO DAILY [facility] Last Admin: 03/09/19 09:12 Dose: 81 mg Carvedilol (Coreg) 6.25 mg PO BID [facility] Last Admin: 03/09/19 09:12 Dose: 6.25 mg Citalopram Hydrobromide (Celexa) 20 mg PO DAILY [facility] Last Admin: 03/09/19 09:13 Dose: 20 mg Clopidogrel Bisulfate (Plavix) 75 mg PO DAILY [facility] Last Admin: 03/09/19 09:13 Dose: 75 mg Dextrose/Water (Dextrose 50%) 25 gm SLOW IVP PRN PRN PRN Reason: Hypoglycemia Enoxaparin Sodium (Lovenox) 80 mg SC 1500 [facility] Last Admin: 03/08/19 15:38 Dose: 80 mg Glucagon (Glucagon) 1 mg IM PRN PRN PRN Reason: Hypoglycemia Glyburide (Diabeta) 5 mg PO BID [facility] Last Admin: 03/09/19 09:13 Dose: 5 mg Guaifenesin (Robitussin Sf) 200 mg PO Q4H PRN PRN Reason: Cough Guaifenesin/Dextromethorphan (Robitussin Dm) 15 ml PO Q4H PRN PRN Reason: Cough Hydralazine HCl (Apresoline) 10 mg SLOW IVP Q4H PRN PRN Reason: SBP > 180 and HR < 70 Hydrochlorothiazide (Hydrochlorothiazide) 25 mg PO DAILY [facility] Last Admin: 03/09/19 09:14 Dose: 25 mg Dextrose/Water (D5w) 1,000 mls @ 0 mls/hr IV .Q0M PRN PRN Reason: Hypoglycemia Insulin Human Lispro (Humalog) 0 units SC .MILD SLIDING SCALE PRN PRN Reason: Mild Correctional Scale Last Admin: 03/08/19 17:16 Dose: 4 unit Insulin Human Lispro (Humalog) 0 units SC .BEDTIME SLIDING SC PRN PRN Reason: Bedtime Correctional Scale Lisinopril (Zestril) 2.5 mg PO DAILY [facility] Last Admin: 03/09/19 09:13 Dose: 2.5 mg Loperamide HCl (Imodium) 2 mg PO PRN PRN PRN Reason: Diarrhea/Loose Stools Loratadine (Claritin) 10 mg PO DAILYPRN PRN PRN Reason: Sinus Symptoms Last Admin: 03/08/19 21:01 Dose: 10 mg Morphine Sulfate (Morphine) 2 mg SLOW IVP Q4H PRN PRN Reason: Pain Ondansetron HCl (Zofran) 4 mg IVP Q6H PRN PRN Reason: Nausea/Vomiting Ondansetron HCl (Zofran Odt) 4 mg PO Q6H PRN PRN Reason: Nausea/Vomiting Rosuvastatin Calcium (Crestor) 40 mg PO HS [facility] Last Admin: 03/08/19 20:52 Dose: 40 mg Senna/Docusate Sodium (Senokot S) 2 tab PO BID PRN PRN Reason: Constipation Sodium Chloride ([place] Nasal [place] 0.65%) 0 ml EA NARE QIDPRN PRN PRN Reason: Nasal Congestion Sodium Chloride (Flush - Normal Saline) 10 ml IVF Q12HR [facility] Last Admin: 03/09/19 09:15 Dose: 10 ml Sodium Chloride (Flush - Normal Saline) 10 ml IVF PRN PRN PRN Reason: Saline Flush Throat Lozenges (Cepastat Lozenges) 1 rosa PO Q2H PRN PRN Reason: Sore Throat Zolpidem Tartrate (Ambien) 5 mg PO HSPRN PRN PRN Reason: Insomnia
[2019-03-09] MEDS ORDERED: Furosemide 40 MG TAB PO SCH (12:00)
[2019-03-09] MEDS: HumaLOG 300 UNITS/3 ML VIAL SC PRN (12:00)
[2019-03-09] MEDS: Rosuvastatin 20 MG TAB PO SCH (21:04)
[2019-03-09] MEDS: guaiFENesin ER 600 MG TAB PO SCH (21:04)
[2019-03-10 05:18] LABS: #Eosinphils 0.1 thou/uL (0.0-0.7); #Lymphocytes 0.9 thou/uL (1.20-3.40); #Monocytes 0.6 thou/uL (0.11-0.59); #Neutrophils 4.9 thou/uL (1.40-6.50); %Basophils 0.4 % (0.0-1.0); %Eosinophils 2.1 % (0.0-10.0); %Lymphocytes 14.3 % (21.0-51.0); %Monocytes 8.8 % (0.0-10.0); %Neutrophils 74.5 % (42.0-75.0); Hemoglobin 15.6 g/dL (14.0-18.0); Mean Corpuscular HGB CONC 34.7 g/dL (32.0-36.0); Mean Corpuscular Hemoglobin 32.3 pg (27.0-31.0); Mean Corpuscular Volume 93.1 fL (78.0-98.0); Mean Platelet Volume 7.6 fL (7.4-10.4); Platelet Count 204 thou/uL (130-400); RBC Distribution Width 12.5 % (11.5-14.5); Red Blood Cell (RBC) Count 4.84 mill/uL (4.70-6.10); White Blood Cell (WBC) Count 6.6 thou/uL (4.8-10.8)
[2019-03-10 05:36] LABS: Anion Gap 13 mmol/L (10-20); BUN (Urea Nitrogen) 26 mg/dL (8.4-25.7); Calc. Creatinine Clearance 66 mL/min (70-130); Calcium 9.3 mg/dL (7.8-10.44); Carbon Dioxide 27 mmol/L (23-31); Chloride 99 mmol/L (98-107); Estimated GFR-MDRD 71; Glucose 103 mg/dL (83-110); Potassium 3.3 mmol/L (3.5-5.1); Sodium 136 mmol/L (136-145)
[2019-03-10] MEDS ORDERED: Potassium Chloride 20 MEQ TAB PO SCH (07:00)
[2019-03-10] MEDS ORDERED: Furosemide 40 MG TAB PO SCH (07:30)
[2019-03-10] MEDS: Aspirin 81 mg Enteric Coated Tablet PO SCH (08:18)
[2019-03-10] MEDS: Citalopram 20 MG TAB PO SCH (08:19)
[2019-03-10] MEDS: Clopidogrel Bisulfate 75 MG TAB PO SCH (08:19)
[2019-03-10] MEDS: Carvedilol 6.25 MG TAB PO SCH (08:19)
[2019-03-10] MEDS: Hydrochlorothiazide 25 MG TAB PO SCH (08:20)
[2019-03-10] MEDS: glyBURIDE 5 MG TAB PO SCH (08:20)
[2019-03-10] MEDS: guaiFENesin ER 600 MG TAB PO SCH (08:20)
[2019-03-10] MEDS: Lisinopril 2.5 MG TAB PO SCH (08:20)
[2019-03-10] MEDS ORDERED: Enoxaparin Sodium 40 MG/0.4 ML SYRINGE SC SCH (09:00)
--- NOTE | 2019-03-10 10:38 | DIS ---
DATE OF ADMISSION: 03/05/2019 DATE OF DISCHARGE: 03/10/2019 PRIMARY CARE PHYSICIAN: ADIA Garcia DISCHARGE DISPOSITION: [facility] home. PRIMARY DISCHARGE DIAGNOSES: 1. Type [address] elevation. 2. Acute kidney injury. 3. Hypokalemia. SECONDARY DISCHARGE DIAGNOSES: Ischemic cardiomyopathy, hypertension, diabetes type 2, carotid stenosis, coronary artery disease, history of severe aortic stenosis. PRIMARY PROCEDURE/OPERATION: None. RADIOLOGICAL INVESTIGATION: Chest x-ray on admission showed no acute cardiopulmonary process. Echocardiography during this admission showed EF 25% to 30%, moderate MR, bioprosthetic porcine type valve, moderate pulmonary hypertension. SIGNIFICANT LABORATORY DATA: WBC 6.6, hemoglobin 15.6, and platelet 204. Sodium 136, potassium 3.3, BUN 26, creatinine 1.01, calcium 9.3. DISCHARGE MEDICATIONS: 1. Aspirin 81 mg p.o. daily. 2. Celexa 20 mg p.o. daily. 3. Plavix 75 mg p.o. daily. 4. Glyburide 5 mg p.o. b.i.d. 5. Hydrochlorothiazide 25 mg p.o. daily. 6. Crestor 20 mg p.o. daily. 7. Coreg 6.25 mg b.i.d. 8. Lisinopril 2.5 mg p.o. daily. 9. Lasix 20 mg p.o. daily. CONTRAINDICATION: None. CODE STATUS: Full code. INPATIENT GUEST SPECIALIST: Dr. Patterson was following while in the hospital. Dr. Shah was following while in the hospital. TEST RESULTS PENDING ON DISCHARGE: None. ALLERGIES: NO KNOWN DRUG ALLERGIES. DISCHARGE PLAN: Posthospital, the patient will follow up with primary care physician, cardiac rehab, and Dr. Patterson as instructed. HOSPITAL COURSE: A 78-year-old male with above-mentioned medical problems, who was admitted by Dr. Jose Franco. Please see his H and P for further details. The patient was having syncopal episode. He was feeling weak, generalized discomfort, as well as recurrent fall. He was found with acute kidney injury. On admission , his creatinine was elevated to 1.74. He was relatively hypotensive. He was given IV fluid and he became normal. He also had significantly abnormal troponin, which Cardiology attributed to be due to type 2 myocardial infarction. This patient has underlying ischemic cardiomyopathy and severe coronary artery disease, which is only medically treated. He cannot have any further intervention or any further testing as per Cardiology and that is why we decided to treat him medically. While in hospital, we continued with aspirin, Plavix, beta-sether, and we added NAYELI inhibitor on discharge. We also added Lasix low dose on discharge. Rest of medications will be continued as per previous. This patient has physical weakness and that is why with help of disability case manager, we arranged custodial home. The patient is improving significantly. I have seen and examined the patient at bedside today. PHYSICAL EXAMINATION: VITAL SIGNS: Currently, temperature 97.8, pulse 63, respiratory rate 16, blood pressure 151/70, saturation 100% on room air, weight 169 pounds. GENERAL: The patient is currently alert and awake. No obvious acute distress. HEENT: Head; normocephalic, atraumatic. Eyes; pupils round, reactive to light. Extraocular muscle intact. ENT; oropharynx within normal limits. Moist mucous membranes. No oral lesion. No pharyngeal erythema. No exudate. NECK: Supple. No JVD. No thyromegaly. No carotid bruit. LUNGS: Clear to auscultation without any rhonchi or rales. CARDIAC: S1 and S2, regular without any murmur. ABDOMEN: Soft, benign. EXTREMITIES: No edema. NEUROLOGIC: Nonfocal examination. The patient is medically stable for discharge today. Paperwork for discharge done and discharge medication reconciliation done. Total time spent on discharge day 31 minutes Job ID: [id number] MTDD
--- NOTE | 2019-03-10 11:00 | PDOC.PN ---
- Subjective Encounter Start Date: 03/10/19 Encounter Start Time: 11:00 Patient seen and examined. No new complaints. No overnight events - Objective MAR Reviewed: Yes Vital Signs & Weight: Vital Signs (12 hours) Temp Pulse Resp BP BP Pulse Ox 03/10/19 08:20 70 03/10/19 07:06 97.8 F 63 16 151/70 H 100 03/10/19 04:00 98.1 F 58 L 16 161/74 H 93 L Weight Weight 169 lb 4.8 oz Most Recent Monitor Data Heart Rate from ECG 70 NIBP 146/88 NIBP BP-Mean 107 Respiration from ECG 22 SpO2 100 I&O: 03/09/19 03/10/19 03/11/19 06:59 06:59 06:59 Intake Total 120 750 Output Total 525 Balance -405 750 Result Diagrams: 03/10/19 05:03 03/10/19 05:03 Additional Labs: Accuchecks 03/10/19 03/09/19 03/09/19 05:29 20:09 17:33 POC Glucose 140 H 226 H 182 H 03/09/19 10:58 POC Glucose 226 H EKG Reviewed by me: Yes Phys Exam - Physical Examination Constitutional: NAD HEENT: moist MMs, sclera anicteric Neck: no JVD, supple Respiratory: no wheezing, no rales, no rhonchi Cardiovascular: RRR, no significant murmur, no rub Gastrointestinal: soft, non-tender, no distention, positive bowel sounds Musculoskeletal: no edema, pulses present Neurological: non-focal, normal sensation Lymphatic: no nodes Psychiatric: normal affect, A&O x 3 Skin: no rash, normal turgor Dx/Plan (1) Acute kidney injury Code(s): N17.9 - ACUTE KIDNEY FAILURE, UNSPECIFIED Status: Acute (2) Aortic stenosis, severe Code(s): I35.0 - NONRHEUMATIC AORTIC (VALVE) STENOSIS Status: Chronic Comment: S/P Recent transcatheter aortic valve replacement (3) CAD (coronary artery disease) Code(s): I25.10 - ATHSCL HEART DISEASE OF [place] CORONARY ARTERY W/O ANG PCTRS Status: Chronic Qualifiers: Comment: (4) Carotid arterial disease Code(s): I77.9 - DISORDER OF ARTERIES AND ARTERIOLES, UNSPECIFIED Status: Chronic Comment: prior h/o stents. (5) DM type 2 (diabetes mellitus, type 2) Status: Chronic Comment: (6) HTN (hypertension) Code(s): I10 - ESSENTIAL (PRIMARY) HYPERTENSION Status: Chronic Qualifiers: Comment: (7) Ischemic cardiomyopathy Code(s): I25.5 - ISCHEMIC CARDIOMYOPATHY Status: Chronic Comment: EF 15-20% - Plan cont current plan of care * medication reviewed as below * symptomatic treatment * see discharge ananya. Review of Systems - Review of Systems ENT: negative: Ear Pain, Ear Discharge, Nose Pain, Nose Discharge, Nose Congestion, Mouth Pain, Mouth Swelling, Throat Pain, Throat Swelling, Other Respiratory: negative: Cough, Dry, Shortness of Breath, Hemoptysis, SOB with Excertion, Pleuritic Pain, Sputum, Wheezing Cardiovascular: negative: chest pain, palpitations, orthopnea, paroxysmal nocturnal dyspnea, edema, light headedness, other Gastrointestinal: negative: Nausea, Vomiting, Abdominal Pain, Diarrhea, Constipation, Melena, Hematochezia, Other Genitourinary: negative: Dysuria, Frequency, Incontinence, Hematuria, Retention , Other Musculoskeletal: negative: Neck Pain, Shoulder Pain, Arm Pain, Back Pain, Hand Pain, Leg Pain, Foot Pain, Other - Medications/Allergies Allergies/Adverse Reactions: Allergies Allergy/AdvReac Type Severity Reaction Status Date / Time No Known Drug Allergies Allergy Verified 12/25/17 04:37 Medications: Current Medications Acetaminophen (Tylenol) 650 mg PO Q4H PRN PRN Reason: Headache/Fever/Mild Pain (1-3) Hydrocodone Bitart/Acetaminophen ([place] 5/325) 1 tab PO Q4H PRN PRN Reason: Moderate Pain (4-6) Artificial Tears (Tears Naturale) 2 drop EA EYE PRN PRN PRN Reason: Dry Eyes Aspirin (Ecotrin) 81 mg PO DAILY [facility] Last Admin: 03/10/19 08:18 Dose: 81 mg Carvedilol (Coreg) 6.25 mg PO BID [facility] Last Admin: 03/10/19 08:19 Dose: 6.25 mg Citalopram Hydrobromide (Celexa) 20 mg PO DAILY [facility] Last Admin: 03/10/19 08:19 Dose: 20 mg Clopidogrel Bisulfate (Plavix) 75 mg PO DAILY [facility] Last Admin: 03/10/19 08:19 Dose: 75 mg Dextrose/Water (Dextrose 50%) 25 gm SLOW IVP PRN PRN PRN Reason: Hypoglycemia Enoxaparin Sodium (Lovenox) 40 mg SC 0900 [facility] Last Admin: 03/10/19 08:19 Dose: 40 mg Furosemide (Lasix) 40 mg PO DAILY-AC [facility] Last Admin: 03/10/19 08:18 Dose: 40 mg Glucagon (Glucagon) 1 mg IM PRN PRN PRN Reason: Hypoglycemia Glyburide (Diabeta) 5 mg PO BID [facility] Last Admin: 03/10/19 08:20 Dose: 5 mg Guaifenesin (Robitussin Sf) 200 mg PO Q4H PRN PRN Reason: Cough Guaifenesin (Mucinex) 600 mg PO Q12HR [facility] Last Admin: 03/10/19 08:20 Dose: 600 mg Guaifenesin/Dextromethorphan (Robitussin Dm) 15 ml PO Q4H PRN PRN Reason: Cough Hydralazine HCl (Apresoline) 10 mg SLOW IVP Q4H PRN PRN Reason: SBP > 180 and HR < 70 Hydrochlorothiazide (Hydrochlorothiazide) 25 mg PO DAILY [facility] Last Admin: 03/10/19 08:20 Dose: 25 mg Dextrose/Water (D5w) 1,000 mls @ 0 mls/hr IV .Q0M PRN PRN Reason: Hypoglycemia Insulin Human Lispro (Humalog) 0 units SC .MILD SLIDING SCALE PRN PRN Reason: Mild Correctional Scale Last Admin: 03/09/19 12:00 Dose: 3 unit Insulin Human Lispro (Humalog) 0 units SC .BEDTIME SLIDING SC PRN PRN Reason: Bedtime Correctional Scale Last Admin: 03/09/19 21:05 Dose: 2 unit Lisinopril (Zestril) 2.5 mg PO DAILY [facility] Last Admin: 03/10/19 08:20 Dose: 2.5 mg Loperamide HCl (Imodium) 2 mg PO PRN PRN PRN Reason: Diarrhea/Loose Stools Loratadine (Claritin) 10 mg PO DAILYPRN PRN PRN Reason: Sinus Symptoms Last Admin: 03/08/19 21:01 Dose: 10 mg Morphine Sulfate (Morphine) 2 mg SLOW IVP Q4H PRN PRN Reason: Pain Ondansetron HCl (Zofran) 4 mg IVP Q6H PRN PRN Reason: Nausea/Vomiting Ondansetron HCl (Zofran Odt) 4 mg PO Q6H PRN PRN Reason: Nausea/Vomiting Rosuvastatin Calcium (Crestor) 40 mg PO HS [facility] Last Admin: 03/09/19 21:04 Dose: 40 mg Senna/Docusate Sodium (Senokot S) 2 tab PO BID PRN PRN Reason: Constipation Sodium Chloride ([place] Nasal [place] 0.65%) 0 ml EA NARE QIDPRN PRN PRN Reason: Nasal Congestion Sodium Chloride (Flush - Normal Saline) 10 ml IVF Q12HR [facility] Last Admin: 03/10/19 08:20 Dose: 10 ml Sodium Chloride (Flush - Normal Saline) 10 ml IVF PRN PRN PRN Reason: Saline Flush Throat Lozenges (Cepastat Lozenges) 1 rosa PO Q2H PRN PRN Reason: Sore Throat Zolpidem Tartrate (Ambien) 5 mg PO HSPRN PRN PRN Reason: Insomnia
[2019-03-10 11:59] VITALS: BP 141/63; TEMP 98
[2019-03-10] MEDS: HumaLOG 300 UNITS/3 ML VIAL SC PRN (12:56)
== END 2019-03-10 13:55 | DRG 682 ==
LOC: ERS 12:54 → CCU 15:10 → 2NO 03-06 17:53
PROVIDERS: ADMIT Internal Medicine; ATTEND Internal Medicine
DX: N17.9 Acute kidney failure, unspecified (principal); I21.A1 Myocardial infarction type 2; I13.0 Hypertensive heart and chronic kidney disease with heart failure and stage 1 through stage 4 chronic kidney disease, or unspecified chronic kidney disease; E78.5 Hyperlipidemia, unspecified; I25.10 Atherosclerotic heart disease of native coronary artery without angina pectoris; E11.22 Type 2 diabetes mellitus with diabetic chronic kidney disease; N18.9 Chronic kidney disease, unspecified; I25.5 Ischemic cardiomyopathy; I50.9 Heart failure, unspecified; I35.0 Nonrheumatic aortic (valve) stenosis; E66.9 Obesity, unspecified; E87.6 Hypokalemia; F32.9 Major depressive disorder, single episode, unspecified; Z68.27 Body mass index [BMI] 27.0-27.9, adult; Z95.5 Presence of coronary angioplasty implant and graft; Z79.82 Long term (current) use of aspirin; Z79.899 Other long term (current) drug therapy
CPT/HCPCS: 36415; 36416; 71045; 80048; 80053; 82010; 82330; 82550; 82553; 82803; 83690; 83735; 84100; 84443; 84484; 85025; 93005; 93306; 93798; 94760; 96360; 96372; J1650; J1815; J1825; J8597

== ENCOUNTER 2020-11-27 11:54 | Observation (INO) | payer MEDICARE ==
--- NOTE | 2020-11-27 12:31 | RAD ---
Chest one view HISTORY: Dyspnea. COMPARISON: 03/05/2019. FINDINGS: Cardiac silhouette is magnified by projection. Metallic stent over the aortic valve. Pulmonary vasculature are unremarkable. Mediastinum is midline with aortic calcification. No airspace consolidation or evidence of pneumothorax. IMPRESSION : No acute abnormalities are demonstrated.
[2020-11-27 13:09] LABS: #Lymphocytes 0.8 thou/uL (1.20-3.40); #Monocytes 0.6 thou/uL (0.11-0.59); #Neutrophils 4.8 thou/uL (1.40-6.50); %Basophils 0.5 % (0.0-1.0); %Eosinophils 0.8 % (0.0-10.0); %Lymphocytes 13.4 % (21.0-51.0); %Monocytes 8.8 % (0.0-10.0); %Neutrophils 76.5 % (42.0-75.0); Hemoglobin 15.2 g/dL (14.0-18.0); Mean Corpuscular HGB CONC 35.5 g/dL (32.0-36.0); Mean Corpuscular Hemoglobin 34.3 pg (27.0-31.0); Mean Corpuscular Volume 96.6 fL (78.0-98.0); Mean Platelet Volume 7.6 fL (7.4-10.4); Platelet Count 168 thou/uL (130-400); RBC Distribution Width 12.2 % (11.5-14.5); Red Blood Cell (RBC) Count 4.44 mill/uL (4.70-6.10); White Blood Cell (WBC) Count 6.2 thou/uL (4.8-10.8)
[2020-11-27 13:27] LABS: ALT (SGPT) 40 U/L (8-55); AST (SGOT) 25 U/L (5-34); Albumin 4.1 g/dL (3.4-4.8); Alkaline Phosphatase 50 U/L (40-110); Anion Gap 12 mmol/L (10-20); BUN (Urea Nitrogen) 28 mg/dL (8.4-25.7); Bilirubin, Total 0.6 mg/dL (0.2-1.2); CK (CPK) 57 U/L (30-200); Calc. Creatinine Clearance 0 mL/min (70-130); Calcium 9.1 mg/dL (7.8-10.44); Carbon Dioxide 26 mmol/L (23-31); Chloride 107 mmol/L (98-107); Globulin 2.7 g/dL (2.4-3.5); Glucose 198 mg/dL (83-110); Potassium 3.8 mmol/L (3.5-5.1); Protein, Total 6.8 g/dL (5.8-8.1); Sodium 141 mmol/L (136-145)
[2020-11-27 15:28] LABS: Bacteria/HPF None Seen HPF (None Seen); Bilirubin Negative (Negative); Blood, Urine Negative (Negative); Clarity Clear (Clear); Glucose, Urine (Dipstick) 500 mg/dL (Negative); Ketone, Urine Negative (Negative); Leukocyte Negative Leu/uL (Negative); Nitrite Negative (Negative); Protein, Urine (Dipstick) 70 mg/dL (Neg-Trace); RBC/HPF 0-3 HPF (0-3); Specific Gravity, Urine 1.021 (1.002-1.036); Squamous Epithelial None Seen HPF (0-3); Urobilinogen Normal mg/dL (Less than 2); WBC/HPF 0-3 HPF (0-3); pH, Urine 5.5 (5.0-9.0)
[2020-11-27] MEDS ORDERED: Aspirin 325 MG TAB ONE (16:13)
[2020-11-27] MEDS ORDERED: Guaifenesin DM 100-10/5 ML UDCUP PO PRN (16:29)
[2020-11-27] MEDS ORDERED: Sodium Chloride 0.65% Nasal 44 ML BOT EA NARE PRN (16:29)
[2020-11-27] MEDS ORDERED: Loratadine 10 MG TAB PO PRN (16:29)
[2020-11-27] MEDS ORDERED: Ondansetron PF 4 MG/2 ML Vial IVP PRN (16:29)
[2020-11-27] MEDS ORDERED: Senokot S 8.6-50 MG TAB PO PRN (16:29)
[2020-11-27] MEDS ORDERED: HYDROcodone/Acetaminophen 5/325 mg Tablet PO PRN (16:29)
[2020-11-27] MEDS ORDERED: hydrALAZINE 20 MG/ML VIAL SLOW IVP PRN (16:29)
[2020-11-27] MEDS ORDERED: Bisacodyl 10 MG SUPP PR PRN (16:29)
[2020-11-27] MEDS ORDERED: Loperamide HCl 2 MG CAP PO PRN (16:29)
[2020-11-27] MEDS ORDERED: Dextrose 50% Abboject 50 ML SYRINGE SLOW IVP PRN (16:29)
[2020-11-27] MEDS ORDERED: Zolpidem Tartrate 5 MG TAB PO PRN (16:29)
[2020-11-27] MEDS ORDERED: Nitroglycerin 0.4 MG TAB (25 Tab Bottle) SL PRN (16:29)
[2020-11-27] MEDS ORDERED: Acetaminophen 325 MG TAB PO PRN (16:29)
[2020-11-27] MEDS ORDERED: Cepastat Lozenges 1 LOZ PO PRN (16:29)
[2020-11-27] MEDS ORDERED: Dextrose 5% in Water 1,000 ML IV PRN (16:29)
[2020-11-27] MEDS ORDERED: Ondansetron ODT 4 MG TAB PO PRN (16:29)
[2020-11-27] MEDS ORDERED: Calcium Carbonate 500 MG ChewTAB PO PRN (16:29)
[2020-11-27] MEDS ORDERED: HumaLOG 300 UNITS/3 ML VIAL SC PRN ×2 (16:29)
--- NOTE | 2020-11-27 16:37 | PDOC.HHP ---
Hospitalist HPI Generalized weakness History of Present Illness: 80-year-old male who has chronic systolic heart failure, hypertension, diabetes type 2 who was brought to emergency room for generalized weakness, patient's niece went to clean his home and she noticed that patient was not able to walk, normally he gets around with a walker, he was feeling generalized weak, previously when patient had this type of for generalized weakness at that time patient was found with heart attack so patient's daughter was worried about and decided to bring to emergency room for evaluation, Patient has not no clue why he is in hospital, he lives at home by himself, his son lives next to his house, who prepares his medication and watch over him, Patient does not have any nausea vomiting diarrhea or chest pain or abdominal pain, patient has underlying history of peripheral arterial disease and recommended medical therapy, Today in the emergency room routine laboratory test showed normal CBC, creatinine 1.51, BNP 206 and troponin negative, urine analysis normal, chest x- ray unremarkable, This patient's last echocardiography in 2019 showed EF 25 to 30%, he has bioprosthetic aortic valve, moderate pulmonary hypertension, he had cardiac catheterization in 2019 at that time patient had multivessel CAD recommended CABG and severe ED Course: Patient is given 1 L IV fluid and aspirin Allergies/Adverse Reactions: Allergy/AdvReac Type Severity Reaction Status Date / Time No Known Drug Allergies Allergy Verified 12/25/17 04:37 Home Medications: Medication Instructions Recorded Confirmed Type Carvedilol [Coreg] 6.25 mg PO BID #60 tab 11/26/17 03/05/19 Rx Aspirin [Adult Aspirin] 81 mg PO DAILY 02/01/18 03/05/19 History Citalopram Hydrobromide 20 mg PO DAILY 02/01/18 03/05/19 History [Citalopram HBr] Clopidogrel Bisulfate [Plavix] 75 mg PO DAILY 02/01/18 03/05/19 History Hydrochlorothiazide 25 mg PO DAILY 02/01/18 03/05/19 History Rosuvastatin Calcium [Crestor] 20 mg PO DAILY 02/01/18 03/05/19 History glyBURIDE [Glyburide] 5 mg PO BID 02/01/18 03/05/19 History Lisinopril 2.5 mg PO DAILY #30 tablet 03/07/19 Rx Furosemide [Lasix] 20 mg PO DAILY #30 tab 03/10/19 Rx Past History: Past medical history Diabetes type 2 Ischemic cardiomyopathy Aortic valve stenosis Chronic systolic heart failure Hypertension Dyslipidemia Peripheral arterial disease Glaucoma Cognitive dysfunction Carotid stenosis Past surgical history Carotid artery stent Aortic valve replacement Past psychiatric history Anxiety and depression Social history Patient lives at home by himself, no history of tobacco, chews tobacco, Hospitalist HPI ROS Constitutional: reports: weakness, malaise. denies: fever, chills, sweats, other ENT: denies: ear pain, ear discharge, nose pain, nose discharge, nose congestion, mouth pain, mouth swelling, throat pain, throat swelling, other Respiratory: denies: cough, dry, shortness of breath, hemoptysis, SOB with excertion, pleuritic pain, sputum, wheezing, other Cardiovascular: denies: chest pain, palpitations, orthopnea, paroxysmal noc. dyspnea, edema, light headedness, other Gastrointestinal: denies: nausea, vomiting, abdominal pain, diarrhea, constipation, melena, hematochezia, other Genitourinary: denies: dysuria, frequency, incontinence, hematuria, retention, other Musculoskeletal: denies: neck pain, shoulder pain, arm pain, back pain, hand p ain, leg pain, foot pain, other Hospitalist Exam General Appearance: NAD, ill appearing Eye: PERRL, anicteric sclera ENT: normocephalic atraumatic, no oropharyngeal lesions Neck: supple, symmetric, no JVD, no thyromegaly Heart: RRR, no murmur, no gallops, no rubs Respiratory: no wheezes, no rales, no ronchi Gastrointestinal: soft, non-tender, non-distended, normal bowel sounds Extremities: no edema, 1+ LE edema Skin: normal turgor, no lesions Neurological: no focal deficits Musculoskeletal: normal tone, normal strength Psychiatric: normal affect, normal behavior Hospitalist Results Result Diagrams: 11/27/20 12:50 11/27/20 12:50 Lab results: Laboratory Last Values WBC 6.2 thou/uL (4.8-10.8) 11/27/20 12:50 RBC 4.44 mill/uL (4.70-6.10) L 11/27/20 12:50 Hgb 15.2 g/dL (14.0-18.0) 11/27/20 12:50 Hct 42.9 % (42.0-52.0) 11/27/20 12:50 MCV 96.6 fL (78.0-98.0) 11/27/20 12:50 MCH 34.3 pg (27.0-31.0) H 11/27/20 12:50 MCHC 35.5 g/dL (32.0-36.0) 11/27/20 12:50 RDW 12.2 % (11.5-14.5) 11/27/20 12:50 Plt Count 168 thou/uL (130-400) 11/27/20 12:50 MPV 7.6 fL (7.4-10.4) 11/27/20 12:50 Neutrophils % 76.5 % (42.0-75.0) H 11/27/20 12:50 Lymphocytes % 13.4 % (21.0-51.0) L 11/27/20 12:50 Monocytes % 8.8 % (0.0-10.0) 11/27/20 12:50 Eosinophils % 0.8 % (0.0-10.0) 11/27/20 12:50 Basophils % 0.5 % (0.0-1.0) 11/27/20 12:50 Neutrophils # 4.8 thou/uL (1.40-6.50) 11/27/20 12:50 Lymphocytes # 0.8 thou/uL (1.20-3.40) L 11/27/20 12:50 Monocytes # 0.6 thou/uL (0.11-0.59) H 11/27/20 12:50 Eosinophils # 0.0 thou/uL (0.0-0.7) 11/27/20 12:50 Basophils # 0.0 thou/uL (0.0-0.2) 11/27/20 12:50 Sodium 141 mmol/L (136-145) 11/27/20 12:50 Potassium 3.8 mmol/L (3.5-5.1) 11/27/20 12:50 Chloride 107 mmol/L (98-107) 11/27/20 12:50 Carbon Dioxide 26 mmol/L (23-31) 11/27/20 12:50 Anion Gap 12 mmol/L (10-20) 11/27/20 12:50 BUN 28 mg/dL (8.4-25.7) H 11/27/20 12:50 Creatinine 1.51 mg/dL (0.7-1.3) H 11/27/20 12:50 Estimated GFR (MDRD) 45 11/27/20 12:50 Glucose 198 mg/dL (83-110) H 11/27/20 12:50 Calcium 9.1 mg/dL (7.8-10.44) 11/27/20 12:50 Total Bilirubin 0.6 mg/dL (0.2-1.2) 11/27/20 12:50 AST 25 U/L (5-34) 11/27/20 12:50 ALT 40 U/L (8-55) 11/27/20 12:50 Alkaline Phosphatase 50 U/L (40-110) 11/27/20 12:50 Creatine Kinase 57 U/L (30-200) 11/27/20 12:50 Troponin I 0.023 ng/mL (< 0.028) 11/27/20 12:50 B-Natriuretic Peptide 206.5 pg/mL (0-100) H 11/27/20 12:50 Serum Total Protein 6.8 g/dL (5.8-8.1) 11/27/20 12:50 Albumin 4.1 g/dL (3.4-4.8) 11/27/20 12:50 Globulin 2.7 g/dL (2.4-3.5) 11/27/20 12:50 Albumin/Globulin Ratio 1.5 g/dL (1.2-2.2) 11/27/20 12:50 Urine Color Yellow (Yellow) 11/27/20 15:03 Urine Clarity Clear (Clear) 11/27/20 15:03 Urine pH 5.5 (5.0-9.0) 11/27/20 15:03 Ur Specific [place] 1.021 (1.002-1.036) 11/27/20 15:03 Urine Protein 70 mg/dL (Neg-Trace) A 11/27/20 15:03 Urine Glucose (UA) 500 mg/dL (Negative) A 11/27/20 15:03 Urine Ketones Negative mg/dL (Negative) 11/27/20 15:03 Urine Blood Negative (Negative) 11/27/20 15:03 Urine Nitrite Negative (Negative) 11/27/20 15:03 Urine Bilirubin Negative (Negative) 11/27/20 15:03 Urine Urobilinogen Normal mg/dL (Less than 2) 11/27/20 15:03 Ur Leukocyte Esterase Negative Richard/uL (Negative) 11/27/20 15:03 Urine RBC 0-3 HPF (0-3) 11/27/20 15:03 Urine WBC 0-3 HPF (0-3) 11/27/20 15:03 Ur Squamous Epith Cells None Seen HPF (0-3) 11/27/20 15:03 Urine Bacteria None Seen HPF (None Seen) 11/27/20 15:03 Additional comment: EKGT waves, inverted, Leads affected: I, Leads affected: aVl, Leads affected: V4, Leads affected: V5, Leads affected: V6, [place] normal, Old T wave inversions V3 through V6, new T wave inversions 1 aVL compared to 03/05/2019 Chest x-ray Status: image reviewed by me Additional Comments: Cardiomegaly Hospitalist H&P A/P (1) Generalized weakness Code(s): R53.1 - WEAKNESS Status: Acute (2) Abnormal EKG Code(s): R94.31 - ABNORMAL ELECTROCARDIOGRAM [ECG] [EKG] Status: Acute (3) History of transcatheter aortic valve replacement (TAVR) Code(s): Z95.2 - PRESENCE OF PROSTHETIC HEART VALVE Status: Chronic (4) Chronic systolic heart failure, ACC/AHA stage C Code(s): I50.22 - CHRONIC SYSTOLIC (CONGESTIVE) HEART FAILURE Status: Chronic (5) CKD (chronic kidney disease), stage III Code(s): N18.30 - CHRONIC KIDNEY DISEASE, STAGE 3 UNSPECIFIED Status: Chronic Qualifiers: Chronic kidney disease stage 3 subtype: stage 3a (GFR 45-59) Qualified Code(s): N18.31 - Chronic kidney disease, stage 3a (6) CAD (coronary artery disease) Code(s): I25.10 - ATHSCL HEART DISEASE OF [place] CORONARY ARTERY W/O ANG PCTRS Status: Chronic Qualifiers: (7) Carotid arterial disease Code(s): I77.9 - DISORDER OF ARTERIES AND ARTERIOLES, UNSPECIFIED Status: Chronic (8) DM type 2 (diabetes mellitus, type 2) Status: Chronic (9) HTN (hypertension) Code(s): I10 - ESSENTIAL (PRIMARY) HYPERTENSION Status: Chronic Qualifiers: (10) Ischemic cardiomyopathy Code(s): I25.5 - ISCHEMIC CARDIOMYOPATHY Status: Chronic (11) Peripheral arterial disease Code(s): I73.9 - PERIPHERAL VASCULAR DISEASE, UNSPECIFIED Status: Chronic Plan: Observation to telemetry floor Serial cardiac enzymes x3 Cardiology consultation for abnormal EKG Echocardiography Insulin as per sliding scale Aspirin 325 mg daily Check lipid profile tomorrow Continue PT OT international sourcing manager for discharge planning, patient may need home health with PT OT His home medication will be reconciled when confirmed CODE STATUS patient is full code DVT prophylaxis Lovenox 40 mg subcu daily GI prophylaxis Protonix Dispo position plan within 24 hours Plan of care discussed with the patient and family member at bedside in emergency room.
[2020-11-27 16:45] LABS: Troponin I 0.032 ng/mL (< 0.028)
[2020-11-27 19:44] VITALS: BMI 24.9
[2020-11-27 19:45] LABS: Troponin I 0.022 ng/mL (< 0.028)
[2020-11-27] MEDS: FLU VACC QS2020-21(65YR UP)/PF 240 MCG/0.7 ML SYRINGE IM ONE (22:29)
[2020-11-28 05:38] LABS: #Eosinphils 0.1 thou/uL (0.0-0.7); #Lymphocytes 0.7 thou/uL (1.20-3.40); #Monocytes 0.4 thou/uL (0.11-0.59); #Neutrophils 3.7 thou/uL (1.40-6.50); %Basophils 0.7 % (0.0-1.0); %Eosinophils 1.5 % (0.0-10.0); %Lymphocytes 13.8 % (21.0-51.0); %Monocytes 8.5 % (0.0-10.0); %Neutrophils 75.5 % (42.0-75.0); Hemoglobin 14.7 g/dL (14.0-18.0); Mean Corpuscular HGB CONC 34.4 g/dL (32.0-36.0); Mean Corpuscular Hemoglobin 33.5 pg (27.0-31.0); Mean Corpuscular Volume 97.5 fL (78.0-98.0); Mean Platelet Volume 7.4 fL (7.4-10.4); Platelet Count 138 thou/uL (130-400); RBC Distribution Width 12.3 % (11.5-14.5); Red Blood Cell (RBC) Count 4.37 mill/uL (4.70-6.10); White Blood Cell (WBC) Count 4.9 thou/uL (4.8-10.8)
[2020-11-28 05:53] LABS: SARS-CoV-2 PCR by NAA Not Detected (NotDetected)
[2020-11-28 06:00] LABS: ALT (SGPT) 35 U/L (8-55); AST (SGOT) 24 U/L (5-34); Albumin 3.4 g/dL (3.4-4.8); Alkaline Phosphatase 42 U/L (40-110); Anion Gap 11 mmol/L (10-20); BUN (Urea Nitrogen) 19 mg/dL (8.4-25.7); Bilirubin, Total 0.9 mg/dL (0.2-1.2); Calc. Creatinine Clearance 59 mL/min (70-130); Calcium 8.2 mg/dL (7.8-10.44); Carbon Dioxide 21 mmol/L (23-31); Cardiac Risk 3.3 (Less than 4.5); Chloride 108 mmol/L (98-107); Cholesterol 116 mg/dl (< 200 Desired); Globulin 2.3 g/dL (2.4-3.5); Glucose 130 mg/dL (83-110); HDL Cholesterol 35 mg/dL (>60 Neg Risk); LDL Cholesterol, Calculated 63 mg/dL; Potassium 4.2 mmol/L (3.5-5.1); Protein, Total 5.7 g/dL (5.8-8.1); Sodium 136 mmol/L (136-145); Triglycerides 90 mg/dL (Less than 150)
[2020-11-28] MEDS: Enoxaparin Sodium 40 MG/0.4 ML SYRINGE SC SCH (09:12)
[2020-11-28] MEDS: FLU VACC QS2020-21(65YR UP)/PF 240 MCG/0.7 ML SYRINGE IM ONE (09:18)
[2020-11-28 09:57] LABS: Bacteria/HPF None Seen HPF (None Seen); Bilirubin Negative (Negative); Blood, Urine Negative (Negative); Clarity Clear (Clear); Glucose, Urine (Dipstick) 300 mg/dL (Negative); Ketone, Urine Negative (Negative); Leukocyte Negative Leu/uL (Negative); Nitrite Negative (Negative); Protein, Urine (Dipstick) 70 mg/dL (Neg-Trace); RBC/HPF 0-3 HPF (0-3); Specific Gravity, Urine 1.022 (1.002-1.036); Squamous Epithelial 0-3 HPF (0-3); Urobilinogen Normal mg/dL (Less than 2); WBC/HPF None Seen HPF (0-3)
[2020-11-28 10:04] LABS: Urine Culture Reflex No No
--- NOTE | 2020-11-28 10:22 | PDOC.HOSPP ---
- Subjective Encounter Date: 11/28/20 Encounter Time: 10:21 Subjective: uses walker, some difficulty yesterday. no dizziness, olivia\est pain - Objective Vital Signs & Weight: Vital Signs (12 hours) Temp Pulse Resp BP BP Pulse Ox 11/28/20 08:48 97.2 F L 55 L 15 146/66 H 100 11/28/20 04:00 97.8 F 56 L 16 95/54 L Weight Admit Weight 154 lb 8 oz Weight 154 lb 8 oz I&O: 11/27/20 11/28/20 11/29/20 06:59 06:59 06:59 Intake Total 70 Output Total 300 Balance -230 Result Diagrams: 11/28/20 05:19 11/28/20 05:19 Additional Labs: Accuchecks 11/28/20 11/27/20 06:33 22:19 POC Glucose 130 H 148 H Hospitalist ROS - Medication Medications: Active Medications Generic Name Dose Route Start Last Admin Trade Name Freq PRN Reason Stop Dose Admin Enoxaparin Sodium 40 mg 11/28/20 09:00 11/28/20 09:12 Enoxaparin Sodium 40 Mg/0.4 Ml Syringe SC 40 mg 0900 COCO Administration Pantoprazole Sodium 40 mg 11/28/20 09:00 11/28/20 09:13 Pantoprazole 40 Mg Tab PO 40 mg DAILY COCO Administration Hospitalist Exam Vitals: Vital Signs (12 hours) Temp Pulse Resp BP BP Pulse Ox 11/28/20 08:48 97.2 F L 55 L 15 146/66 H 100 11/28/20 04:00 97.8 F 56 L 16 95/54 L Weight Admit Weight 154 lb 8 oz Weight 154 lb 8 oz General Appearance: awake alert Neck: no JVD Heart: RRR, no murmur Respiratory: CTAB Gastrointestinal: soft, normal bowel sounds Extremities: no edema Hosp A/P (1) Generalized weakness Code(s): R53.1 - WEAKNESS Status: Acute (2) Chronic systolic heart failure, ACC/AHA stage C Code(s): I50.22 - CHRONIC SYSTOLIC (CONGESTIVE) HEART FAILURE Status: Chronic (3) History of transcatheter aortic valve replacement (TAVR) Code(s): Z95.2 - PRESENCE OF PROSTHETIC HEART VALVE Status: Chronic (4) CAD (coronary artery disease) Code(s): I25.10 - ATHSCL HEART DISEASE OF [place] CORONARY ARTERY W/O ANG PCTRS Status: Chronic Qualifiers: [place] vs. transplanted heart: [place] heart Associated angina: without angina (5) DM type 2 (diabetes mellitus, type 2) Status: Chronic Qualifiers: Diabetes mellitus termite exterminator insulin use: without termite exterminator use Diabetes mellitus complication status: with kidney complications Diabetes mellitus complication detail: with chronic kidney disease (6) HTN (hypertension) Code(s): I10 - ESSENTIAL (PRIMARY) HYPERTENSION Status: Chronic Qualifiers: Hypertension type: essential hypertension Qualified Code(s): I10 - Essential (primary) hypertension (7) Ischemic cardiomyopathy Code(s): I25.5 - ISCHEMIC CARDIOMYOPATHY Status: Chronic - Plan PT to evaluate EKG-RSR LVH with repolarization abnormality, no significant change troponins unremarkable have attempted to phone family to discuss discharge wqith no success
[2020-11-29] MEDS: Enoxaparin Sodium 40 MG/0.4 ML SYRINGE SC SCH (08:37)
[2020-11-29] MEDS ORDERED: Furosemide 20 MG TAB PO SCH (09:00)
[2020-11-29] MEDS ORDERED: Aspirin 81 mg Enteric Coated Tablet PO SCH (09:00)
[2020-11-29] MEDS ORDERED: Carvedilol 3.125 MG TAB PO SCH (09:00)
[2020-11-29] MEDS ORDERED: Clopidogrel Bisulfate 75 MG TAB PO SCH (09:00)
[2020-11-29] MEDS ORDERED: Lisinopril 10 MG TAB PO SCH (09:00)
[2020-11-29] MEDS ORDERED: Rosuvastatin 20 MG TAB PO SCH (09:00)
[2020-11-29 12:08] VITALS: BP 139/63; TEMP 98.8
--- NOTE | 2020-11-29 13:48 | PDOC.DS.DS ---
Provider Date of Admission: 11/27/20 15:57 Date of Discharge: 11/29/20 Admitting Provider: Tegan Teresa MD Consultations: Cardiology Primary Care Physician: ADIA Garcia Course Hospital Course: 80-year-old male who has chronic systolic heart failure, hypertension, diabetes type 2 who was brought to emergency room for generalized weakness, patient's niece went to clean his home and she noticed that patient was not able to walk, normally he gets around with a walker, he was feeling generalized weak, previously when patient had this type of for generalized weakness at that time patient was found with heart attack so patient's daughter was worried about and decided to bring to emergency room for evaluation, Patient has not no clue why he is in hospital, he lives at home by himself, his son lives next to his house, who prepares his medication and watch over him, Patient does not have any nausea vomiting diarrhea or chest pain or abdominal pain, patient has underlying history of peripheral arterial disease and recommended medical therapy, Today in the emergency room routine laboratory test showed normal CBC, creatinine 1.51, BNP 206 and troponin negative, urine analysis normal, chest x- ray unremarkable, This patient's last echocardiography in 2019 showed EF 25 to 30%, he has bioprosthetic aortic valve, moderate pulmonary hypertension, he had cardiac catheterization in 2019 at that time patient had multivessel CAD recommended CABG and severe ED Course: Patient is given 1 L IV fluid and aspirin During this admission his troponins remain negative, acute coronary syndrome ruled out, patient was up to his baseline, echocardiography showed EF 20 to 25%, patient was doing better, he is on room air, family member wanted to take him home, I spoke with the patient's son and who will take him home. Resuscitation Status: 11/27/20 16:29 Resuscitation Status Routine Resuscitation Status: FULL: Full Resuscitation Lab Results: 11/28/20 05:19 11/28/20 05:19 Abnormal Lab Results - Last 48 hrs 11/27/20 12:50: B-Natriuretic Peptide 206.5 H 11/27/20 15:03: Urine Protein 70 A, Urine Glucose (UA) 500 A 11/27/20 16:06: Troponin I 0.032 H 11/28/20 05:19: Chloride 108 H, Carbon Dioxide 21 L, Serum Total Protein 5.7 L, Globulin 2.3 L 11/28/20 05:19: RBC 4.37 L, MCH 33.5 H, Neutrophils % 75.5 H, Lymphocytes % 13.8 L, Lymphocytes # 0.7 L 11/28/20 09:20: Urine Protein 70 A Vitals: Vital Signs (12 hours) Temp Pulse Resp BP BP BP Pulse Ox 11/29/20 11:25 98.8 F 60 18 139/63 97 11/29/20 07:25 97.9 F 53 L 12 173/85 H 98 11/29/20 04:57 99 11/29/20 04:00 97.7 F 60 14 168/74 H 99 Weight Admit Weight 154 lb 8 oz Weight 154 lb 8 oz Physical Exam: The patient was seen and examined on the day of discharge. General Appearance: NAD, awake alert Eye: PERRL, anicteric sclera ENT: normocephalic atraumatic, no oropharyngeal lesions Neck: supple, symmetric, no JVD, no thyromegaly Respiratory: no wheezes, no rales, no ronchi Cardiovascular: no gallops, no rubs, murmur present Gastrointestinal: soft, non-tender, non-distended Extremities: no cyanosis, no clubbing, no edema Skin: normal turgor, no lesions Neurological: no focal deficits Musculoskeletal: normal tone, normal strength PSYCH: normal affect, normal behavior Problem (1) Generalized weakness Code(s): R53.1 - WEAKNESS Status: Acute (2) Abnormal EKG Code(s): R94.31 - ABNORMAL ELECTROCARDIOGRAM [ECG] [EKG] Status: Acute (3) History of transcatheter aortic valve replacement (TAVR) Code(s): Z95.2 - PRESENCE OF PROSTHETIC HEART VALVE Status: Chronic (4) Chronic systolic heart failure, ACC/AHA stage C Code(s): I50.22 - CHRONIC SYSTOLIC (CONGESTIVE) HEART FAILURE Status: Chronic (5) CKD (chronic kidney disease), stage III Code(s): N18.30 - CHRONIC KIDNEY DISEASE, STAGE 3 UNSPECIFIED Status: Chronic Qualifiers: Chronic kidney disease stage 3 subtype: stage 3a (GFR 45-59) Qualified Code(s): N18.31 - Chronic kidney disease, stage 3a (6) CAD (coronary artery disease) Code(s): I25.10 - ATHSCL HEART DISEASE OF [place] CORONARY ARTERY W/O ANG PCTRS Status: Chronic Qualifiers: [place] vs. transplanted heart: [place] heart Associated angina: without angina (7) Carotid arterial disease Code(s): I77.9 - DISORDER OF ARTERIES AND ARTERIOLES, UNSPECIFIED Status: Chronic (8) DM type 2 (diabetes mellitus, type 2) Status: Chronic Qualifiers: Diabetes mellitus usp insulin use: without usp use Diabetes mellitus complication status: with kidney complications Diabetes mellitus complication detail: with chronic kidney disease (9) HTN (hypertension) Code(s): I10 - ESSENTIAL (PRIMARY) HYPERTENSION Status: Chronic Qualifiers: Hypertension type: essential hypertension Qualified Code(s): I10 - Essential (primary) hypertension (10) Ischemic cardiomyopathy Code(s): I25.5 - ISCHEMIC CARDIOMYOPATHY Status: Chronic (11) Peripheral arterial disease Code(s): I73.9 - PERIPHERAL VASCULAR DISEASE, UNSPECIFIED Status: Chronic Plan Home Medications: Medication Instructions Recorded Confirmed Type Carvedilol [Coreg] 6.25 mg PO BID #60 tab 11/26/17 03/05/19 Rx Aspirin [Adult Aspirin] 81 mg PO DAILY 02/01/18 03/05/19 History Citalopram Hydrobromide 20 mg PO DAILY 02/01/18 03/05/19 History [Citalopram HBr] Clopidogrel Bisulfate [Plavix] 75 mg PO DAILY 02/01/18 03/05/19 History Hydrochlorothiazide 25 mg PO DAILY 02/01/18 03/05/19 History Rosuvastatin Calcium [Crestor] 20 mg PO DAILY 02/01/18 03/05/19 History glyBURIDE [Glyburide] 5 mg PO BID 02/01/18 03/05/19 History Lisinopril 2.5 mg PO DAILY #30 tablet 03/07/19 Rx Furosemide [Lasix] 20 mg PO DAILY #30 tab 03/10/19 Rx Allergies: No Known Drug Allergies Allergy (Verified 12/25/17 04:37) Activity:: Activity as Tolerated Nourishment:: Diabetic Diet Therapies:: Not Applicable Equipment/Supplies:: Not Applicable IV Therapy:: Not Applicable Referrals: Radha Rivera FNP [Primary Care Provider] - Disposition: HOME Quality CORE MEASURES:: N/A
== END 2020-11-29 15:35 | disposition home or self-care (01) ==
LOC: ERS 11:54 → ERHOLD 15:57 → 3SE 18:56
PROVIDERS: ADMIT Internal Medicine; ATTEND Internal Medicine
DX: R53.1 Weakness (principal); R94.31 Abnormal electrocardiogram [ECG] [EKG]; I13.0 Hypertensive heart and chronic kidney disease with heart failure and stage 1 through stage 4 chronic kidney disease, or unspecified chronic kidney disease; E11.22 Type 2 diabetes mellitus with diabetic chronic kidney disease; N18.31 Chronic kidney disease, stage 3a; I50.22 Chronic systolic (congestive) heart failure; I25.10 Atherosclerotic heart disease of native coronary artery without angina pectoris; I77.9 Disorder of arteries and arterioles, unspecified; I25.5 Ischemic cardiomyopathy; E11.51 Type 2 diabetes mellitus with diabetic peripheral angiopathy without gangrene; I27.20 Pulmonary hypertension, unspecified; I35.0 Nonrheumatic aortic (valve) stenosis; E78.5 Hyperlipidemia, unspecified; F41.9 Anxiety disorder, unspecified; F32.9 Major depressive disorder, single episode, unspecified; F17.220 Nicotine dependence, chewing tobacco, uncomplicated; Z79.02 Long term (current) use of antithrombotics/antiplatelets; Z79.82 Long term (current) use of aspirin; Z79.84 Long term (current) use of oral hypoglycemic drugs; Z79.899 Other long term (current) drug therapy; Z95.2 Presence of prosthetic heart valve; Z20.822 Contact with and (suspected) exposure to COVID-19
CPT/HCPCS: 71045; 80053 ×2; 80061; 81001; 82550; 82962 ×3; 83880; 84484 ×2; 85025 ×2; 93005; 93306; 97116 ×2; 97139 ×2; 99285; U0003; U0005; 36415; 36416; 81003; 81015; 87635; 96372; G0378; J1650; J1815

== ENCOUNTER 2022-04-10 06:06 | Inpatient (IN) | payer MEDICARE, OTHER ==
[2022-04-10 06:38] LABS: #Lymphocytes 0.5 thou/uL (1.20-3.40); #Monocytes 0.9 thou/uL (0.11-0.59); %Eosinophils 0.2 % (0.0-10.0); %Lymphocytes 3.4 % (21.0-51.0); %Neutrophils 90.4 % (42.0-75.0); Hemoglobin 16.6 g/dL (14.0-18.0); Mean Corpuscular HGB CONC 33.6 g/dL (32.0-36.0); Mean Corpuscular Hemoglobin 31.8 pg (27.0-31.0); Mean Corpuscular Volume 94.6 fL (78.0-98.0); Mean Platelet Volume 7.7 fL (7.4-10.4); Platelet Count 221 thou/uL (130-400); RBC Distribution Width 12.1 % (11.5-14.5); Red Blood Cell (RBC) Count 5.24 mill/uL (4.70-6.10); White Blood Cell (WBC) Count 15.5 thou/uL (4.8-10.8)
[2022-04-10 06:55] LABS: ALT (SGPT) 16 U/L (8-55); AST (SGOT) 18 U/L (5-34); Albumin 3.7 g/dL (3.4-4.8); Alkaline Phosphatase 114 U/L (40-110); Anion Gap 17 mmol/L (10-20); BUN (Urea Nitrogen) 21 mg/dL (8.4-25.7); Bilirubin, Total 1.6 mg/dL (0.2-1.2); CK (CPK) 570 U/L (30-200); Calc. Creatinine Clearance 0 mL/min (70-130); Calcium 9.4 mg/dL (7.8-10.44); Carbon Dioxide 22 mmol/L (23-31); Chloride 101 mmol/L (98-107); Estimated GFR 41; Globulin 2.7 g/dL (2.4-3.5); Glucose 394 mg/dL (83-110); Magnesium 1.9 mg/dL (1.6-2.6); Potassium 4.3 mmol/L (3.5-5.1); Protein, Total 6.4 g/dL (5.8-8.1); Sodium 136 mmol/L (136-145)
[2022-04-10 06:59] LABS: INR-International Normal Ratio 1.1
[2022-04-10 07:00] LABS: PTT 37.8 sec (22.9-36.1)
[2022-04-10 07:17] LABS: CKMB 5.6 ng/mL (0-6.6)
[2022-04-10] MEDS ORDERED: Aspirin Chewable 81 MG TAB ONE (07:29)
[2022-04-10 07:42] LABS: Bilirubin Negative (Negative); Blood, Urine 2+ (Negative); Clarity Turbid (Clear); Glucose, Urine (Dipstick) Greater than 1000 mg/dL (Negative); Ketone, Urine 10 mg/dL (Negative); Leukocyte 75 Leu/uL (Negative); Nitrite Negative (Negative); Protein, Urine (Dipstick) 300 mg/dL (Neg-Trace); RBC/HPF 0-3 HPF (0-3); Specific Gravity, Urine 1.029 (1.002-1.036); Squamous Epithelial 0-3 HPF (0-3); Urobilinogen Normal mg/dL (Less than 2)
[2022-04-10 07:55] LABS: Bacteria/HPF 2+ HPF (None Seen)
[2022-04-10] MEDS ORDERED: ISOVUE-370 76%-LOCM 1 ML ONE (08:00)
[2022-04-10 09:26] LABS: SARS-CoV-2 NAA Rapid Test Not Detected (NotDetected)
[2022-04-10] MEDS ORDERED: glipiZIDE 5 MG TAB PO SCH (09:45)
[2022-04-10 10:06] LABS: Troponin I 0.213 ng/mL (< 0.028)
[2022-04-10] MEDS ORDERED: Acetaminophen 325 MG TAB PO PRN (10:33)
[2022-04-10] MEDS ORDERED: Clopidogrel Bisulfate 75 MG TAB PO SCH (11:00)
[2022-04-10] MEDS ORDERED: Clopidogrel Bisulfate 75 MG TAB ONE (11:39)
[2022-04-10] MEDS ORDERED: HumaLOG 300 UNITS/3 ML VIAL ONE (11:53)
[2022-04-10] MEDS ORDERED: Dextrose 5% in Water 1,000 ML IV PRN (12:09)
[2022-04-10] MEDS ORDERED: HumaLOG 300 UNITS/3 ML VIAL SC PRN (12:09)
[2022-04-10] MEDS ORDERED: Dextrose 50% Abboject 50 ML SYRINGE SLOW IVP PRN (12:09)
[2022-04-10] MEDS ORDERED: HumaLOG 300 UNITS/3 ML VIAL SC SCH (12:15)
[2022-04-10 13:34] LABS: Troponin I 0.239 ng/mL (< 0.028)
[2022-04-10] MEDS: Sodium Chloride 0.9% 1,000 ML IV SCH (19:39)
[2022-04-10] MEDS: Rosuvastatin 20 MG TAB PO SCH (21:50)
[2022-04-10] MEDS: Famotidine 20 MG TAB PO SCH (21:50)
[2022-04-10] MEDS: glipiZIDE 5 MG TAB PO SCH (21:50)
[2022-04-10] MEDS: HumaLOG 300 UNITS/3 ML VIAL SC PRN (21:51)
[2022-04-11 03:23] LABS: Bilirubin Negative (Negative); Blood, Urine 2+ (Negative); Clarity Turbid (Clear); Glucose, Urine (Dipstick) Greater than 1000 mg/dL (Negative); Ketone, Urine Negative (Negative); Leukocyte 500 Leu/uL (Negative); Nitrite Negative (Negative); Protein, Urine (Dipstick) 200 mg/dL (Neg-Trace); Specific Gravity, Urine 1.037 (1.002-1.036); Urobilinogen Normal mg/dL (Less than 2); pH, Urine 6.5 (5.0-9.0)
[2022-04-11 03:25] LABS: Bacteria/HPF 3+ HPF (None Seen); Squamous Epithelial 0-3 HPF (0-3)
[2022-04-11 03:26] LABS: Urine Culture Reflex Yes Yes
[2022-04-11 05:32] LABS: #Eosinphils 0.3 thou/uL (0.0-0.7); #Lymphocytes 1.1 thou/uL (1.20-3.40); #Neutrophils 8.1 thou/uL (1.40-6.50); %Basophils 0.4 % (0.0-1.0); %Eosinophils 2.4 % (0.0-10.0); %Lymphocytes 10.2 % (21.0-51.0); %Monocytes 9.6 % (0.0-10.0); %Neutrophils 77.4 % (42.0-75.0); Hemoglobin 15.3 g/dL (14.0-18.0); Mean Corpuscular HGB CONC 32.8 g/dL (32.0-36.0); Mean Corpuscular Hemoglobin 31.7 pg (27.0-31.0); Mean Corpuscular Volume 96.9 fL (78.0-98.0); Mean Platelet Volume 7.5 fL (7.4-10.4); Platelet Count 204 thou/uL (130-400); RBC Distribution Width 12.4 % (11.5-14.5); Red Blood Cell (RBC) Count 4.82 mill/uL (4.70-6.10); White Blood Cell (WBC) Count 10.5 thou/uL (4.8-10.8)
[2022-04-11 05:55] LABS: Anion Gap 13 mmol/L (10-20); BUN (Urea Nitrogen) 23 mg/dL (8.4-25.7); Calc. Creatinine Clearance 49 mL/min (70-130); Carbon Dioxide 23 mmol/L (23-31); Cardiac Risk 4.7 (Less than 4.5); Chloride 105 mmol/L (98-107); Cholesterol 180 mg/dl (< 200 Desired); Estimated GFR 64; Glucose 134 mg/dL (83-110); HDL Cholesterol 38 mg/dL (>60 Neg Risk); LDL Cholesterol, Calculated 125 mg/dL; Potassium 3.2 mmol/L (3.5-5.1); Sodium 138 mmol/L (136-145); Triglycerides 84 mg/dL (Less than 150)
[2022-04-11] MEDS ORDERED: Clopidogrel Bisulfate 75 MG TAB PO SCH (09:00)
[2022-04-11] MEDS ORDERED: Enoxaparin Sodium 40 MG/0.4 ML SYRINGE SC SCH (09:00)
[2022-04-11] MEDS: Sodium Chloride 0.9% 1,000 ML IV SCH ×2 (09:05→21:11)
[2022-04-11] MEDS: Hydrochlorothiazide 25 MG TAB PO SCH (09:06)
[2022-04-11] MEDS: Aspirin 81 mg Enteric Coated Tablet PO SCH (09:06)
[2022-04-11] MEDS: Lisinopril 20 MG TAB PO SCH (09:06)
[2022-04-11] MEDS ORDERED: Cipro 250 MG TAB PO SCH (11:45)
[2022-04-11] MEDS: HumaLOG 300 UNITS/3 ML VIAL SC PRN ×3 (13:25→21:36)
[2022-04-11] MEDS ORDERED: Carvedilol 6.25 MG TAB PO SCH (13:37)
[2022-04-11] MEDS: Famotidine 20 MG TAB PO SCH (21:00)
[2022-04-11] MEDS: Enoxaparin Sodium 80 MG/0.8 ML SYRINGE SC SCH (21:00)
[2022-04-11] MEDS: Carvedilol 6.25 MG TAB PO SCH (21:00)
[2022-04-11] MEDS: Rosuvastatin 20 MG TAB PO SCH (21:00)
[2022-04-11] MEDS: Cipro 250 MG TAB PO SCH (21:00)
[2022-04-12] MEDS: Cipro 250 MG TAB PO SCH ×2 (05:56→20:33)
[2022-04-12] MEDS: Sodium Chloride 0.9% 1,000 ML IV SCH (05:57)
[2022-04-12] MEDS: glipiZIDE 5 MG TAB PO SCH (06:32)
[2022-04-12 07:41] LABS: #Eosinphils 0.4 thou/uL (0.0-0.7); #Monocytes 0.8 thou/uL (0.11-0.59); #Neutrophils 6.1 thou/uL (1.40-6.50); %Basophils 0.4 % (0.0-1.0); %Eosinophils 4.7 % (0.0-10.0); %Lymphocytes 11.7 % (21.0-51.0); %Monocytes 9.3 % (0.0-10.0); %Neutrophils 73.9 % (42.0-75.0); Hemoglobin 14.4 g/dL (14.0-18.0); Mean Corpuscular Hemoglobin 32.3 pg (27.0-31.0); Mean Corpuscular Volume 95.1 fL (78.0-98.0); Mean Platelet Volume 7.8 fL (7.4-10.4); Platelet Count 189 thou/uL (130-400); Red Blood Cell (RBC) Count 4.47 mill/uL (4.70-6.10); White Blood Cell (WBC) Count 8.3 thou/uL (4.8-10.8)
[2022-04-12 08:04] LABS: Anion Gap 13 mmol/L (10-20); BUN (Urea Nitrogen) 18 mg/dL (8.4-25.7); Calc. Creatinine Clearance 65 mL/min (70-130); Calcium 8.5 mg/dL (7.8-10.44); Carbon Dioxide 22 mmol/L (23-31); Chloride 106 mmol/L (98-107); Estimated GFR 86; Glucose 98 mg/dL (83-110); Potassium 3.1 mmol/L (3.5-5.1); Sodium 138 mmol/L (136-145)
[2022-04-12] MEDS: Enoxaparin Sodium 80 MG/0.8 ML SYRINGE SC SCH ×2 (08:57→20:34)
[2022-04-12] MEDS: Aspirin 81 mg Enteric Coated Tablet PO SCH (08:57)
[2022-04-12] MEDS: Lisinopril 20 MG TAB PO SCH (08:57)
[2022-04-12] MEDS: Carvedilol 6.25 MG TAB PO SCH ×2 (08:57→20:33)
[2022-04-12] MEDS: Hydrochlorothiazide 25 MG TAB PO SCH (08:57)
[2022-04-12] MEDS: HumaLOG 300 UNITS/3 ML VIAL SC PRN ×3 (12:47→21:34)
[2022-04-12] MEDS: Senokot S 8.6-50 MG TAB PO SCH (20:27)
[2022-04-12] MEDS: Famotidine 20 MG TAB PO SCH (20:33)
[2022-04-12] MEDS: Rosuvastatin 20 MG TAB PO SCH (20:33)
[2022-04-13 05:13] LABS: #Eosinphils 0.3 thou/uL (0.0-0.7); #Lymphocytes 0.9 thou/uL (1.20-3.40); #Monocytes 0.6 thou/uL (0.11-0.59); %Basophils 0.4 % (0.0-1.0); %Eosinophils 4.3 % (0.0-10.0); %Lymphocytes 13.1 % (21.0-51.0); %Monocytes 8.9 % (0.0-10.0); %Neutrophils 73.4 % (42.0-75.0); Hemoglobin 15.7 g/dL (14.0-18.0); Mean Corpuscular HGB CONC 34.3 g/dL (32.0-36.0); Mean Corpuscular Hemoglobin 32.3 pg (27.0-31.0); Mean Corpuscular Volume 94.2 fL (78.0-98.0); Mean Platelet Volume 7.5 fL (7.4-10.4); Platelet Count 211 thou/uL (130-400); RBC Distribution Width 11.8 % (11.5-14.5); Red Blood Cell (RBC) Count 4.84 mill/uL (4.70-6.10); White Blood Cell (WBC) Count 6.8 thou/uL (4.8-10.8)
[2022-04-13 05:36] LABS: Anion Gap 13 mmol/L (10-20); BUN (Urea Nitrogen) 17 mg/dL (8.4-25.7); Calc. Creatinine Clearance 59 mL/min (70-130); Carbon Dioxide 23 mmol/L (23-31); Chloride 105 mmol/L (98-107); Estimated GFR 79; Glucose 155 mg/dL (83-110); Potassium 3.7 mmol/L (3.5-5.1); Sodium 137 mmol/L (136-145)
[2022-04-13] MEDS: Cipro 250 MG TAB PO SCH ×2 (05:43→20:20)
[2022-04-13] MEDS: Carvedilol 6.25 MG TAB PO SCH ×2 (08:29→20:20)
[2022-04-13] MEDS: Lisinopril 20 MG TAB PO SCH (08:29)
[2022-04-13] MEDS: Senokot S 8.6-50 MG TAB PO SCH ×2 (08:29→20:20)
[2022-04-13] MEDS: Aspirin 81 mg Enteric Coated Tablet PO SCH (08:29)
[2022-04-13] MEDS: glipiZIDE 5 MG TAB PO SCH (08:29)
[2022-04-13] MEDS: Hydrochlorothiazide 25 MG TAB PO SCH (08:29)
[2022-04-13] MEDS: Enoxaparin Sodium 80 MG/0.8 ML SYRINGE SC SCH (08:29)
[2022-04-13] MEDS: Polyethylene Glycol 3350 17 GM Packet PO SCH (08:29)
[2022-04-13] MEDS: HumaLOG 300 UNITS/3 ML VIAL SC PRN ×3 (11:39→20:21)
[2022-04-13] MEDS: Apixaban 5 MG TAB PO SCH (20:20)
[2022-04-13] MEDS: Famotidine 20 MG TAB PO SCH (20:20)
[2022-04-13] MEDS: Rosuvastatin 20 MG TAB PO SCH (20:20)
[2022-04-14 05:05] LABS: #Eosinphils 0.2 thou/uL (0.0-0.7); #Lymphocytes 0.8 thou/uL (1.20-3.40); #Monocytes 0.6 thou/uL (0.11-0.59); #Neutrophils 4.3 thou/uL (1.40-6.50); %Basophils 0.3 % (0.0-1.0); %Eosinophils 3.6 % (0.0-10.0); %Lymphocytes 13.7 % (21.0-51.0); %Monocytes 10.8 % (0.0-10.0); %Neutrophils 71.6 % (42.0-75.0); Hemoglobin 16.5 g/dL (14.0-18.0); Mean Corpuscular HGB CONC 32.8 g/dL (32.0-36.0); Mean Corpuscular Hemoglobin 31.2 pg (27.0-31.0); Mean Corpuscular Volume 94.9 fL (78.0-98.0); Mean Platelet Volume 7.4 fL (7.4-10.4); Platelet Count 193 thou/uL (130-400); Red Blood Cell (RBC) Count 5.28 mill/uL (4.70-6.10); White Blood Cell (WBC) Count 5.9 thou/uL (4.8-10.8)
[2022-04-14 05:25] LABS: Anion Gap 14 mmol/L (10-20); BUN (Urea Nitrogen) 18 mg/dL (8.4-25.7); Calc. Creatinine Clearance 58 mL/min (70-130); Carbon Dioxide 22 mmol/L (23-31); Chloride 103 mmol/L (98-107); Estimated GFR 77; Glucose 181 mg/dL (83-110); Potassium 3.8 mmol/L (3.5-5.1); Sodium 135 mmol/L (136-145)
[2022-04-14] MEDS: Cipro 250 MG TAB PO SCH ×2 (05:44→20:51)
[2022-04-14] MEDS: HumaLOG 300 UNITS/3 ML VIAL SC PRN ×3 (05:46→18:24)
[2022-04-14] MEDS: Polyethylene Glycol 3350 17 GM Packet PO SCH (08:55)
[2022-04-14] MEDS: Carvedilol 6.25 MG TAB PO SCH ×2 (08:55→20:51)
[2022-04-14] MEDS: Lisinopril 20 MG TAB PO SCH (08:56)
[2022-04-14] MEDS: Apixaban 5 MG TAB PO SCH ×2 (08:56→20:51)
[2022-04-14] MEDS: glipiZIDE 5 MG TAB PO SCH (08:56)
[2022-04-14] MEDS: Aspirin 81 mg Enteric Coated Tablet PO SCH (08:56)
[2022-04-14] MEDS: Senokot S 8.6-50 MG TAB PO SCH ×2 (08:56→20:51)
[2022-04-14] MEDS: Hydrochlorothiazide 25 MG TAB PO SCH (08:56)
[2022-04-14] MEDS: Famotidine 20 MG TAB PO SCH (20:51)
[2022-04-14] MEDS: Rosuvastatin 20 MG TAB PO SCH (20:51)
[2022-04-15] MEDS: Cipro 250 MG TAB PO SCH ×2 (05:35→20:47)
[2022-04-15] MEDS: HumaLOG 300 UNITS/3 ML VIAL SC PRN ×4 (05:47→21:59)
[2022-04-15] MEDS: Polyethylene Glycol 3350 17 GM Packet PO SCH (08:39)
[2022-04-15] MEDS: Carvedilol 6.25 MG TAB PO SCH ×2 (08:40→20:47)
[2022-04-15] MEDS: Lisinopril 20 MG TAB PO SCH (08:40)
[2022-04-15] MEDS: Hydrochlorothiazide 25 MG TAB PO SCH (08:40)
[2022-04-15] MEDS: Senokot S 8.6-50 MG TAB PO SCH ×2 (08:40→20:47)
[2022-04-15] MEDS: Aspirin 81 mg Enteric Coated Tablet PO SCH (08:41)
[2022-04-15] MEDS: glipiZIDE 5 MG TAB PO SCH (08:41)
[2022-04-15] MEDS: Apixaban 5 MG TAB PO SCH ×2 (08:41→20:47)
[2022-04-15] MEDS: Rosuvastatin 20 MG TAB PO SCH (20:47)
[2022-04-15] MEDS: Famotidine 20 MG TAB PO SCH (20:47)
[2022-04-16] MEDS: Cipro 250 MG TAB PO SCH (05:06)
[2022-04-16] MEDS: HumaLOG 300 UNITS/3 ML VIAL SC PRN ×3 (06:07→20:05)
[2022-04-16] MEDS ORDERED: Insulin Glargine 30 UNITS/0.3 ML VIAL SC SCH (07:00)
[2022-04-16] MEDS: Hydrochlorothiazide 25 MG TAB PO SCH (08:22)
[2022-04-16] MEDS: Aspirin 81 mg Enteric Coated Tablet PO SCH (08:23)
[2022-04-16] MEDS: Apixaban 5 MG TAB PO SCH ×2 (08:23→20:05)
[2022-04-16] MEDS: glipiZIDE 5 MG TAB PO SCH ×2 (08:23→15:45)
[2022-04-16] MEDS: Carvedilol 6.25 MG TAB PO SCH ×2 (08:24→20:05)
[2022-04-16] MEDS: Lisinopril 20 MG TAB PO SCH (08:24)
[2022-04-16] MEDS: Polyethylene Glycol 3350 17 GM Packet PO SCH (08:25)
[2022-04-16] MEDS: Senokot S 8.6-50 MG TAB PO SCH ×2 (08:26→20:05)
[2022-04-16] MEDS: Famotidine 20 MG TAB PO SCH (20:05)
[2022-04-16] MEDS: Rosuvastatin 20 MG TAB PO SCH (20:05)
[2022-04-17 08:18] VITALS: TEMP 98.1
[2022-04-17] MEDS: Senokot S 8.6-50 MG TAB PO SCH (09:05)
[2022-04-17] MEDS: Hydrochlorothiazide 25 MG TAB PO SCH (09:05)
[2022-04-17] MEDS: glipiZIDE 5 MG TAB PO SCH (09:06)
[2022-04-17] MEDS: Lisinopril 20 MG TAB PO SCH (09:06)
[2022-04-17] MEDS: Aspirin 81 mg Enteric Coated Tablet PO SCH (09:06)
[2022-04-17] MEDS: Apixaban 5 MG TAB PO SCH (09:07)
[2022-04-17] MEDS: Polyethylene Glycol 3350 17 GM Packet PO SCH (09:07)
[2022-04-17] MEDS: Carvedilol 6.25 MG TAB PO SCH (09:07)
[2022-04-17 11:52] VITALS: BP 133/66
[2022-04-17] MEDS: HumaLOG 300 UNITS/3 ML VIAL SC PRN (13:10)
== END 2022-04-17 16:25 | DRG 69 ==
LOC: ERS 06:06 → ERHOLD 08:39 → OBSVTOIN 09:19 → NEURO 14:12
PROVIDERS: ADMIT Internal Medicine; ATTEND Internal Medicine
DX: G45.9 Transient cerebral ischemic attack, unspecified (principal); I50.22 Chronic systolic (congestive) heart failure; N17.9 Acute kidney failure, unspecified; N30.00 Acute cystitis without hematuria; Z20.822 Contact with and (suspected) exposure to COVID-19; I65.22 Occlusion and stenosis of left carotid artery; I48.0 Paroxysmal atrial fibrillation; I25.10 Atherosclerotic heart disease of native coronary artery without angina pectoris; I25.5 Ischemic cardiomyopathy; R53.81 Other malaise; I11.0 Hypertensive heart disease with heart failure; R29.810 Facial weakness; R47.1 Dysarthria and anarthria; I49.1 Atrial premature depolarization; R29.703 NIHSS score 3; E78.5 Hyperlipidemia, unspecified; H40.9 Unspecified glaucoma; E78.00 Pure hypercholesterolemia, unspecified; E11.51 Type 2 diabetes mellitus with diabetic peripheral angiopathy without gangrene; F01.50 Vascular dementia, unspecified severity, without behavioral disturbance, psychotic disturbance, mood disturbance, and anxiety; Z95.2 Presence of prosthetic heart valve; Z79.899 Other long term (current) drug therapy; Z79.82 Long term (current) use of aspirin; Z79.02 Long term (current) use of antithrombotics/antiplatelets; Z95.5 Presence of coronary angioplasty implant and graft
CPT/HCPCS: 36415; 36416; 70450; 70496; 70498; 70551; 71045; 72125; 80048; 80053; 80061; 81001; 81003; 81015; 82010; 82550; 82553; 83735; 83880; 84484; 85025; 85610; 85730; 87077; 87086; 87186; 90471; 90732; 93005; 93010; G0009; J1650; J1815; J7050; Q9966; U0002; U0003; U0005

== ENCOUNTER 2023-04-30 14:09 | Inpatient (IN) | payer MEDICARE, OTHER, SELFPAY ==
[2023-04-30 14:45] LABS: #Eosinphils 0.1 thou/uL (0.0-0.7); #Monocytes 0.9 thou/uL (0.11-0.59); #Neutrophils 6.9 thou/uL (1.40-6.50); %Basophils 0.2 % (0.0-1.0); %Eosinophils 0.7 % (0.0-10.0); %Lymphocytes 6.2 % (21.0-51.0); %Monocytes 10.4 % (0.0-10.0); Hemoglobin 12.4 g/dL (14.0-18.0); Mean Corpuscular HGB CONC 32.5 g/dL (32.0-36.0); Mean Corpuscular Hemoglobin 31.1 pg (27.0-31.0); Mean Corpuscular Volume 95.5 fl (78.0-98.0); Mean Platelet Volume 9.7 fL (7.4-10.4); Platelet Count 249 10x3/uL (130-400); RBC Distribution Width 14.5 % (11.5-14.5); Red Blood Cell (RBC) Count 3.99 mill/uL (4.70-6.10); White Blood Cell (WBC) Count 8.4 10x3/uL (4.8-10.8)
[2023-04-30 15:24] LABS: ALT (SGPT) 63 U/L (8-55); AST (SGOT) 48 U/L (5-34); Alkaline Phosphatase 105 U/L (40-110); Anion Gap 14 mmol/L (10-20); BUN (Urea Nitrogen) 55 mg/dL (8.4-25.7); Bilirubin, Total 0.5 mg/dL (0.2-1.2); Calc. Creatinine Clearance 0 mL/min (70-130); Carbon Dioxide 20 mmol/L (23-31); Chloride 110 mmol/L (98-107); Estimated GFR 49; Globulin 2.8 g/dL (2.4-3.5); Potassium 3.5 mmol/L (3.5-5.1); Protein, Total 5.8 g/dL (5.8-8.1); Sodium 140 mmol/L (136-145)
[2023-04-30 15:31] LABS: CKMB 1.7 ng/mL (0-6.6)
[2023-04-30 15:54] LABS: Glucose 31 mg/dL (83-110)
[2023-04-30] MEDS ORDERED: Dextrose 50% Abboject 50 ML SYRINGE ONE ×2 (15:56→19:34)
[2023-04-30 16:27] LABS: Bilirubin Negative (Negative); Blood, Urine Moderate (Negative); Glucose, Urine (Dipstick) 250 mg/dL (Negative); Ketone, Urine Negative (Negative); Leukocyte Large (Negative); Nitrite Positive (Negative); Protein, Urine (Dipstick) 30 mg/dL (Neg-Trace); Specific Gravity, Urine 1.025 (1.005-1.030); Urobilinogen 0.2 mg/dL (Less than 2); pH, Urine 5.5 (5.0-9.0)
[2023-04-30 16:34] LABS: Clarity Cloudy (Clear)
[2023-04-30 16:38] LABS: Bacteria/HPF 4+ HPF (None Seen); CAUTI Indications for Culture Alt mental st,lethar; Squamous Epithelial 0-3 HPF (0-3); WBC/HPF Greater Than 50 HPF (0-3)
[2023-04-30 16:39] LABS: Urine Culture Reflex Yes Yes
[2023-04-30] MEDS ORDERED: Ondansetron ODT 4 MG TAB PO PRN (19:01)
[2023-04-30] MEDS ORDERED: Senokot S 8.6-50 MG TAB PO PRN (19:01)
[2023-04-30] MEDS ORDERED: Calcium Carbonate 500 MG ChewTAB PO PRN (19:01)
[2023-04-30] MEDS ORDERED: Acetaminophen 325 MG TAB PO PRN (19:01)
[2023-04-30] MEDS ORDERED: Ondansetron PF 4 MG/2 ML Vial IVP PRN (19:01)
[2023-04-30 21:27] VITALS: BMI 24.0
[2023-04-30] MEDS: Famotidine 20 MG TAB PO SCH (22:17)
[2023-04-30] MEDS: Carvedilol 6.25 MG TAB PO SCH (22:17)
[2023-04-30] MEDS: Rosuvastatin 20 MG TAB PO SCH (22:17)
[2023-04-30] MEDS: Apixaban 5 MG TAB PO SCH (22:18)
[2023-04-30] MEDS: Dextrose 5%-Lactated Ringers 1,000 ML IV SCH (22:18)
[2023-04-30] MEDS: Famotidine/PF 20 mg/2ml Vial SLOW IVP SCH (22:26)
[2023-04-30 23:59] LABS: Troponin I 0.103 ng/mL (< 0.028)
[2023-05-01 05:07] LABS: #Eosinphils 0.1 thou/uL (0.0-0.7); #Monocytes 0.9 thou/uL (0.11-0.59); #Neutrophils 6.8 thou/uL (1.40-6.50); %Basophils 0.2 % (0.0-1.0); %Eosinophils 1.1 % (0.0-10.0); %Lymphocytes 6.3 % (21.0-51.0); %Monocytes 11.2 % (0.0-10.0); %Neutrophils 80.7 % (42.0-75.0); Hemoglobin 12.3 g/dL (14.0-18.0); Mean Corpuscular HGB CONC 31.4 g/dL (32.0-36.0); Mean Platelet Volume 10.2 fL (7.4-10.4); Platelet Count 204 10x3/uL (130-400); RBC Distribution Width 14.5 % (11.5-14.5); Red Blood Cell (RBC) Count 3.97 mill/uL (4.70-6.10); White Blood Cell (WBC) Count 8.4 10x3/uL (4.8-10.8)
[2023-05-01 05:30] LABS: Anion Gap 15 mmol/L (10-20); BUN (Urea Nitrogen) 46 mg/dL (8.4-25.7); Calc. Creatinine Clearance 43 mL/min (70-130); Calcium 8.6 mg/dL (7.8-10.44); Carbon Dioxide 17 mmol/L (23-31); Chloride 110 mmol/L (98-107); Estimated GFR 58; Glucose 94 mg/dL (83-110); Potassium 3.6 mmol/L (3.5-5.1); Sodium 138 mmol/L (136-145)
[2023-05-01 05:49] LABS: Mean Corpuscular Volume 98.7 fl (78.0-98.0)
[2023-05-01] MEDS: Polyethylene Glycol 3350 17 GM Packet PO SCH (09:20)
[2023-05-01] MEDS: Carvedilol 6.25 MG TAB PO SCH ×2 (09:20→21:10)
[2023-05-01] MEDS: Citalopram 20 MG TAB PO SCH (09:20)
[2023-05-01] MEDS: Apixaban 5 MG TAB PO SCH ×2 (09:20→21:10)
[2023-05-01] MEDS: Aspirin 81 mg Enteric Coated Tablet PO SCH (09:21)
[2023-05-01] MEDS: Lisinopril 20 MG TAB PO SCH (09:21)
[2023-05-01] MEDS: Hydrochlorothiazide 25 MG TAB PO SCH (09:23)
[2023-05-01] MEDS: cefTRIAXone\\ROCEPHIN 1 GM in Sodium Chloride 0.9% 100 ML IVPB SCH (09:27)
[2023-05-01] MEDS: Dextrose 5%-Lactated Ringers 1,000 ML IV SCH (16:14)
[2023-05-01] MEDS: Famotidine/PF 20 mg/2ml Vial SLOW IVP SCH (21:10)
[2023-05-01] MEDS: Rosuvastatin 20 MG TAB PO SCH (21:10)
[2023-05-01] MEDS: Famotidine 20 MG TAB PO SCH (21:10)
[2023-05-02 05:27] LABS: Anion Gap 16 mmol/L (10-20); BUN (Urea Nitrogen) 39 mg/dL (8.4-25.7); Calc. Creatinine Clearance 46 mL/min (70-130); Calcium 9.1 mg/dL (7.8-10.44); Carbon Dioxide 21 mmol/L (23-31); Chloride 108 mmol/L (98-107); Estimated GFR 63; Glucose 214 mg/dL (83-110); Potassium 3.8 mmol/L (3.5-5.1); Sodium 141 mmol/L (136-145)
[2023-05-02 07:35] LABS: #Eosinphils 0.1 thou/uL (0.0-0.7); #Monocytes 0.6 thou/uL (0.11-0.59); #Neutrophils 4.3 thou/uL (1.40-6.50); %Basophils 0.2 % (0.0-1.0); %Eosinophils 1.3 % (0.0-10.0); %Lymphocytes 6.7 % (21.0-51.0); %Monocytes 11.2 % (0.0-10.0); Hemoglobin 11.4 g/dL (14.0-18.0); Mean Corpuscular HGB CONC 34.1 g/dL (32.0-36.0); Mean Corpuscular Hemoglobin 31.1 pg (27.0-31.0); Mean Corpuscular Volume 91.3 fl (78.0-98.0); Mean Platelet Volume 10.7 fL (7.4-10.4); Platelet Count 245 10x3/uL (130-400); RBC Distribution Width 14.5 % (11.5-14.5); Red Blood Cell (RBC) Count 3.66 mill/uL (4.70-6.10); White Blood Cell (WBC) Count 5.3 10x3/uL (4.8-10.8)
[2023-05-02 08:04] LABS: Hemoglobin A1c 5.9 % (4.0-6.0)
[2023-05-02] MEDS: Polyethylene Glycol 3350 17 GM Packet PO SCH (10:07)
[2023-05-02] MEDS: Hydrochlorothiazide 25 MG TAB PO SCH (10:07)
[2023-05-02] MEDS: Lisinopril 20 MG TAB PO SCH (10:08)
[2023-05-02] MEDS: Citalopram 20 MG TAB PO SCH (10:08)
[2023-05-02] MEDS: Carvedilol 6.25 MG TAB PO SCH ×2 (10:12→21:01)
[2023-05-02] MEDS: Aspirin 81 mg Enteric Coated Tablet PO SCH (10:12)
[2023-05-02] MEDS: Apixaban 5 MG TAB PO SCH ×2 (10:12→21:01)
[2023-05-02] MEDS: cefTRIAXone\\ROCEPHIN 1 GM in Sodium Chloride 0.9% 100 ML IVPB SCH (10:13)
[2023-05-02] MEDS: Rosuvastatin 20 MG TAB PO SCH (21:01)
[2023-05-02] MEDS: Famotidine 20 MG TAB PO SCH (21:02)
[2023-05-02] MEDS: Famotidine/PF 20 mg/2ml Vial SLOW IVP SCH (21:02)
[2023-05-03 07:37] VITALS: TEMP 97.3
[2023-05-03] MEDS: Aspirin 81 mg Enteric Coated Tablet PO SCH (09:54)
[2023-05-03] MEDS: Apixaban 5 MG TAB PO SCH (09:54)
[2023-05-03] MEDS: Lisinopril 20 MG TAB PO SCH (09:54)
[2023-05-03] MEDS: Citalopram 20 MG TAB PO SCH (09:54)
[2023-05-03] MEDS: Polyethylene Glycol 3350 17 GM Packet PO SCH (09:54)
[2023-05-03] MEDS: Hydrochlorothiazide 25 MG TAB PO SCH (09:54)
[2023-05-03] MEDS: cefTRIAXone\\ROCEPHIN 1 GM in Sodium Chloride 0.9% 100 ML IVPB SCH (09:55)
[2023-05-03] MEDS: Carvedilol 6.25 MG TAB PO SCH (09:56)
[2023-05-03 14:09] VITALS: BP 161/69
== END 2023-05-03 15:54 | DRG 637 ==
LOC: ERS 14:09 → 2NO 19:14
PROVIDERS: ADMIT Student in an Organized Health Care Education/Training Program; ATTEND Family Medicine
DX: E11.649 Type 2 diabetes mellitus with hypoglycemia without coma (principal); G93.41 Metabolic encephalopathy; N39.0 Urinary tract infection, site not specified; I50.22 Chronic systolic (congestive) heart failure; I48.0 Paroxysmal atrial fibrillation; I11.0 Hypertensive heart disease with heart failure; E87.6 Hypokalemia; E78.5 Hyperlipidemia, unspecified; F03.90 Unspecified dementia, unspecified severity, without behavioral disturbance, psychotic disturbance, mood disturbance, and anxiety; I25.10 Atherosclerotic heart disease of native coronary artery without angina pectoris; Z98.890 Other specified postprocedural states; Z79.82 Long term (current) use of aspirin; Z79.899 Other long term (current) drug therapy; Z95.2 Presence of prosthetic heart valve
CPT/HCPCS: 36415; 36416; 71045; 80048; 80053; 81001; 82553; 83036; 83880; 84484; 85025; 87077; 87086; 87186; 93005; 96374; 96376; J0696; J3490; J7999

== ENCOUNTER 2023-05-22 17:44 | Inpatient (IN) | payer MEDICARE ==
[2023-05-22 18:35] LABS: #Eosinphils 0.1 thou/uL (0.0-0.7); #Monocytes 0.7 thou/uL (0.11-0.59); #Neutrophils 4.7 thou/uL (1.40-6.50); %Basophils 0.2 % (0.0-1.0); %Lymphocytes 8.2 % (21.0-51.0); %Monocytes 12.2 % (0.0-10.0); %Neutrophils 78.2 % (42.0-75.0); Hematocrit 33.1 % (42.0-52.0); Hemoglobin 10.8 g/dL (14.0-18.0); Mean Corpuscular HGB CONC 32.6 g/dL (32.0-36.0); Mean Corpuscular Hemoglobin 31.1 pg (27.0-31.0); Mean Corpuscular Volume 95.4 fl (78.0-98.0); Mean Platelet Volume 9.7 fL (7.4-10.4); Platelet Count 182 10x3/uL (130-400); RBC Distribution Width 15.9 % (11.5-14.5); Red Blood Cell (RBC) Count 3.47 mill/uL (4.70-6.10)
[2023-05-22 19:23] LABS: ALT (SGPT) 11 U/L (8-55); AST (SGOT) 22 U/L (5-34); Alkaline Phosphatase 85 U/L (40-110); Anion Gap 16 mmol/L (10-20); BUN (Urea Nitrogen) 34 mg/dL (8.4-25.7); Calc. Creatinine Clearance 0 mL/min (70-130); Calcium 8.5 mg/dL (7.8-10.44); Carbon Dioxide 19 mmol/L (23-31); Chloride 103 mmol/L (98-107); Estimated GFR 36; Globulin 3.1 g/dL (2.4-3.5); Glucose 179 mg/dL (83-110); Potassium 4.2 mmol/L (3.5-5.1); Protein, Total 6.1 g/dL (5.8-8.1); Sodium 134 mmol/L (136-145)
[2023-05-22] MEDS ORDERED: Cefepime 2 GM VIAL ONE (21:07)
[2023-05-22 21:33] LABS: Bacteria/HPF 4+ HPF (None Seen); Bilirubin Negative (Negative); Blood, Urine 2+ (Negative); CAUTI Indications for Culture Alt mental st,lethar; Clarity Extra Turbid (Clear); Glucose, Urine (Dipstick) Normal (Negative); Ketone, Urine Negative (Negative); Leukocyte 500 Leu/uL (Negative); Nitrite Negative (Negative); Protein, Urine (Dipstick) 100 mg/dL (Neg-Trace); Squamous Epithelial None Seen HPF (0-3); Urobilinogen Normal mg/dL (Less than 2); WBC/HPF Greater than 50 HPF (0-3)
[2023-05-22 21:34] LABS: Urine Culture Reflex Yes Yes
[2023-05-22] MEDS ORDERED: Vancomycin 1 GM/200 ML (FROZEN) BAG ONE (22:09)
[2023-05-22 22:18] LABS: Lactic Acid 2.6 mmol/L (0.5-2.2)
[2023-05-23] MEDS ORDERED: Ondansetron ODT 4 MG TAB PO PRN (00:13)
[2023-05-23] MEDS ORDERED: Senokot S 8.6-50 MG TAB PO PRN (00:13)
[2023-05-23] MEDS ORDERED: Dextrose 5% in Water 1,000 ML IV PRN (00:28)
[2023-05-23] MEDS ORDERED: Glucagon 1 MG/ML KIT IM PRN (00:28)
[2023-05-23] MEDS ORDERED: Dextrose 50% Abboject 50 ML SYRINGE SLOW IVP PRN (00:28)
[2023-05-23] MEDS ORDERED: Acetaminophen 650 MG Suppository ONE (01:14)
[2023-05-23] MEDS ORDERED: Piperacillin/Tazobactam 3.375 GM in Sodium Chloride 0.9% 100 ML IVPB SCH (06:00)
[2023-05-23 06:11] LABS: Hematocrit 35.1 % (42.0-52.0); Hemoglobin 11.1 g/dL (14.0-18.0); Mean Corpuscular HGB CONC 31.6 g/dL (32.0-36.0); Mean Corpuscular Hemoglobin 31.1 pg (27.0-31.0); Mean Platelet Volume 9.8 fL (7.4-10.4); Platelet Count 197 10x3/uL (130-400); RBC Distribution Width 15.6 % (11.5-14.5); Red Blood Cell (RBC) Count 3.57 mill/uL (4.70-6.10); White Blood Cell (WBC) Count 7.4 10x3/uL (4.8-10.8)
[2023-05-23 06:17] LABS: Delete Auto Diff?? YES; Manual Diff?? YES; Mean Corpuscular Volume 98.3 fl (78.0-98.0)
[2023-05-23] MEDS: Acetaminophen 325 MG TAB PO PRN ×3 (06:22→20:58)
[2023-05-23 06:25] LABS: Lactic Acid 2.2 mmol/L (0.5-2.2)
[2023-05-23 06:29] LABS: Magnesium 2.2 mg/dL (1.6-2.6)
[2023-05-23 06:31] LABS: Anion Gap 15 mmol/L (10-20); BUN (Urea Nitrogen) 35 mg/dL (8.4-25.7); Calc. Creatinine Clearance 34 mL/min (70-130); Calcium 8.5 mg/dL (7.8-10.44); Carbon Dioxide 21 mmol/L (23-31); Chloride 104 mmol/L (98-107); Estimated GFR 40; Glucose 214 mg/dL (83-110); Potassium 4.7 mmol/L (3.5-5.1); Sodium 135 mmol/L (136-145)
[2023-05-23 06:43] LABS: Anisocytosis SLIGHT = 6-15 cells HPF (0-5); Band 28 % (5-11); CellaVision Operator ID LAB.CLH1; Large Platelets 2.9 % (0-5); Lymphocytes 4 % (21-51); Macrocytosis SLIGHT = 6-15 cells HPF (0-5); Metamyelocyte 2 % (0-0); Monocytes 3 % (0-10); Neutrophil 62 % (42-75); Platelet Adequacy Comment Platelets Normal; Poikilocytosis MODERATE=16-30 cells HPF (0-5); Polychromasia SLIGHT = 2-3 cells HPF (0-2); Total Cell Count 103
[2023-05-23] MEDS: Famotidine 20 MG TAB PO SCH (08:55)
[2023-05-23] MEDS: Apixaban 5 MG TAB PO SCH ×2 (08:55→20:59)
[2023-05-23] MEDS: Aspirin 81 mg Enteric Coated Tablet PO SCH (08:55)
[2023-05-23] MEDS: Polyethylene Glycol 3350 17 GM Packet PO SCH (08:57)
[2023-05-23] MEDS: Carvedilol 6.25 MG TAB PO SCH ×2 (08:59→20:58)
[2023-05-23] MEDS: Lisinopril 20 MG TAB PO SCH (10:28)
[2023-05-23] MEDS: Hydrochlorothiazide 25 MG TAB PO SCH (10:28)
[2023-05-23] MEDS: Piperacillin/Tazobactam 3.375 GM in Sodium Chloride 0.9% 100 ML IVPB SCH ×2 (10:34→17:52)
[2023-05-23] MEDS ORDERED: Sodium Chloride 0.9% 500 ML IV SCH (16:00)
[2023-05-23] MEDS: Sodium Chloride 0.9% 1,000 ML IV SCH ×2 (16:40→21:11)
[2023-05-23] MEDS: Mirtazapine 15 MG Soltab PO SCH (20:58)
[2023-05-23] MEDS: Atorvastatin Calcium 40 MG TAB PO SCH (20:59)
[2023-05-23] MEDS: Insulin Glargine 30 UNITS/0.3 ML VIAL SC SCH (21:04)
[2023-05-24] MEDS: Piperacillin/Tazobactam 3.375 GM in Sodium Chloride 0.9% 100 ML IVPB SCH ×2 (02:52→09:06)
[2023-05-24 04:55] LABS: Hematocrit 30.4 % (42.0-52.0); Hemoglobin 9.6 g/dL (14.0-18.0); Mean Corpuscular HGB CONC 31.6 g/dL (32.0-36.0); Mean Corpuscular Hemoglobin 31.6 pg (27.0-31.0); Mean Platelet Volume 9.6 fL (7.4-10.4); Platelet Count 153 10x3/uL (130-400); Red Blood Cell (RBC) Count 3.04 mill/uL (4.70-6.10)
[2023-05-24 05:09] LABS: Delete Auto Diff?? YES; Manual Diff?? YES
[2023-05-24 05:15] LABS: Anion Gap 13 mmol/L (10-20); BUN (Urea Nitrogen) 41 mg/dL (8.4-25.7); Calc. Creatinine Clearance 35 mL/min (70-130); Calcium 8.1 mg/dL (7.8-10.44); Carbon Dioxide 19 mmol/L (23-31); Chloride 109 mmol/L (98-107); Estimated GFR 41; Glucose 169 mg/dL (83-110); Sodium 137 mmol/L (136-145)
[2023-05-24 06:19] LABS: Anisocytosis SLIGHT = 6-15 cells HPF (0-5); Band 50 % (5-11); Burr Cells SLIGHT = 2-5 cells HPF (0-1); CellaVision Operator ID LAB.JMM; Elliptocytes SLIGHT = 2-5 cells HPF (0-1); Lymphocytes 4 % (21-51); Monocytes 2 % (0-10); Neutrophil 44 % (42-75); Platelet Adequacy Comment Platelets Normal; Polychromasia SLIGHT = 2-3 cells HPF (0-2); Total Cell Count 100
[2023-05-24] MEDS: Aspirin 81 mg Enteric Coated Tablet PO SCH (09:05)
[2023-05-24] MEDS: Famotidine 20 MG TAB PO SCH (09:05)
[2023-05-24] MEDS: Polyethylene Glycol 3350 17 GM Packet PO SCH (09:06)
[2023-05-24] MEDS: Carvedilol 6.25 MG TAB PO SCH ×2 (09:07→21:12)
[2023-05-24] MEDS: Lisinopril 20 MG TAB PO SCH (09:07)
[2023-05-24] MEDS: Hydrochlorothiazide 25 MG TAB PO SCH (09:07)
[2023-05-24] MEDS: Apixaban 5 MG TAB PO SCH ×2 (09:08→21:12)
[2023-05-24] MEDS: Sodium Chloride 0.9% 1,000 ML IV SCH (12:00)
[2023-05-24] MEDS ORDERED: LevoFLOXacin 500 mg/D5W 500 MG in Premix Bag 1 BAG IVPB SCH (12:30)
[2023-05-24 13:05] VITALS: BMI 25.4
[2023-05-24] MEDS: LevoFLOXacin 750 mg/D5W 750 MG in Premix Bag 1 BAG IVPB SCH (13:05)
[2023-05-24] MEDS: Atorvastatin Calcium 40 MG TAB PO SCH (21:12)
[2023-05-24] MEDS: Mirtazapine 15 MG Soltab PO SCH (21:12)
[2023-05-24] MEDS: Insulin Glargine 30 UNITS/0.3 ML VIAL SC SCH (21:13)
[2023-05-25] MEDS: Aspirin 81 mg Enteric Coated Tablet PO SCH (08:37)
[2023-05-25] MEDS: Apixaban 5 MG TAB PO SCH ×2 (08:38→20:08)
[2023-05-25] MEDS: Famotidine 20 MG TAB PO SCH (08:38)
[2023-05-25] MEDS: Hydrochlorothiazide 25 MG TAB PO SCH (08:39)
[2023-05-25] MEDS: Carvedilol 6.25 MG TAB PO SCH ×2 (08:39→20:08)
[2023-05-25] MEDS: Lisinopril 20 MG TAB PO SCH (08:39)
[2023-05-25] MEDS: Polyethylene Glycol 3350 17 GM Packet PO SCH (08:46)
[2023-05-25] MEDS: Sodium Chloride 0.9% 1,000 ML IV SCH ×2 (08:46→20:07)
[2023-05-25] MEDS: Atorvastatin Calcium 40 MG TAB PO SCH (20:08)
[2023-05-25] MEDS: Mirtazapine 15 MG Soltab PO SCH (20:08)
[2023-05-25] MEDS: Acetaminophen 325 MG TAB PO PRN (20:08)
[2023-05-25] MEDS: Insulin Glargine 30 UNITS/0.3 ML VIAL SC SCH (20:10)
[2023-05-26] MEDS: Apixaban 5 MG TAB PO SCH ×2 (08:41→22:14)
[2023-05-26] MEDS: Famotidine 20 MG TAB PO SCH (08:41)
[2023-05-26] MEDS: Aspirin 81 mg Enteric Coated Tablet PO SCH (08:41)
[2023-05-26] MEDS: Carvedilol 6.25 MG TAB PO SCH ×2 (08:41→22:14)
[2023-05-26] MEDS: Lisinopril 20 MG TAB PO SCH (08:42)
[2023-05-26] MEDS: Polyethylene Glycol 3350 17 GM Packet PO SCH (08:42)
[2023-05-26] MEDS: Hydrochlorothiazide 25 MG TAB PO SCH (08:42)
[2023-05-26] MEDS: LevoFLOXacin 750 mg/D5W 750 MG in Premix Bag 1 BAG IVPB SCH (12:27)
[2023-05-26] MEDS: HumaLOG 300 UNITS/3 ML VIAL SC PRN ×2 (12:30→18:26)
[2023-05-26] MEDS: Sodium Chloride 0.9% 1,000 ML IV SCH (17:08)
[2023-05-26] MEDS: Atorvastatin Calcium 40 MG TAB PO SCH (22:13)
[2023-05-26] MEDS: Mirtazapine 15 MG Soltab PO SCH (22:14)
[2023-05-26] MEDS: Insulin Glargine 30 UNITS/0.3 ML VIAL SC SCH (22:15)
[2023-05-27] MEDS: Aspirin 81 mg Enteric Coated Tablet PO SCH (08:35)
[2023-05-27] MEDS: Famotidine 20 MG TAB PO SCH (08:35)
[2023-05-27] MEDS: Apixaban 5 MG TAB PO SCH ×2 (08:36→20:52)
[2023-05-27] MEDS: Hydrochlorothiazide 25 MG TAB PO SCH (08:36)
[2023-05-27] MEDS: Carvedilol 6.25 MG TAB PO SCH ×2 (08:36→20:52)
[2023-05-27] MEDS: Lisinopril 20 MG TAB PO SCH (08:36)
[2023-05-27] MEDS: Polyethylene Glycol 3350 17 GM Packet PO SCH (08:36)
[2023-05-27] MEDS: Sodium Chloride 0.9% 1,000 ML IV SCH (08:40)
[2023-05-27] MEDS: HumaLOG 300 UNITS/3 ML VIAL SC PRN (17:56)
[2023-05-27] MEDS: Insulin Glargine 30 UNITS/0.3 ML VIAL SC SCH (20:53)
[2023-05-27] MEDS: Atorvastatin Calcium 40 MG TAB PO SCH (20:53)
[2023-05-27] MEDS: Mirtazapine 15 MG Soltab PO SCH (21:02)
[2023-05-28] MEDS: Sodium Chloride 0.9% 1,000 ML IV SCH (02:25)
[2023-05-28] MEDS: Hydrochlorothiazide 25 MG TAB PO SCH (08:56)
[2023-05-28] MEDS: Lisinopril 20 MG TAB PO SCH (08:56)
[2023-05-28] MEDS: Aspirin 81 mg Enteric Coated Tablet PO SCH (08:56)
[2023-05-28] MEDS: Polyethylene Glycol 3350 17 GM Packet PO SCH (08:57)
[2023-05-28] MEDS: Famotidine 20 MG TAB PO SCH (08:57)
[2023-05-28] MEDS: Carvedilol 6.25 MG TAB PO SCH ×2 (08:57→21:29)
[2023-05-28] MEDS: Apixaban 5 MG TAB PO SCH ×2 (08:57→21:27)
[2023-05-28 09:11] LABS: #Monocytes 0.7 thou/uL (0.11-0.59); #Neutrophils 13.8 thou/uL (1.40-6.50); %Basophils 0.2 % (0.0-1.0); %Eosinophils 0.3 % (0.0-10.0); %Lymphocytes 2.9 % (21.0-51.0); %Monocytes 4.6 % (0.0-10.0); %Neutrophils 87.1 % (42.0-75.0); Hemoglobin 10.2 g/dL (14.0-18.0); Mean Corpuscular HGB CONC 30.9 g/dL (32.0-36.0); Mean Corpuscular Volume 100.3 fl (78.0-98.0); Mean Platelet Volume 10.5 fL (7.4-10.4); Platelet Count 189 10x3/uL (130-400); RBC Distribution Width 17.2 % (11.5-14.5); Red Blood Cell (RBC) Count 3.29 mill/uL (4.70-6.10); White Blood Cell (WBC) Count 15.9 10x3/uL (4.8-10.8)
[2023-05-28 09:16] LABS: Anion Gap 12 mmol/L (10-20); BUN (Urea Nitrogen) 51 mg/dL (8.4-25.7); Calc. Creatinine Clearance 41 mL/min (70-130); Calcium 8.4 mg/dL (7.8-10.44); Carbon Dioxide 18 mmol/L (23-31); Chloride 119 mmol/L (98-107); Estimated GFR 51; Glucose 195 mg/dL (83-110); Potassium 2.9 mmol/L (3.5-5.1); Sodium 146 mmol/L (136-145)
[2023-05-28] MEDS ORDERED: Meropenem 1 GM in Sodium Chloride 0.9% 100 ML IVPB SCH ×2 (10:30→14:00)
[2023-05-28] MEDS: Dextrose 5% in Water 1,000 ML IV SCH ×2 (10:49→21:30)
[2023-05-28] MEDS: Potassium Chloride 20 MEQ in Premix Bag 1 BAG IVPB SCH ×2 (10:49→12:29)
[2023-05-28] MEDS: HumaLOG 300 UNITS/3 ML VIAL SC PRN ×3 (12:30→21:30)
[2023-05-28] MEDS: Atorvastatin Calcium 40 MG TAB PO SCH (21:25)
[2023-05-28] MEDS: Mirtazapine 15 MG Soltab PO SCH (21:26)
[2023-05-28] MEDS: Insulin Glargine 30 UNITS/0.3 ML VIAL SC SCH (21:27)
[2023-05-28] MEDS: Meropenem 1 GM in Sodium Chloride 0.9% 100 ML IVPB SCH (21:29)
[2023-05-29] MEDS: Dextrose 5% in Water 1,000 ML IV SCH ×2 (04:58→16:09)
[2023-05-29] MEDS: Meropenem 1 GM in Sodium Chloride 0.9% 100 ML IVPB SCH ×2 (05:00→17:05)
[2023-05-29] MEDS: HumaLOG 300 UNITS/3 ML VIAL SC PRN ×3 (06:20→17:05)
[2023-05-29] MEDS: Polyethylene Glycol 3350 17 GM Packet PO SCH (09:40)
[2023-05-29] MEDS: Aspirin 81 mg Enteric Coated Tablet PO SCH (09:40)
[2023-05-29] MEDS: Carvedilol 6.25 MG TAB PO SCH ×2 (09:41→20:49)
[2023-05-29] MEDS: Apixaban 5 MG TAB PO SCH ×2 (09:41→20:50)
[2023-05-29] MEDS: Famotidine 20 MG TAB PO SCH (09:41)
[2023-05-29 10:16] LABS: #Eosinphils 0.1 thou/uL (0.0-0.7); #Monocytes 0.8 thou/uL (0.11-0.59); #Neutrophils 14.2 thou/uL (1.40-6.50); %Basophils 0.1 % (0.0-1.0); %Eosinophils 0.3 % (0.0-10.0); %Lymphocytes 2.5 % (21.0-51.0); %Monocytes 4.9 % (0.0-10.0); %Neutrophils 89.9 % (42.0-75.0); Hematocrit 29.6 % (42.0-52.0); Hemoglobin 9.4 g/dL (14.0-18.0); Mean Corpuscular HGB CONC 31.8 g/dL (32.0-36.0); Mean Corpuscular Hemoglobin 30.6 pg (27.0-31.0); Mean Corpuscular Volume 96.4 fl (78.0-98.0); Mean Platelet Volume 9.9 fL (7.4-10.4); Platelet Count 209 10x3/uL (130-400); RBC Distribution Width 17.3 % (11.5-14.5); Red Blood Cell (RBC) Count 3.07 mill/uL (4.70-6.10); White Blood Cell (WBC) Count 15.8 10x3/uL (4.8-10.8)
[2023-05-29 10:42] LABS: Anion Gap 12 mmol/L (10-20); BUN (Urea Nitrogen) 45 mg/dL (8.4-25.7); Calc. Creatinine Clearance 44 mL/min (70-130); Calcium 8.2 mg/dL (7.8-10.44); Carbon Dioxide 19 mmol/L (23-31); Chloride 117 mmol/L (98-107); Estimated GFR 55; Glucose 218 mg/dL (83-110); Potassium 2.7 mmol/L (3.5-5.1); Sodium 145 mmol/L (136-145)
[2023-05-29] MEDS ORDERED: Potassium Chloride 20 MEQ TAB PO SCH (12:00)
[2023-05-29 12:30] LABS: Magnesium 2.4 mg/dL (1.6-2.6)
[2023-05-29] MEDS: Atorvastatin Calcium 40 MG TAB PO SCH (20:49)
[2023-05-29] MEDS: Mirtazapine 15 MG Soltab PO SCH (20:49)
[2023-05-29] MEDS: Insulin Glargine 30 UNITS/0.3 ML VIAL SC SCH (20:50)
[2023-05-30] MEDS: Dextrose 5% in Water 1,000 ML IV SCH ×3 (04:29→22:10)
[2023-05-30] MEDS: Meropenem 1 GM in Sodium Chloride 0.9% 100 ML IVPB SCH (05:36)
[2023-05-30] MEDS: HumaLOG 300 UNITS/3 ML VIAL SC PRN ×3 (05:36→17:26)
[2023-05-30 07:09] LABS: Anion Gap 10 mmol/L (10-20); BUN (Urea Nitrogen) 45 mg/dL (8.4-25.7); Calc. Creatinine Clearance 45 mL/min (70-130); Carbon Dioxide 21 mmol/L (23-31); Chloride 114 mmol/L (98-107); Estimated GFR 56; Glucose 247 mg/dL (83-110); Magnesium 2.7 mg/dL (1.6-2.6); Potassium 2.8 mmol/L (3.5-5.1); Sodium 142 mmol/L (136-145)
[2023-05-30] MEDS ORDERED: Potassium Chloride 20 MEQ TAB PO SCH ×2 (08:00→12:00)
[2023-05-30] MEDS: Carvedilol 6.25 MG TAB PO SCH ×2 (09:20→21:38)
[2023-05-30] MEDS: Polyethylene Glycol 3350 17 GM Packet PO SCH (09:20)
[2023-05-30] MEDS: Famotidine 20 MG TAB PO SCH (09:21)
[2023-05-30] MEDS: Apixaban 5 MG TAB PO SCH ×2 (09:21→21:39)
[2023-05-30] MEDS: Aspirin 81 mg Enteric Coated Tablet PO SCH (09:21)
[2023-05-30] MEDS: Hydrochlorothiazide 25 MG TAB PO SCH (09:23)
[2023-05-30] MEDS ORDERED: LevoFLOXacin 500 mg/D5W 500 MG in Premix Bag 1 BAG IVPB SCH (13:15)
[2023-05-30] MEDS ORDERED: LevoFLOXacin 750 mg/D5W 750 MG in Premix Bag 1 BAG IVPB SCH (15:00)
[2023-05-30] MEDS: Mirtazapine 15 MG Soltab PO SCH (21:38)
[2023-05-30] MEDS: Insulin Glargine 30 UNITS/0.3 ML VIAL SC SCH (21:39)
[2023-05-30] MEDS: Atorvastatin Calcium 40 MG TAB PO SCH (21:39)
[2023-05-31 07:05] LABS: Anion Gap 9 mmol/L (10-20); BUN (Urea Nitrogen) 42 mg/dL (8.4-25.7); Calc. Creatinine Clearance 46 mL/min (70-130); Calcium 7.8 mg/dL (7.8-10.44); Carbon Dioxide 20 mmol/L (23-31); Chloride 112 mmol/L (98-107); Estimated GFR 58; Glucose 290 mg/dL (83-110); Potassium 3.3 mmol/L (3.5-5.1); Sodium 138 mmol/L (136-145)
[2023-05-31] MEDS ORDERED: Potassium Chloride 20 MEQ TAB PO SCH ×2 (08:00→12:00)
[2023-05-31] MEDS: Dextrose 5% in Water 1,000 ML IV SCH (08:39)
[2023-05-31] MEDS: Polyethylene Glycol 3350 17 GM Packet PO SCH (08:40)
[2023-05-31] MEDS: Apixaban 5 MG TAB PO SCH ×2 (08:40→20:04)
[2023-05-31] MEDS: Famotidine 20 MG TAB PO SCH (08:40)
[2023-05-31] MEDS: Aspirin 81 mg Enteric Coated Tablet PO SCH (08:40)
[2023-05-31] MEDS: Carvedilol 6.25 MG TAB PO SCH ×2 (08:40→20:04)
[2023-05-31] MEDS: Hydrochlorothiazide 25 MG TAB PO SCH (08:40)
[2023-05-31] MEDS: Lisinopril 20 MG TAB PO SCH (10:13)
[2023-05-31] MEDS: HumaLOG 300 UNITS/3 ML VIAL SC PRN ×3 (12:17→22:45)
[2023-05-31] MEDS: Atorvastatin Calcium 40 MG TAB PO SCH (20:04)
[2023-05-31] MEDS: Mirtazapine 15 MG Soltab PO SCH (20:08)
[2023-05-31] MEDS: Acetaminophen 325 MG TAB PO PRN (20:08)
[2023-05-31] MEDS ORDERED: Insulin Glargine 30 UNITS/0.3 ML VIAL SC SCH ×2 (21:00)
[2023-06-01] MEDS ORDERED: LevoFLOXacin 750 MG TAB PO SCH (06:00)
[2023-06-01] MEDS: HumaLOG 300 UNITS/3 ML VIAL SC PRN (06:23)
[2023-06-01 07:13] LABS: Anion Gap 9 mmol/L (10-20); BUN (Urea Nitrogen) 45 mg/dL (8.4-25.7); Calc. Creatinine Clearance 47 mL/min (70-130); Calcium 7.9 mg/dL (7.8-10.44); Carbon Dioxide 23 mmol/L (23-31); Chloride 114 mmol/L (98-107); Estimated GFR 60; Glucose 185 mg/dL (83-110); Potassium 4.2 mmol/L (3.5-5.1); Sodium 142 mmol/L (136-145)
[2023-06-01] MEDS: Hydrochlorothiazide 25 MG TAB PO SCH (09:37)
[2023-06-01] MEDS: Carvedilol 6.25 MG TAB PO SCH (09:37)
[2023-06-01] MEDS: Apixaban 5 MG TAB PO SCH (09:38)
[2023-06-01] MEDS: Famotidine 20 MG TAB PO SCH (09:38)
[2023-06-01] MEDS: Lisinopril 20 MG TAB PO SCH (09:38)
[2023-06-01] MEDS: Polyethylene Glycol 3350 17 GM Packet PO SCH (09:39)
[2023-06-01] MEDS: Aspirin 81 mg Enteric Coated Tablet PO SCH (09:39)
[2023-06-01 12:08] VITALS: BP 122/73; TEMP 97.5
[2023-06-01] MEDS ORDERED: LevoFLOXacin 750 mg/D5W 750 MG in Premix Bag 1 BAG IVPB SCH (15:00)
== END 2023-06-01 20:02 | DRG 871 ==
LOC: ERS 17:44 → 2NO 05-23 00:26 → T4-A 05-24 12:48
PROVIDERS: ADMIT Student in an Organized Health Care Education/Training Program; ATTEND Internal Medicine
PROC: 3E03329 Introduction of Other Anti-infective into Peripheral Vein, Percutaneous Approach (ICD-10-PCS; 2023-05-22)
PROC: 0T9B70Z Drainage of Bladder with Drainage Device, Via Natural or Artificial Opening (ICD-10-PCS; principal; 2023-05-23)
DX: A41.9 Sepsis, unspecified organism (principal); G93.41 Metabolic encephalopathy; N39.0 Urinary tract infection, site not specified; N17.9 Acute kidney failure, unspecified; E87.20 Acidosis, unspecified; I50.22 Chronic systolic (congestive) heart failure; Z66 Do not resuscitate; F03.90 Unspecified dementia, unspecified severity, without behavioral disturbance, psychotic disturbance, mood disturbance, and anxiety; I11.0 Hypertensive heart disease with heart failure; I25.10 Atherosclerotic heart disease of native coronary artery without angina pectoris; R53.81 Other malaise; H40.9 Unspecified glaucoma; I95.9 Hypotension, unspecified; R26.81 Unsteadiness on feet; E11.69 Type 2 diabetes mellitus with other specified complication; E87.6 Hypokalemia; Z79.82 Long term (current) use of aspirin; Z79.899 Other long term (current) drug therapy; Z95.2 Presence of prosthetic heart valve; Z95.828 Presence of other vascular implants and grafts; B95.2 Enterococcus as the cause of diseases classified elsewhere
CPT/HCPCS: 36415; 36416; 51701; 71045; 80048; 80053; 81001; 83605; 83735; 85025; 87040; 87077; 87086; 87186; 93005; 94760; 96361; 96365; 96366; 96367; J0692; J1815; J1956; J2185; J2543; J3370-JW; J3480; J3490; J7030; J7050; J7070